=== PATIENT | male | born 1945 | race Caucasian/White ===

== ENCOUNTER 2018-09-21 20:50 | Inpatient (IN) ==
[2018-09-21] MEDS ORDERED: NS 1,000 ML IV ONE (23:35)
[2018-09-22 00:51] LABS: BASO# 0.03 X1000 (0.0-0.2); BASO% 0.3 % (0.0-0.8); EOS# 0.07 X1000 (0.0-0.7); EOS% 0.8 % (0.0-10.0); HEMATOCRIT 51.4 % (42.0-52.0); HEMOGLOBIN 16.8 g/dL (14.0-18.0); IMM GRAN# 0.02 X1000 (0.0-0.04); IMM GRAN% 0.2 % (0.0-0.5); LYMPH# 1.95 X1000 (1.2-3.4); LYMPH% 22.6 % (20.5-51.1); MCH 29.3 PG (27-31); MCHC 32.7 g/dL (33-37); MCV 89.7 FL (81-99); MONO# 0.74 X1000 (0.11-0.59); MONO% 8.6 % (1.7-9.3); MPV 10.4 FL (7.4-10.4); NEUT# 5.81 X1000 (1.4-6.5); NEUT% 67.5 % (42.2-75.2); PLT 198 X1000 (130-400); RBC 5.73 XMIL (4.7-6.1); RDW 13.3 % (11.5-14.5); WBC 8.62 X1000 (4.8-10.8)
[2018-09-22 01:28] LABS: ALB/GLOB RATIO 0.9; ALBUMIN 4.2 g/dL (3.5-5.0); CALCIUM 9.9 mg/dL (8.8-10.2); CREATININE 1.6 mg/dL (0.7-1.2); POTASSIUM 3.8 mmol/L (3.5-5.1); TOTAL BILIRUBIN 1.14 mg/dL (0.20-1.00); TOTAL PROTEIN 8.8 g/dL (6.3-8.3)
[2018-09-22 01:40] LABS: URINE SOURCE CATH
[2018-09-22 01:41] LABS: BILIRUBIN URINE SMALL (NEGATIVE); COLOR YELLOW; GLUCOSE URINE NEGATIVE (NEGATIVE); KETONE URINE TRACE mg/dL (NEGATIVE); SP GRAVITY URINE 1.031; TURBIDITY URINE CLEAR (CLEAR); UR EPITHELIAL CELLS >10 /HPF (<10); URINE BACTERIA NEGATIVE /HPF; URINE RBC <10 /HPF (<10); URINE WBC <10 /HPF (<10)
[2018-09-22 01:42] LABS: BLOOD URINE NEGATIVE (NEGATIVE); LEUKOCYTES URINE SMALL (NEGATIVE); NITRITE URINE NEGATIVE (NEGATIVE); PROTEIN URINE TRACE mg/dL (NEGATIVE); UROBILINOGEN URINE 2 mg/dL (NORMAL)
--- NOTE | 2018-09-22 02:49 | PROVIDER DOCUMENTATION ---
This chart was entered by Shira Carpenter Scribe, acting as scribe for Ruma Howard MD. HPI-General Adult - General Chief Complaint: General Adult Stated Complaint: UNABLE TO SWALLOW X 30 HRS. (PARKINSONS) Time Seen by Provider: 09/21/18 23:31 Source: patient Allergies/Adverse Reactions: Patient Allergies Allergy/AdvReac Type Severity Reaction Status Date / Time No Known Allergies Allergy Verified 05/19/18 17:00 Home Medications: Home Medication List Medication Instructions Recorded Confirmed Last Taken Type Rasagiline Mesylate [Azilect] 1 mg PO DAILY 12/17/11 05/19/18 05/19/18 History Citalopram Hydrobromide 20 mg PO HS 10/08/14 05/19/18 05/18/18 History [Citalopram HBr] Amlodipine [Norvasc] 5 mg PO DAILY 11/18/15 05/19/18 05/19/18 History Donepezil [Aricept] 10 mg PO QAM 11/18/15 05/19/18 05/19/18 History Glycopyrrolate 1 mg PO BID 11/18/15 05/19/18 05/19/18 History Pantoprazole [Protonix] 40 mg PO DAILY 11/18/15 05/19/18 05/19/18 History Quetiapine [Seroquel] 25 mg PO DAILY 11/18/15 05/19/18 05/19/18 History Carbidopa/Levodopa 1 tab [id number] 11/20/15 05/19/18 05/19/18 History [Carbidopa-Levodopa 25-100 Tab] Entacapone [Comtan] 200 mg 4XDAY 11/20/15 05/19/18 05/19/18 History Dutasteride [Avodart] 0.5 mg PO HS #30 capsule 11/26/15 05/19/18 05/19/18 Rx Metoprolol Succinate E.r. [Toprol 25 mg PO DAILY #30 tablet 11/26/15 05/19/18 05/19/18 Rx Xl] Docusate Sodium [Colace] 100 mg PO DAILY #10 cap 06/16/17 05/19/18 05/19/18 Rx Magnesium Citrate [Citrate of 300 ml PO ONCE #1 bottle 06/16/17 05/19/18 05/19/18 Rx Magnesia] - History of Present Illness -Gen Adult Nature of Presenting Problems: Pt is 72/M presenting to ED w/ family at bedside stating that he is unable to eat or drink. Pt has advanced staged Parkinson's Disease and it has started effecting his swallowing. Pt was here at the end of August for the same and given saline to rehydrate and then he was discharged. Family is unsure as to why he was not admitted then. Pt has home health that comes out and he has hx of speech therapy. Pt also has been for DBS testing and was given a feeding tube, but he only had it for a short time and it was deemed unneccesary at that time and taken out, this was three and 1/2 years ago. Family sts that he has lost about 25lbs since August and continues to lose weight because he has not had any nutrition. Location of Pain/Injury: reports: none Quality of Pain: reports: none Severity: reports: moderate Onset/Duration: reports: gradual Timing: reports: getting worse Context/Activities at Onset: reports: none Modifying Factors: improves with: nothing Associated Symptoms: reports: denies symptoms Similar Symptoms Previously?: Yes Recently seen or treated by another doctor?: Yes Review of Systems - Adult - REVIEW OF SYSTEMS - ADULT Constitutional: reports: no symptoms reported Eyes: reports: no symptoms reported Ears, Nose, Mouth & Throat: reports: no symptoms reported Cardiovascular: reports: no symptoms reported. denies: chest pain Respiratory: reports: no symptoms reported Gastrointestinal: reports: no symptoms reported. denies: abdominal pain, nausea, vomiting Genitourinary: reports: no symptoms reported Musculoskeletal: reports: no symptoms reported Integumentary: reports: no symptoms reported Neurological: reports: no symptoms reported. denies: dizziness/vertigo, headache/migraines Psychiatric: reports: no symptoms reported Endocrine: reports: no symptoms reported Hematologic/Lymphatic: reports: no symptoms reported Allergic/Immunologic: reports: no symptoms reported All Other Systems: Reviewed and Negative Past History - Adult - PAST MEDICAL HISTORY-ADULT Review of Records: reports: Old Records Reviewed, Nursing Assessment Review, Medications Reviewed, Social history reviewed & non-contributory. Major Childhood Illnesses: reports: denies history Cardiovascular: reports: HTN Respiratory: reports: denies history Gastrointestinal: reports: denies history Obstetrical/Gynecological: reports: denies history Genitourinary: reports: denies history Musculoskeletal: reports: denies history Neurological: reports: Parkinson's Endocrine/Immune: reports: denies history Other Conditions: reports: denies history - PRIOR SURGERIES/PROCEDURES Surgical/Procedure History: reports: other (AAA repair, TURP) - PRIOR HOSPITALIZATIONS Prior Hospitalizations: reports: none - IMMUNIZATION STATUS Childhood Immunizations: See Nurse Assessment Flu Vaccine: See Nurse Assessment - FAMILY HISTORY Family History: reviewed, not pertinent - SOCIAL HISTORY Smoking: quit greater than 1 year Substance Use: none/never Alcohol Use Frequency: never Living Situation: family Physical Exam-General - PHYSICAL EXAM-ADULT Initial Vital Signs Reviewed: Yes - CONSTITUTIONAL General Appearance: appears well, alert, no apparent distress, thin, other (frail) - EYES Eyes: PERRL/EOMI, pink conjunctivae - HEAD, EARS, NOSE, MOUTH & THROAT HENMT: normocephalic/atraumatic, normal ENT inspection, TMs normal, pharynx normal, other (dry mucous membranes) - NECK Neck: non-tender, full range of motion, supple, normal inspection - RESPIRATORY Respiratory: lungs clear - CARDIOVASCULAR Cardiovascular: regular rate, rhythm - GASTROINTESTINAL (ABDOMEN) Abdominal Exam: normal bowel sounds, non tender, soft - MUSCULOSKELETAL Back Exam: normal inspection Extremity: normal range of motion, non-tender, normal gait, normal inspection - SKIN Integumentary: normal color, warm/dry, other (dry, scaly skin) - NEUROLOGIC Neurologic: grossly normal - PSYCHIATRIC Psych/Mental Status: normal mood/affect, normal thought content, normal thought process, oriented x 3 Progress - PLAN OF CARE/RESULTS Progress/Plan/Lab Results: Vital Signs - 8 hr 09/21/18 20:52 Temperature 97.4 F L Pulse Rate 62 Respiratory Rate 16 Blood Pressure 134/88 O2 Sat by Pulse Oximetry 93 L Orders Category Date Time Status CBC WITH ELECTRONIC DIFF [HEME] Stat Lab 09/21/18 23:34 Uncollected CMP [COMPREHENSIVE METABOLIC PANEL] [CHEM] Stat Lab 09/21/18 23:34 Uncollected URINALYSIS W/POSS RFLX CULT [URINALYSIS] Stat Lab 09/21/18 23:34 Uncollected 0.9% Sodium Chloride Inj [Ns] 1,000 ml Med 09/21/18 23:35 Active IV 999 mls/hr Result Diagrams: 09/22/18 00:32 09/22/18 00:32 - CONSULTS/PCP/HOSPITALIST Notification #1 *Consult/PCP/Hospitalist*: Dr. Mcmanus Time Discussed: 02:49 Consult Disposition: Admit Departure - Departure Date of Disposition Decision: 09/22/18 Time of Disposition Decision: 02:49 DIAGNOSIS: Hypernatremia, PAUL (acute kidney injury), Swallowing dysfunction Disposition: ADMITTED INPATIENT 09 Certified Medical Emergency: Emergent Condition: Stable Referrals and Follow-Ups: Linda Godfrey MD [Primary Care Provider] - - Critical Care Note This patient required my direct & personal management of CC.: No Attestation - Physician/ GLENIS Attestation Patient care was provided by Advanced Practice Provider:: No The physician spent face to face time with patient:: Yes Advanced Practice Provider documentation review:: Supervising physician onsite and consulted in the evaluation and care of this patient. The physician did have a face to face encounter with the patient. This chart was documented by the indicated scribe, (Shira Carpenter, Gabbi) and accurately reflects the services I performed and decisions made by me, Ruma Howard MD, as attested by the provider's signature.
--- NOTE | 2018-09-22 04:15 | HISTORY AND PHYSICAL ---
PRIMARY CARE PHYSICIAN: Dr. Godfrey. CHIEF COMPLAINT: Difficulty swallowing, mental status changes. HISTORY OF PRESENTING ILLNESS: A 72-year-old male with a history of Parkinson's, hypertension, who had presented to emergency department with 4 days history of worsening mental status changes and also difficulty swallowing. The patient was not communicating well and most of the history is obtained from family members. As per family, he has not been taking his medicines for the past 4 days because he was having difficulty swallowing, seemed more confused and not really that responsive. He was evaluated in the emergency department. The patient seemed dehydrated and due to his overall presenting symptoms it was thought that we will place him for observation for further evaluation and management. At the time of my examination, patient was just basically staring and was not providing any history. PAST MEDICAL HISTORY: Parkinson's, hypertension. PAST SURGICAL HISTORY: Deep brain stimulator, TURP, aortic aneurysm repair. ALLERGIES: No known drug allergies. CURRENT MEDICATIONS: Include Norvasc 5 mg p.o. daily, carbidopa/levodopa 2500 one p.o. 4 times a day, citalopram 20 mg p.o. at bedtime, Aricept 10 mg p.o. q.a.m., Avodart 0.5 mg p.o. at bedtime, Comtan 200 mg 4 times a day, metoprolol 25 mg p.o. daily, pantoprazole 40 mg p.o. daily, Seroquel 25 mg p.o. daily. SOCIAL HISTORY: He is a former smoker. History of social alcohol use. No history of illicit drug use. FAMILY HISTORY: Positive for coronary disease in mother. REVIEW OF SYSTEM: Was limited due to patient was not communicating. PHYSICAL EXAMINATION: GENERAL: The patient is resting comfortably, basically just stares. VITAL SIGNS: Temperature 97.4 degrees, pulse 62, respirations 16, blood pressure 134/88. HEENT: Atraumatic, normocephalic. PERRLA. NECK: No masses. CHEST: Clear to auscultation. CARDIOVASCULAR: Regular rate and rhythm. ABDOMEN: Soft, positive bowel sounds. EXTREMITIES: No edema. NEUROLOGIC: He is awake and arousable, but is not really communicating. GENITOURINARY: No bladder distention. SKIN: Warm. LABORATORIES AND STUDIES: WBCs 8.62, hemoglobin 16.8, hematocrit 51.4, platelets 198,000. Sodium 148, potassium 3.8, chloride 108, CO2 is 22, BUN is 28, creatinine is 1.6, glucose is 88. ASSESSMENT: A 72-year-old male with a history of Parkinson's and hypertension who had presented to emergency department with 4 days history of mental status changes and difficulty swallowing. He was evaluated in the emergency department. The patient seemed clinically dehydrated and due to his presenting symptoms he will require admission for further management. 1. Altered mental status. 2. Dysphagia. 3. Dehydration. 4. Acute kidney injury. 5. Parkinson's. 6. Hypertension. PLAN: 1. We will admit patient to medical floor with telemetry. 2. We will continue with neuro checks. 3. We will continue with IV fluids. 4. We will restart his home medications for his Parkinson's. 5. Monitor his renal function. 6. We will continue with his antihypertensive agents. 7. Put patient on DVT prophylaxis with SCDs. 8. We will continue to follow, and reassess and make further recommendation based on patient's clinical course. cc: Gilson Mcmanus MD
[2018-09-22] MEDS: 1/2 NS 1,000 ML IV SCH ×3 (05:36→16:09)
[2018-09-22] MEDS: CLINIMIX E 4.25%-5% SOLUTION 1,000 ML IV SCH (15:57)
[2018-09-22] MEDS: LIPOSYN 20% 250 ML IV SCH (15:58)
--- NOTE | 2018-09-22 17:03 | PROGRESS NOTE ---
DATE: 09/22/2018 SUBJECTIVE: Today Mr. Kumar referred to be doing fairly okay. The was at the bedside at the time of the encounter. She was trying to feed him with some Coke, and it appeared that Mr. Kumar was actually choking, and would cough multiple times after every sip. OBJECTIVE: Vital signs: Blood pressure is 174/87, pulse of 90, respirations 20, temperature 97.7. The patient is saturating 100% on room air. General: Mr. Kumar is a 72-year-old male. He is in bed. He does not seem to be in distress. Mucosa is pink, slightly dry. Anicteric. Acyanotic. Neck: Supple. Chest: Good air entry bilaterally. Few crackles posteriorly. There is a port on the right anterior chest wall. Cardiovascular: Regular rate and rhythm. Abdomen: Soft. Extremities: No pedal edema. CATEGORY PLANNER: Patient is awake, alert, oriented to person, disoriented to place and time. Has a very feeble and weak voice. LABORATORY DATA: Has been reviewed. WBCs 8.62, hemoglobin is 16.8, platelet count of 198. Chemistry is also reviewed. Creatinine is 1.6. The latest we have on her last month was 1.3. ASSESSMENT: 1. Dysphagia, unclear etiology. I presume this is probably just from old age (presbyesophagus); however, other potential etiologies need to be completely ruled out. The patient will get a swallow evaluation with speech therapy under fluoroscopy to rule out any potential etiology. 2. Suspected aspirations. Aspiration precautions have been recommended. 3. Acute on chronic kidney disease. 4. Clinical volume depletion. Will continue with gentle hydration. 5. Mild hypernatremia due to dehydration. 6. History of advanced Parkinson disease. PLAN: In general, Mr. Kumar seems to be fairly stable. We are going to keep him n.p.o. until after the swallow evaluation. We will also get speech therapy to see him. We will start him on Clinimix with lipid infusion for both nutritional and hydration support. We will get physical therapy also to start working with him. Depending on the swallow evaluation, then we will give further recommendations. I have discussed the plan with the , who was at the bedside at the time of the encounter. cc: Radu Zavala MD
[2018-09-23] MEDS: 1/2 NS 1,000 ML IV SCH (04:05)
[2018-09-23] MEDS: CLINIMIX E 4.25%-5% SOLUTION 1,000 ML IV SCH ×2 (04:05→18:17)
[2018-09-23 06:45] LABS: BASO# 0.01 X1000 (0.0-0.2); BASO% 0.1 % (0.0-0.8); EOS# 0.14 X1000 (0.0-0.7); EOS% 1.4 % (0.0-10.0); HEMOGLOBIN 14.4 g/dL (14.0-18.0); IMM GRAN# 0.02 X1000 (0.0-0.04); IMM GRAN% 0.2 % (0.0-0.5); LYMPH# 1.64 X1000 (1.2-3.4); LYMPH% 15.9 % (20.5-51.1); MCH 29.8 PG (27-31); MCHC 32.7 g/dL (33-37); MCV 90.9 FL (81-99); MONO% 5.8 % (1.7-9.3); MPV 10.3 FL (7.4-10.4); NEUT# 7.88 X1000 (1.4-6.5); NEUT% 76.6 % (42.2-75.2); PLT 151 X1000 (130-400); RBC 4.84 XMIL (4.7-6.1); RDW 13.1 % (11.5-14.5); WBC 10.29 X1000 (4.8-10.8)
[2018-09-23 07:13] LABS: AGAP 11; BUN 22 mg/dL (8-22); CALCIUM 8.8 mg/dL (8.8-10.2); CHLORIDE 107 mmol/L (98-107); COSMO 285; CREATININE 1.1 mg/dL (0.7-1.2); ESTIMATED GFR > 60; GLUCOSE 98 mg/dL (70-104); POTASSIUM 4.1 mmol/L (3.5-5.1); SODIUM 141 mmol/L (136-145); TCO2 23 mmol/L (25-35)
--- NOTE | 2018-09-23 09:35 | Diag Imaging Result Doc PS360 ---
EXAM: CHEST-PORTABLE - 09/23/2018 HISTORY: dyspnea TECHNIQUE: Portable chest COMPARISON: 08/31/2018 FINDINGS: Heart size is normal. There are apparent COPD changes. There has been some further decrease in basilar opacities compared to prior. There is no new consolidation, pleural effusion, or pneumothorax identified. IMPRESSION: Apparent COPD changes. Some further decrease in basilar opacities compared to prior. Electronically signed by Jerry Richey 09/23/2018 9:32 AM
[2018-09-23] MEDS ORDERED: SEROQUEL PO PRN ×2 (10:05→14:12)
--- NOTE | 2018-09-23 10:30 | PROGRESS NOTE ---
DATE: 09/23/2018 SUBJECTIVE: This morning Mr. Kumar referred to be doing a little better. He looks more alert than yesterday. was at the bedside at the time of the encounter. OBJECTIVE: Vital signs: Blood pressure is 166/88, pulse of 101, respiration is 22, temperature 97.9 degrees. The patient is saturating 97% on room air. On general exam, Mr. Kumar is a 72- year-old gentleman. He is in bed. No distress. Mucosa is pink and moist. Anicteric. Acyanotic. Neck is supple. Chest with good air entry bilateral. A few crackles in the posterior lung dodd. Cardiovascular: Regular rate and rhythm. There are no murmurs, no rubs, no gallops. Gastrointestinal: The abdomen is soft. Extremities: No pedal edema. Central Nervous System: Patient is awake, alert, oriented to person and to place, disoriented to time. Very feeble and weak in voice and seems to have no expression on his face (mask face, which would be consistent with his underlying Parkinson disease). Musculoskeletal: The patient has some erythematous scaly lesions on his face. He also has a generator pocket on the right anterior chest wall. DIAGNOSTIC STUDIES: Laboratory data has been reviewed. CBC is completely normal. Chemistry: Sodium is down to 141, and creatinine has normalized at 1.1. ASSESSMENT: 1. Dysphagia. The patient is pending a swallow evaluation tomorrow. 2. Suspected aspirations. We will continue to observe aspiration pneumonia. From the family, it sounds like Mr. Kumar does better with a pureed diet and not so with liquid. We will eventually get more objective findings on the swallow evaluation. 3. Acute kidney injury. Creatinine has normalized. 4. Clinical volume depletion, improved. 5. Advanced Parkinson disease. Patient follows up with Neurology in [place]. He is currently on triple Parkinson medications, and he is also status post a brain stimulator. 6. Generalized weakness and deconditioning. Physical Therapy has been consulted. In general, we are going to continue with the Clinimix and lipid infusion. We will restart his medications today. Try and mix them with applesauce so he will be able to tolerate it. The patient is pending a swallow evaluation and then go from there. If there is a remarkable aspiration risk and the patient is not able to move the esophagus at all, then I will get Gastroenterology to evaluate the patient for possible PEG tube placement. cc: Radu Zavala MD
[2018-09-23] MEDS: LIPOSYN 20% 250 ML IV SCH (13:03)
[2018-09-23] MEDS: SINEMET 25/100 PO SCH ×4 (13:03→20:47)
[2018-09-23] MEDS: COMTAN PO SCH ×3 (17:47→20:36)
[2018-09-23] MEDS: CELEXA PO SCH ×2 (20:36→20:48)
[2018-09-24 07:26] LABS: BASO# 0.02 X1000 (0.0-0.2); BASO% 0.1 % (0.0-0.8); EOS# 0.09 X1000 (0.0-0.7); EOS% 0.6 % (0.0-10.0); HEMATOCRIT 48.1 % (42.0-52.0); HEMOGLOBIN 16.1 g/dL (14.0-18.0); IMM GRAN# 0.05 X1000 (0.0-0.04); IMM GRAN% 0.3 % (0.0-0.5); LYMPH% 10.8 % (20.5-51.1); MCHC 33.5 g/dL (33-37); MCV 89.7 FL (81-99); MONO# 0.74 X1000 (0.11-0.59); MONO% 4.7 % (1.7-9.3); MPV 10.9 FL (7.4-10.4); NEUT# 13.18 X1000 (1.4-6.5); NEUT% 83.5 % (42.2-75.2); PLT 149 X1000 (130-400); RBC 5.36 XMIL (4.7-6.1); RDW 13.2 % (11.5-14.5); WBC 15.78 X1000 (4.8-10.8)
[2018-09-24 07:47] LABS: AGAP 15; ALBUMIN 3.6 g/dL (3.5-5.0); BUN 25 mg/dL (8-22); CALCIUM 9.2 mg/dL (8.8-10.2); CHLORIDE 101 mmol/L (98-107); COSMO 276; CREATININE 1.1 mg/dL (0.7-1.2); ESTIMATED GFR > 60; GLUCOSE 90 mg/dL (70-104); PHOSPHORUS 3.5 mg/dL (2.7-4.5); POTASSIUM 4.6 mmol/L (3.5-5.1); SODIUM 136 mmol/L (136-145); TCO2 20 mmol/L (25-35)
[2018-09-24] MEDS ORDERED: RASAGILINE MESYLATE PO SCH (09:00)
[2018-09-24] MEDS ORDERED: PROTONIX PO SCH (09:00)
[2018-09-24] MEDS ORDERED: NORVASC PO SCH (09:00)
[2018-09-24] MEDS: SINEMET 25/100 PO SCH (09:40)
[2018-09-24] MEDS: COMTAN PO SCH (09:40)
[2018-09-24] MEDS: CLINIMIX E 4.25%-5% SOLUTION 1,000 ML IV SCH (09:40)
--- NOTE | 2018-09-24 11:00 | Diag Imaging Result Doc PS360 ---
EXAM: BA SWALLOW W/VIDEO SPEECH THER 09/24/2018 HISTORY: difficulty swallowing/aspirations TECHNIQUE: Modified barium swallow, 192 images, fluoroscopy time 50 seconds, 12 mGy. COMMENT: The patient aspirated on the first swallow which elicited a somewhat delayed cough reflex. The swallow of barium-containing bleeding resulted in very slow passage of the bolus past the glottis. IMPRESSION: Aspiration of thin liquids. Delayed swallow of pudding. Electronically signed by Skip Reagan 09/24/2018 10:58 AM
[2018-09-24] MEDS: LIPOSYN 20% 250 ML IV SCH (13:39)
--- NOTE | 2018-09-24 13:59 | PROGRESS NOTE ---
DATE: 09/24/2018 SUBJECTIVE: This morning, Mr. Kumar referred to be doing okay. Denies any new complaints. The was at the bedside as well as a nephew at the time of the encounter. OBJECTIVE: Vital Signs: Blood pressure is 148/74, pulse of 60, respirations are 21, temperature is 98.4 degrees. General Examination: Mr. Kumar is a 72-year-old, gentleman. He is in bed. No distress. HEENT: Mucosa is pink and moist. Anicteric. Acyanotic. Neck: Supple. Chest: Good air entry bilateral. No crepitations. No rhonchi. Cardiovascular: Regular rate and rhythm. No murmurs, no rubs, no gallops. There is a generator pocket on the right anterior chest wall. GI: Abdomen is soft, nontender. Bowel sounds are present. WOOD CLUB NECK WHIPPER: The patient is awake, alert, and oriented to person and to place. The patient is very weak and feeble, has very little expression on his face. Laboratory Data: WBC is 15.78, hemoglobin is 16.1, platelet count of 149,000. Chemistry is also reviewed. It is completely normal. The patient's swallow evaluation shows aspiration of thin liquid, delayed swallow of pudding. Speech therapy recommend to keep the patient NPO because of very high aspiration risk. ASSESSMENT: 1. Dysphagia with very severe abnormal swallow evaluation. The patient has been recommended to be nothing per oral. 2. Aspiration which has been documented also on swallow evaluation. Patient will be kept nothing per oral. 3. Acute kidney injury, resolved. 4. Clinical volume depletion, improved. 5. Advanced Parkinson's disease. 6. Generalized weakness and deconditioning. Physical therapy is on board. PLAN: Today, Mr. Kumar underwent the swallow evaluation which is remarkably abnormal. Has been recommended to be kept NPO. We will get GI to evaluate him for possible PEG placement. I have reviewed the results with the family members including the who was at the bedside at the time of the encounter and they are okay with GI evaluation. cc: Radu Zavala MD
[2018-09-24] MEDS ORDERED: CALMOSEPTINE OINTMENT TOP PRN (15:10)
[2018-09-25] MEDS: CLINIMIX E 4.25%-5% SOLUTION 1,000 ML IV SCH ×4 (02:23→17:04)
--- NOTE | 2018-09-25 12:32 | PROGRESS NOTE ---
DATE: 09/25/2018 SUBJECTIVE: This morning Mr. Kumar continues to be fairly stable. The was at the bedside at the time of the encounter. OBJECTIVE: Vital signs: Blood pressure 153/93, pulse of 50, respirations 20, and temperature 98.3 degrees. Patient is saturating 98% on room air. General: Mr. Kumar is a 72-year-old gentleman. He is in bed in no distress. Mucosa is pink and moist. Anicteric. Acyanotic. Neck: Supple. Chest: Good air entry bilaterally. There are no crepitations. No rhonchi. Cardiovascular: Regular rate and rhythm. No murmurs, no rubs, no gallops. There is a generator pocket in the right anterior chest wall from brain stimulator. GI: Abdomen is soft and nontender. ELECTRIC MOTOR ASSEMBLER: Patient is awake, alert, and follows some basic commands. Voice is extremely weak, and has no facial expression. LABORATORY DATA: None for today. ASSESSMENT: 1. Functional dysphagia with extremely high aspiration risk per swallow evaluation. We are pending GI evaluation for PEG tube placement. 2. Acute kidney injury on presentation due to clinical volume depletion improved. 3. Advanced Parkinson disease. We will continue with his home medications once we have a route for administration. 4. Generalized weakness and deconditioning. Physical Therapy is on board. 5. Nutritional needs. For now, we will continue with the Clinimix with lipid infusion and await for the PEG tube to start probably tube feedings. cc: Radu Zavala MD
[2018-09-25] MEDS: LIPOSYN 20% 250 ML IV SCH (14:30)
--- NOTE | 2018-09-25 16:59 | GASTROENTEROLOGY CONSULTATION ---
DATE: 09/25/2018 REASON FOR CONSULTATION: Oropharyngeal dysphagia, evaluation for PEG placement. HISTORY OF PRESENT ILLNESS: Mr. Larry Kumar is a 72-year-old gentleman with a past medical history of hypertension, Parkinson disease status post deep brain stimulator, BPH status post TURP, AAA repair, prior PEG placement, who presented on 09/22 with 4 days of worsening mental status changes and dysphagia to solids and liquids. History is obtained from the daughter given patient's altered mental status. Per the daughter, the patient was living independently with minimal assistance up until about a month ago. At that point, he was noted to have worsening dysphagia to solids and liquids. He has lost about 20 pounds in the last month. He has also been skipping some of his Parkinson medications given difficulty swallowing, which has likely exacerbated his symptoms. He has become more sedentary; unable to take care of his ADLs and IDLs for the last 3 weeks. He was seen by his urologist and it was thought that he had acute kidney injury related to volume depletion. On presentation here, he was found to have acute kidney injury. The rest of his vital signs were stable. He was given IV fluids. Labs were also notable for hypernatremia. Since admission, he has been evaluated by speech therapy and underwent a modified barium swallow that showed aspiration of thin liquids, delayed swallowing of pudding. The final report showed that the patient was unable to adequately protect his airway when swallowing. It was determined that the patient was at high risk for aspiration and alternative non-oral means of nutrition and medication administration was recommended. REVIEW OF SYSTEMS: Limited given the patient's inability to verbalize complaints. He does nod to questions appropriately. PAST MEDICAL HISTORY: As per HPI. PAST SURGICAL HISTORY: TURP, deep brain stimulator, AAA repair, prior PEG placement. FAMILY HISTORY: No family history of GI malignancies. SOCIAL HISTORY: Remote smoker. No alcohol or drug use. Lives with and kids nearby. MEDICATIONS: The patient is on Stalevo, Azilect, tamsulosin, Nuplazid, citalopram, Norvasc, pantoprazole, Seroquel. PHYSICAL EXAMINATION: Vital Signs: Temperature 98.3 degrees, heart rate 58, respiratory rate 20, blood pressure 153/93, O2 saturation 98% on room air. General: The patient is awake, alert, in no acute distress. HEENT: Mask facies. Sclerae anicteric. Dry mucous membranes. Extraocular motor intact. Neck: Supple. No JVD or lymphadenopathy. Cardiac: Regular rate and rhythm. No murmurs. Chest: A palpable subcutaneous battery is found in the right upper chest. Lungs: Clear to auscultation bilaterally. No wheezing. Abdomen: Soft, nontender, nondistended. Normoactive bowel sounds. No rebound or guarding. Extremities: No clubbing, cyanosis, or edema. Musculoskeletal: Muscle atrophy throughout. Skin: Scattered bruising in the upper extremities. Neurologic: The patient appears to be moving his extremities symmetrically. Difficult to assess cranial nerves given generalized weakness. No obvious focal deficits. LABS: White count of 15.7, hemoglobin from 10.2 on 09/23, hemoglobin 16.1, platelets 149,000. Sodium 136, potassium 4.6, chloride 101, bicarb 20, BUN of 25, creatinine 1.1 from 1.6 on admission. LFTs on 09/22 were unrevealing. Albumin 3.6. UA showed trace proteinuria, ketones, bilirubin, small leukocytes, and epithelial cells. Urine culture is negative. IMAGING: Chest x-ray on 09/23 showed apparent COPD changes, some further decrease in bibasilar opacities compared to prior. ASSESSMENT AND PLAN: Mr. Larry Kumar is a 72-year-old gentleman with a past medical history of Parkinson disease requiring deep brain stimulator and prior PEG placement for dysphagia who was admitted here with hypernatremia, acute kidney injury, altered mental status in the setting of volume depletion from decreased PO intake. Speech evaluation here with MBS showed maxwell aspiration of thin liquids. The patient has been on Clinimix and IV lipids. He is not on any blood thinners. His platelets are borderline. Hemoglobin is normal. Notable leukocytosis that is new today from unclear etiology. He is afebrile. We will plan for NPO after midnight for EGD with PEG placement. We will give him 1 g of Keflex intraoperatively. I have discussed the plan and risks of the procedures as well as alternatives with the daughter and patient at bedside. They were agreeable with proceeding with PEG placement. 1. Oropharyngeal dysphagia: 2/ to Parkinson's: plan for EGD with PEG placement 2. Parkinson. Will defer treatment to primary team. 3. Protein calorie malnutrition. Nutrition to follow and offer recommendations as far as liquid supplement 4. Leukocytosis, unclear etiology. Urine culture was neg. CXR neg. Defer workup to primary team. 5. Acute kidney injury. Resolved with fluid resuscitation. 6. Hypernatremia. Resolved with IV fluids as well. Thank you for this consult. We will follow with you. Please call with any questions or concerns. MTDD
[2018-09-26] MEDS: CLINIMIX E 4.25%-5% SOLUTION 1,000 ML IV SCH (06:32)
[2018-09-26] MEDS ORDERED: XYLOCAINE-MPF 2% ONE ×2 (07:18→07:19)
[2018-09-26] MEDS ORDERED: DIPRIVAN 1% ONE ×2 (07:18→08:20)
[2018-09-26] MEDS ORDERED: FENTANYL ONE (07:20)
[2018-09-26] MEDS ORDERED: KEFZOL 1 GM/D5W 1 GM/50 ML IVPB ONE (07:56)
--- NOTE | 2018-09-26 08:41 | ENDOSCOPY OPERATIVE NOTE ---
[facility] ENDOSCOPY OPERATIVE NOTE , EGD WITH PEG PROCEDURE REPORT EXAM DATE: 09/26/2018 PATIENT NAME: Larry Kumar MR #: [id number] BIRTHDATE: 1945 ATTENDING: Filipe Lewis MD STATUS: inpatient ACUPUNCTURE PHYSICIAN: Linda Alamo and Francine Avalos INDICATIONS: The patient is a 72 yr old male here for an EGD with PEG due to dysphagia, pharyngeal. PROCEDURE PERFORMED: EGD w/ percutaneous gastrostomy tube placement MEDICATIONS: Per Anesthesia, Ancef 1gm IV TOPICAL ANESTHETIC: Lidocaine1% CONSENT: The patient understands the risks and benefits of the procedure and understands that these r isks include, but are not limited to: sedation, allergic reaction, infection, perforation and/or bleeding. Alternative means of evaluation and treatment include, among others: physical exam, x-rays, and/or surgical intervention. The patient elects to proceed with this endoscopic procedure. HISTORY AND PHYSICAL: 09/26/2018 function. Hand hygiene and appropriate measures for infection prevention was taken. After the risks, benefits and alternatives of the procedure were thoroughly explained, Informed consent was verified, confirmed and timeout was successfully executed by the treatment team. The patient was anesthetized with topical anesthesia and the RF55-c70 ([id number]) endoscope was introduced through the mouth and advanced to the second portion of the duoden um. The instrument was slowly withdrawn as the mucosa was fully examined. ESOPHAGUS: The mucosa of the esophagus appeared normal. STOMACH: Gastritis (inflammation) was found in the gastric antrum. DUODENUM: The duodenum was normal. The stomach was then inflated with air, and by a combination of transillumination and manual palpatio n, the site for the gastrostomy tube placement was selected and marked on the anterior abdominal wall. The skin of the a erior abdomen was surgically prepped and draped. Utilizing strict sterile technique, the selected site was then anesthetized with 1% lidocaine by inje ction into the skin and subcutaneous tissue. A 1 cm incision was made through the skin and subcutaneous tissue, and the needle/cannula assembly was then passed through the abdominal wall and through the anterior wall of the stomach, nichol ntaining visualization with the endoscope. A snare device previously placed through the instrument channel wa s then opened and placed around the cannula, the needle was removed, and the insertion wire was passed through the arti jj and into the stomach lumen. The snare was then loosened from the cannula, and repositioned to snare the insertion wire. The snare was then pulled up to the endoscope distal tip, and the scope was then withdrawn bringing with it the snare and insertion wire. The insertion wire was then released from the snare, and then loop-attached to the Junaid Cook 24 Fr gastrostomy tube. Using the "pull technique", the G-tube was then pulled into place by traction on the insertion wire a t the abdominal wall end. The G-tube insertion site was then cleansed once again, and the external bolster was placed over the tube to secure it to the abdominal wall at 2cm. A sterile dressing was then applied, and the procedu re terminated. Retroflexion was performed in the stomach and revealed no abnormalities. The gastroscope was then sl owly withdrawn and removed. ADVERSE EVENT: There were no complications. IMPRESSIONS: 1. The mucosa of the esophagus appeared normal 2. Gastritis (inflammation) was found in the gastric antrum 3. 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 The verification of the translation of this report to the ICD and CPT co jesus and modifiers is the sole responsibility of the health care institution and practicing physician where this report was generated. [employer] will not be held responsible for the validity of the ICD and CPT codes i ncluded on this report. [employer] assumes no liability for data contained or not contained herein. CPT is a registered tra demark of the [employer]. PATIENT NAME: Larry Kumar MR#: [id number]
--- NOTE | 2018-09-26 14:16 | PROGRESS NOTE ---
DATE: 09/26/2018 SUBJECTIVE: This morning, Mr. Kumar remained stable. No family member was at the bedside at the time of the encounter. OBJECTIVE: Vital Signs: Blood pressure was 177/96, pulse of 73, respirations are 18, temperature is 96.8 degrees. General Examination: Mr. Kumar is a 72-year-old, male. He is in bed, in no distress. HEENT: Mucosa is pink and moist. He has been drooling from his mouth. Chest: Clear to auscultation. Cardiovascular: Regular rate and rhythm. Abdomen: Soft. There is a newly inserted PEG tube in place. Boyer catheter is in place. Extremities: No pedal edema. 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 Will follow basic commands but has an extremely weak voice and no facial expression. Lab: No lab for today. ASSESSMENT: 1. Functional dysphagia with extremely high aspiration risk per swallow evaluation. Patient is currently nothing per oral. Just had a percutaneous endoscopic gastrostomy tube placement. 2. Acute kidney injury on presentation secondary to volume depletion, improved. 3. Advanced Parkinson's disease. The patient follows up with a neurologist in [place]. 4. Generalized weakness and deconditioning. Physical therapy is on board. 5. Nutritional needs. The patient has just been evaluated by a dietitian and we are going to start on tube feedings. Disposition. Still pending rehab placement for Mr. Kumar. We are going to start Mr. Kumar' medications through the percutaneous endoscopic gastrostomy tube from today. cc: Radu Zavala MD MTDD
[2018-09-26] MEDS: ROBINUL PEG SCH (16:07)
[2018-09-26] MEDS: COMTAN PEG SCH ×2 (16:08→21:11)
[2018-09-26] MEDS: LIPOSYN 20% 250 ML IV SCH (16:09)
[2018-09-26] MEDS: NON-FORMULARY MED PEG SCH (17:27)
[2018-09-26] MEDS: LOPRESSOR PEG SCH (21:12)
[2018-09-26] MEDS: SINEMET 25/100 PEG SCH (21:12)
[2018-09-27] MEDS: CLINIMIX E 4.25%-5% SOLUTION 1,000 ML IV SCH ×2 (03:48→14:25)
[2018-09-27 08:22] LABS: AGAP 14; ALBUMIN 3.6 g/dL (3.5-5.0); ALKALINE PHOSPHATASE 55 U/L (32-122); BUN 25 mg/dL (8-22); CALCIUM 9.3 mg/dL (8.8-10.2); CHLORIDE 101 mmol/L (98-107); COSMO 280; CREATININE 1.1 mg/dL (0.7-1.2); ESTIMATED GFR > 60; GLUCOSE 93 mg/dL (70-104); GOT 13 U/L (10-34); GPT 8 U/L (10-44); MAGNESIUM 2.4 mg/dL (1.5-2.7); PHOSPHORUS 4.4 mg/dL (2.7-4.5); POTASSIUM 4.7 mmol/L (3.5-5.1); PREALBUMIN 16.6 mg/dL (20-40); SODIUM 138 mmol/L (136-145); TCO2 23 mmol/L (25-35); TOTAL BILIRUBIN 0.93 mg/dL (0.20-1.00); TOTAL PROTEIN 7.2 g/dL (6.3-8.3)
[2018-09-27] MEDS ORDERED: FLOMAX PEG SCH (09:00)
[2018-09-27] MEDS ORDERED: AVODART PEG SCH (09:00)
[2018-09-27] MEDS: ARICEPT PEG SCH (10:22)
[2018-09-27] MEDS: COMTAN PEG SCH ×4 (10:22→22:06)
[2018-09-27] MEDS: LOPRESSOR PEG SCH ×2 (10:22→22:06)
[2018-09-27] MEDS: ROBINUL PEG SCH (10:27)
[2018-09-27] MEDS: NON-FORMULARY MED PEG SCH (10:27)
[2018-09-27] MEDS: SEROQUEL PEG SCH (10:28)
[2018-09-27] MEDS: SINEMET 25/100 PEG SCH ×3 (10:28→22:06)
--- NOTE | 2018-09-27 11:06 | GASTROENTEROLOGY PROGRESS NOTE ---
DATE: 09/27/2018 SUBJECTIVE: Patient resting in bed. He denies any new complaints. He had a PEG tube placed; he is on tube feeds. He is tolerating them well. He moved his bowels. The last bowel movement was today. OBJECTIVE: Vitals: Temperature of 98 degrees, pulse rate of 65, respiratory rate 16, blood pressure 130/94, satting 97% on 2 L nasal cannula. General Appearance: Body weight 112 pounds 8 ounces. BMI 15.7 kg. General Appearance: Thinly built, lying in bed, in no acute distress. HEENT: No pallor. No icterus. Neck: Supple. Abdomen: Abdominal binder in place. The PEG tube site appeared not healing well with no erythema or drainage or pus around the external bumper. Abdomen is soft, nontender, nondistended, no guarding. Extremities: No cyanosis, clubbing. Neurologic: Neuro kumari, he was awake and could only nod to some of my questions. LABS: Sodium 138, potassium 4.7, chloride 101, bicarbonate 23, anion gap of 14. BUN of 25, creatinine 1.1, glucose of 93, calcium 9.3, phosphorus 4.4, magnesium 2.4. Total bilirubin is 0.93, AST 13, ALT 8, alkaline phosphatase 55, total protein 7.2, albumin of 3.6. Pre-albumin is 16.6. Urine culture showing no growth. IMPRESSION AND PLAN: 1. Functional dysphagia with extremely high aspiration risk per swallow evaluation, and he is status post percutaneous endoscopic gastrostomy tube placement by Dr. Lewis. 2. Acute kidney injury. 3. Advanced Parkinson disease. 4. Generalized weakness and deconditioning. RECOMMENDATIONS: Continue PEG tube feeding as before under the care of nutrition team. Continue to keep the PEG tube site clean. Continue on gastrointestinal prophylaxis with Pepcid per PEG tube daily. We will sign off at this time. Please call us with any questions or concerns or any problems with the PEG tube. cc: MD Linda Rodriguez MD
--- NOTE | 2018-09-27 13:06 | PROGRESS NOTE ---
DATE: 09/27/2018 SUBJECTIVE: This morning Mr. Kumar referred to be doing well. The and the knees were at the bedside at the time of the encounter. He is currently tolerating his tube feedings, and he has been getting his medications through the PEG tube. OBJECTIVELY: Vitals: Blood pressure is 100/72, pulse of 59, respiration is 16, temperature 97.0 degrees, patient is saturating 98% on 2 L. On general exam, Mr. Kumar is a 72-year-old gentleman. He is in bed. No distress. Mucosa is pink and moist. Anicteric. Acyanotic. Neck is supple. Chest: Good air entry bilateral. No crepitations. Cardiovascular: Regular rate and rhythm. Abdomen: Soft. There is a PEG tube in place, and it has a binder over it. Extremities: No pedal edema. Central Nervous System: Patient is awake, alert, follows some basic commands. His voice is sounding a little bit stronger than yesterday. DIAGNOSTIC STUDIES: His creatinine is 1.1. Chemistry is completely unremarkable. Prealbumin is 16.6. Urine showed no growth. ASSESSMENT: 1. Functional dysphagia with extreme extremely high aspiration risk per swallow evaluation. The patient is currently nothing per oral as recommended by Speech Therapy. He is tolerating his tube feedings and medications through the PEG tube. 2. Acute kidney injury on presentation, secondary to volume depletion, improved. 3. Advanced Parkinson disease. The patient has been started on his home medications. He normally follows up with neurologist in [place]. 4. Generalized weakness and deconditioning. Patient is getting physical therapy. 5. Nutritional needs. Tube feedings are being tolerated. DISPOSITION: Mr. Kumar is now clinically stable to be discharged. We are pending final arrangements from Social Work with the family members to know where they would want to place Mr. Kumar. From the , Mr. Kumar does not seem to have a very good performance status to start with. He was able to use some front wheel walker and would move about 20 feet, but that was it. He would go out with a scooter or a wheelchair, and he needs a lot of help at home, even before he came to the hospital. Obviously, staying in hospital for few days, he has lost some muscle functionality and getting him to rehabilitation would be of utmost help to assist in restoring some of his functionality before he took sick. cc: Radu Zavala MD
[2018-09-27] MEDS: LIPOSYN 20% 250 ML IV SCH (14:25)
[2018-09-27] MEDS: PEPCID LIQUID GT SCH (14:43)
[2018-09-28 07:56] LABS: AGAP 13; BUN 29 mg/dL (8-22); CALCIUM 9.9 mg/dL (8.8-10.2); CHLORIDE 102 mmol/L (98-107); COSMO 276; ESTIMATED GFR > 60; GLUCOSE 97 mg/dL (70-104); MAGNESIUM 2.3 mg/dL (1.5-2.7); PHOSPHORUS 3.3 mg/dL (2.7-4.5); SODIUM 135 mmol/L (136-145); TCO2 20 mmol/L (25-35)
[2018-09-28] MEDS: SINEMET 25/100 PEG SCH ×4 (08:48→20:39)
[2018-09-28] MEDS: COMTAN PEG SCH ×4 (08:48→20:40)
[2018-09-28] MEDS: LOPRESSOR PEG SCH (08:48)
[2018-09-28] MEDS: ARICEPT PEG SCH (08:48)
[2018-09-28] MEDS: ROBINUL PEG SCH (08:50)
[2018-09-28] MEDS: SEROQUEL PEG SCH (11:48)
[2018-09-28] MEDS ORDERED: SEROQUEL PEG PRN (12:45)
[2018-09-28] MEDS ORDERED: NS 500 ML IV ONE (12:46)
[2018-09-28] MEDS: NON-FORMULARY MED PEG SCH (14:10)
--- NOTE | 2018-09-28 14:22 | PROGRESS NOTE ---
DATE: 09/28/2018 SUBJECTIVE: This morning Mr. Kumar is referred to be fairly stable. I understand early on his blood pressures were a little on the lower end. OBJECTIVE: Current vitals: Blood pressure is 88/62, MAP of 67, pulse is 54, respirations 17 and temperature is 98.6 degrees. General exam: Mr. Kumar is a 72-year-old elderly male. He is in bed, no distress. HEENT: Mucosa is pink, slightly dry. Anicteric. Acyanotic. Neck: Supple. Chest: Good air entry bilaterally. No crepitations. No rhonchi. Cardiovascular: Regular rate and rhythm. GI: Abdomen is soft. PEG tube is in place. There is a binder over it. Bowel sounds present. Extremities: No pedal edema. 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 LABORATORY DATA: No CBC for today. The CMP shows sodium is 135. Rest of chemistry is unremarkable. ASSESSMENT: 1. Functional dysphagia with extreme high aspiration risk per swallow evaluation. The patient is on nothing by mouth as recommended by speech. Percutaneous endoscopic gastrostomy tube has been placed. 2. Acute kidney injury secondary to volume depletion on presentation, improved. 3. Advanced Parkinson disease. Medication have been restarted. Patient follows up with a neurologist at [place]. 4. Generalized weakness and deconditioning. Physical therapy is on board. 5. Nutritional needs: The patient is tolerating tube feedings. 6. Hypotension, presumably due to volume depletion versus medication side effects. Metoprolol will be discontinued for now. We will give the patient a bolus of saline and re-evaluate his vitals. PLAN: So, in general, Mr. Kumar seems to be fairly stable. However, blood pressure and pulse are on the lower end. We are giving him a bolus of saline 500. He seems to be tolerating his tube feedings, so we will continue. Mr. Kumar has a very advanced form of Parkinson disease. He has not shown any remarkable muscular strength in the last couple days. I am not sure if he would be able to qualify to go to [facility] for the level of physical therapy that is needed. I did discuss this with the family and notified them that by Monday if we do not see that much progress for him to go, he probably will need to go to a SNF to get him progressively stronger before he can go to [facility]. cc: Radu Zavala MD MTDD
[2018-09-28] MEDS: PEPCID LIQUID GT SCH (17:01)
[2018-09-29 07:26] LABS: HEMOGLOBIN 15.2 g/dL (14.0-18.0); MCH 30.1 PG (27-31); MCV 91.1 FL (81-99); MPV 10.9 FL (7.4-10.4); RBC 5.05 XMIL (4.7-6.1); RDW 13.1 % (11.5-14.5); WBC 5.35 X1000 (4.8-10.8)
[2018-09-29 07:29] LABS: AGAP 9; ALB/GLOB RATIO 0.8; ALKALINE PHOSPHATASE 51 U/L (32-122); BUN 26 mg/dL (8-22); CALCIUM 8.4 mg/dL (8.8-10.2); CHLORIDE 100 mmol/L (98-107); COSMO 274; CREATININE 1.1 mg/dL (0.7-1.2); ESTIMATED GFR > 60; GLUCOSE 118 mg/dL (70-104); GOT 16 U/L (10-34); GPT 5 U/L (10-44); MAGNESIUM 2.2 mg/dL (1.5-2.7); PHOSPHORUS 3.5 mg/dL (2.7-4.5); POTASSIUM 4.2 mmol/L (3.5-5.1); SODIUM 134 mmol/L (136-145); TCO2 25 mmol/L (25-35); TOTAL BILIRUBIN 0.46 mg/dL (0.20-1.00); TOTAL PROTEIN 6.7 g/dL (6.3-8.3)
[2018-09-29] MEDS: NON-FORMULARY MED PEG SCH (08:59)
[2018-09-29] MEDS: COMTAN PEG SCH ×4 (08:59→20:00)
[2018-09-29] MEDS: SINEMET 25/100 PEG SCH ×4 (09:00→20:00)
[2018-09-29] MEDS: ROBINUL PEG SCH (09:00)
[2018-09-29] MEDS: ARICEPT PEG SCH (09:09)
[2018-09-29] MEDS: PEPCID LIQUID GT SCH (13:33)
--- NOTE | 2018-09-29 20:35 | PROGRESS NOTE ---
DATE: 09/29/2018 This morning Mr. Kumar continues to be the same. No new complaints, extremely weak. There was no family member at the bedside at the time of the encounter. OBJECTIVE: Vital signs: Blood pressure is 129/76, pulse of 59, respiration is 22, temperature 97.5 degrees, patient is saturating 97% on room air. General: Mr. Kumar 72-year-old male he is in bed no distress. Mucosa is pink and slightly dry. Anicteric. Acyanotic. Neck: Supple. He seems to be remarkably rigid all over. Chest: Good air entry bilateral. Cardiovascular: Regular rate and rhythm. Abdomen: Soft. PEG tube is in place. There is a binder over the PEG tube. 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 He is remarkably stiff, hypertonic everywhere. LABORATORY DATA: WBC is 5.35, hemoglobin is 15.2, platelet count of 176,000. Chemistry is also reviewed. Sodium is 134, rest of chemistry is completely normal. Urine was negative. CURRENT MEDICATIONS: Have all been reviewed. ASSESSMENT: 1. Functional dysphagia with extreme high aspiration risk per swallow evaluation. The patient is NPO and is status post percutaneous endoscopic gastrostomy tube placement. 2. Acute kidney injury secondary to volume depletion improved. 3. Advanced Parkinson disease. Patient is on different medications and normally follows up with neurologist at [place]. 4. Generalized weakness and deconditioning. Physical therapy is on board. 5. Hypotension improved. 6. Nutritional needs. Patient is tolerating percutaneous endoscopic gastrostomy tube. So Mr. Kumar continues to be fairly the same. His swallow difficulty has been overcome by the PEG tube. We are just awaiting placement on Mr. Kumar. There is the recommendation for him to go to [facility]. However I am not sure if he will be strong enough to go there, will be looking for other SNF facility for him at this point. cc: Radu Zavala MD [facility]
[2018-09-30 07:37] LABS: AGAP 8; ALB/GLOB RATIO 0.7; ALBUMIN 3.2 g/dL (3.5-5.0); ALKALINE PHOSPHATASE 55 U/L (32-122); BUN 22 mg/dL (8-22); CHLORIDE 100 mmol/L (98-107); COSMO 275; ESTIMATED GFR > 60; GLUCOSE 102 mg/dL (70-104); GOT 18 U/L (10-34); GPT 7 U/L (10-44); POTASSIUM 4.4 mmol/L (3.5-5.1); SODIUM 136 mmol/L (136-145); TCO2 28 mmol/L (25-35); TOTAL BILIRUBIN 0.77 mg/dL (0.20-1.00); TOTAL PROTEIN 7.6 g/dL (6.3-8.3)
[2018-09-30] MEDS: COMTAN PEG SCH ×4 (09:50→19:59)
[2018-09-30] MEDS: SINEMET 25/100 PEG SCH ×4 (09:50→19:59)
[2018-09-30] MEDS: ARICEPT PEG SCH (09:50)
[2018-09-30] MEDS: ROBINUL PEG SCH (09:51)
[2018-09-30] MEDS: NON-FORMULARY MED PEG SCH (11:08)
[2018-09-30] MEDS: PEPCID LIQUID GT SCH (11:09)
--- NOTE | 2018-09-30 11:29 | PROGRESS NOTE ---
DATE: 09/30/2018 SUBJECTIVE: This morning Mr. Kumar refers to be fairly stable. No new complaints. He said was doing a little better. Voice continues to be very feeble. OBJECTIVE: Vitals: Blood pressure is 117/80, pulse of 73, respiration is 19, temperature is 97 degrees, the patient is saturating 96% on room air. On general exam, Mr. Kumar is a 72-year-old male. He was in bed. No distress. Mucosa is pink and moist. Anicteric. Acyanotic. Neck is supple. Chest: Good air entry bilaterally. No crepitations. No rhonchi. Cardiovascular: Regular rate and rhythm. No murmurs, no rubs, no gallops. Gastrointestinal: Abdomen is soft. The PEG tube is in place. Bowel sounds are present. There is a binder over the PEG tube. Central Nervous System: Patient is awake, alert. Follow basic commands. Seems to be quite hypertonic everywhere and the voice is very weak. DIAGNOSTIC STUDIES: Chemistry is completely normal today. MEDICATION: Patient's medications have all been reviewed. OTHER RECORDS: Physical therapy session from yesterday was reviewed. ASSESSMENT: 1. Functional dysphagia with extremely high aspiration risk per swallow evaluation. Patient is currently n.p.o., and he is status post PEG tube placement. 2. Acute kidney injury secondary to volume depletion, resolved. 3. Advanced Parkinson disease. The patient has been started back on his medications, and he will follow up with his neurologist in [place] at a later date. 4. Generalized weakness and deconditioning. Physical Therapy is on board. 5. Hypotension, resolved. 6. Nutritional needs. Patient continues to be tolerating well the PEG tube feedings. DISPOSITION: Pending [facility] placement. cc: Radu Zavala MD
[2018-10-01 07:20] LABS: AGAP 12; ALB/GLOB RATIO 0.7; ALKALINE PHOSPHATASE 55 U/L (32-122); BUN 24 mg/dL (8-22); CALCIUM 8.8 mg/dL (8.8-10.2); CHLORIDE 99 mmol/L (98-107); COSMO 275; CREATININE 1.1 mg/dL (0.7-1.2); ESTIMATED GFR > 60; GLUCOSE 107 mg/dL (70-104); GOT 15 U/L (10-34); GPT 8 U/L (10-44); POTASSIUM 4.4 mmol/L (3.5-5.1); SODIUM 135 mmol/L (136-145); TCO2 24 mmol/L (25-35); TOTAL BILIRUBIN 0.92 mg/dL (0.20-1.00); TOTAL PROTEIN 7.4 g/dL (6.3-8.3)
[2018-10-01] MEDS: ARICEPT PEG SCH (09:21)
[2018-10-01] MEDS: COMTAN PEG SCH ×4 (09:21→23:55)
[2018-10-01] MEDS: SINEMET 25/100 PEG SCH ×4 (09:21→23:55)
[2018-10-01] MEDS: NON-FORMULARY MED PEG SCH (09:21)
[2018-10-01] MEDS: PEPCID LIQUID GT SCH (09:22)
[2018-10-01] MEDS: ROBINUL PEG SCH (09:23)
[2018-10-01] MEDS ORDERED: VANCOMYCIN 1 GM/NS 1 GM/250 ML IVPB IV ONE (10:57)
[2018-10-01] MEDS: ZOSYN 3.375 GM in NS 50 ML IV SCH ×3 (12:21→23:36)
[2018-10-01] MEDS: PEPCID IV SCH ×2 (12:23→23:36)
[2018-10-01] MEDS: D5 NS 1,000 ML IV SCH (12:24)
--- NOTE | 2018-10-01 12:26 | Diag Imaging Result Doc PS360 ---
EXAM: CT ABD/PELVIS W/IV CONT ONLY INDICATION: Abdominal pain, recent peg placement TECHNIQUE: This exam was performed using automated exposure control, adjustment of mA or kV according to patient size, and/or use of iterative reconstruction technique. COMPARISON: 11/21/2015 FINDINGS: There are fibrotic changes at both lung bases and likely a component of subsegmental atelectasis. The balloon at the end of a few appears to be in the subcutaneous soft tissues. It is unclear if the tip of the tube is actually in the lumen of the stomach. There is soft tissue edema and gas around the track of the PEG tube in the soft tissues at the ventral abdominal wall. Cellulitis cannot be excluded. No focal bowel wall thickening or bowel obstruction is appreciated. No free abdominal gas is identified. The gallbladder, liver, spleen, pancreas, and adrenal glands are essentially unremarkable. There is chronic dilation of the right renal collecting system that is stable and there is associated right renal atrophy. There are a couple of small simple appearing cysts associated with the left kidney. The urinary bladder is partially distended and there is a stable left bladder diverticulum. The prostate is mildly enlarged but stable. There is extensive aortoiliac atherosclerotic disease. There is a patent aortoiliac stent graft. The abdominal aortic aneurysm is smaller than the previous study. However, there is aneurysmal dilation of the descending thoracic aorta measuring up to 4.3 cm in diameter on the coronal reformatted images. It appears larger than the previous study. There is multilevel lumbar spondylosis. IMPRESSION: 1.PEG tube balloon in the subcutaneous soft tissues. It is unclear the tip of the PEG tube is actually in the lumen of the stomach. 2.Soft tissue edema and gas at the ventral abdominal wall on the left around the PEG tube tract. 3.The descending thoracic aortic aneurysm that appears larger than the previous study. 4.Other incidental/nonacute findings detailed above. Electronically signed by Jony Alex 10/01/2018 12:24 PM
--- NOTE | 2018-10-01 13:19 | PROGRESS NOTE ---
DATE: 10/01/2018 SUBJECTIVE: Today Mr. Kumar referred to be doing a little better. He was sitting up at the edge of the bed with physical therapy at the time of the encounter. His voice sounds a little stronger than it did before. OBJECTIVE: Vitals: Blood pressure is 120/77, pulse rate of 63, respiration is 18, temperature 97.7 degrees. On general exam, Mr. Kumar is a 72-year-old male. He was sitting up at the edge of the bed. He went and laid down. He was not in any distress. Mucosa is pink and moist. Anicteric. Acyanotic. Neck is supple. Chest: Good air entry bilateral. Cardiovascular: Regular rate and rhythm. Abdomen is soft. There is a binder over the PEG tube, but when you remove the binder, the insertion site looks remarkably red and minimally swollen. The patient seems to grimace when you palpate the area. Central Nervous System: Patient is awake, alert, still hypertonic. DIAGNOSTIC STUDIES: Chemistry is reviewed; it is unremarkable. ASSESSMENT: 1. Functional dysphagia with extreme high aspiration risk. 2. Status post percutaneous endoscopic gastrostomy tube placement. Insertion site looks slightly swollen. The CT scan this morning official report seems to suggest that the PEG tube balloon is in the subcutaneous soft tissue. I had earlier on discussed the tube issues with Dr. Jett, and he suggested we get Surgery to evaluate the patient for possible surgically placed tube. 3. Acute kidney injury on presentation, resolved. 4. Advanced Parkinson disease. 5. Generalized weakness and deconditioning. 6. Hypotension secondary to intravascular depletion, resolved. In general, Mr. Kumar seems to be doing a lot better; however, the PEG tube seems to be in the subcutaneous tissue with some cellulitis. He has been started on IV antibiotics, PEG tube feedings have been withheld, and we will consult Surgery for evaluation for surgically placed tube. cc: Radu Zavala MD
--- NOTE | 2018-10-01 15:13 | GASTROENTEROLOGY PROGRESS NOTE ---
DATE: 10/01/2018 SUBJECTIVE: The patient is lying in bed. His at the bedside. The patient's primary care team called us for tenderness around the PEG tube site. I came in and examined the patient's PEG tube site. The patient was uncomfortable on pressing around the PEG tube site. I saw evidence of redness and mild induration around the external bumper. I did not see any kind of drainage around the PEG tube site. No pus was noted. For the time being, I have held the tube feeds and medications through the PEG tube. We will start him on broad-spectrum antibiotics and IV fluids given with D5 NS. We will obtain a CT scan abdomen and pelvis with IV contrast to confirm the position of PEG tube and to evaluate for any kind of cellulitis or early infection. The patient according to the report has been pulling on his PEG tube for the last few days despite having an abdominal binder in place. OBJECTIVE: Vital signs: Temperature 97.7, pulse rate of 60 with respiratory rate 16, blood pressure 120/77, saturating 98% room air. Weight: Body weight of 112 pounds 8 ounces. BMI 15.7 kg/m2. General Examination: The patient is thinly built, lying in bed, in no acute distress. HEENT: No pallor. No icterus. Neck: Supple. Abdomen has discomfort on the PEG tube site. Mild redness and induration around the external bumper. No rebound or guarding. Abdomen is soft otherwise. Extremities: No cyanosis clubbing. Neurological: Alert, awake, and answers questions. LABORATORIES: His sodium 135, potassium 4.4, chloride 99, bicarbonate 24, anion gap 12, BUN of 24, creatinine 1.1, glucose of 107, calcium 8.8, total bilirubin is 0.92, AST 15, ALT 8, alkaline phosphatase 55, total protein is 7.4, albumin of 3. IMPRESSION AND PLAN: 1. Functional dysphagia with extremely high aspiration risk per swallow evaluation. 2. Advanced Parkinson disease. 3. Malnutrition. 4. Acute kidney injury. 5. Generalized weakness and deconditioning. 6. Discomfort around the percutaneous endoscopic gastrostomy tube site. RECOMMENDATIONS: We will start patient on 1 dose of IV vancomycin and 1 dose of Zosyn. We will start on D5 normal saline at 70 mg per hour. We will check a CT scan of the abdomen and pelvis with intravenous contrast to confirm the PEG tube position and to evaluate any kind of cellulitis or any intra-abdominal infection. We will hold the tube feeds and medications for now. We will keep him on Pepcid, and we will convert it to IV for now. I have discussed the above plan of care with Dr. Zavala, the nursing staff, the patient, and the patient's family, and all questions have been answered. Please call us with any further questions. We will follow along. cc: MD Linda Rodriguez MD
--- NOTE | 2018-10-01 17:58 | Diag Imaging Result Doc PS360 ---
EXAM: KUB ABDOMEN INDICATION: confirm position of PEG tube position TECHNIQUE: Prior to the study, water-soluble iodinated contrast was injected via the patient's PEG tube. A single frontal radiograph of the abdomen and pelvis were then obtained. COMPARISON: 06/16/2017 FINDINGS: Although on a recent CT performed earlier today the PEG tube appears to be malpositioned, contrast is seen flowing normally into the stomach. No abnormal contrast extravasation is identified. There is no evidence of bowel obstruction or large volume free abdominal gas. There is contrast in the urinary bladder from earlier CT. IMPRESSION: Contrast seen flowing normally into the stomach from the PEG tube with no definite extravasation. Electronically signed by Jony Alex 10/01/2018 5:55 PM
[2018-10-02] MEDS: D5 NS 1,000 ML IV SCH ×2 (02:52→17:09)
[2018-10-02] MEDS: ZOSYN 3.375 GM in NS 50 ML IV SCH ×3 (05:56→17:06)
[2018-10-02] MEDS ORDERED: DIPRIVAN 1% ONE (06:55)
[2018-10-02] MEDS ORDERED: XYLOCAINE-MPF 2% ONE (06:56)
--- NOTE | 2018-10-02 09:47 | ENDOSCOPY OPERATIVE NOTE ---
[facility] ENDOSCOPY OPERATIVE NOTE , PATIENT: Larry Kumar ADMISSION DATE: 10/02/2018 MR#: [id number] : 1945 EGD PROCEDURE REPORT PROCEDURE DATE: 10/02/2018 SURGEON: Filipe Lewis MD STATUS: inpatient REFLOW OPERATOR: PREOPERATIVE DIAGNOSIS: The patient is a 72 yr old male here for an EGD due to abnormal CT of the GI tract and diagnostic procedure. PROCEDURE PERFORMED: EGD, diagnostic MEDICATIONS: Per Anesthesia TOPICAL ANESTHETIC: CONSENT: The patient understands the risks and benefits of the procedure and understands that these r isks include, but are not limited to: sedation, allergic reaction, infection, perforation and/or bleeding. Alternative means of evaluation and treatment include, among others: physical exam, x-rays, and/or surgical intervention. The patient elects to proceed with this endoscopic procedure. HISORY AND PHYSICAL: 10/02/2018 function. Hand hygiene and appropriate measures for infection prevention was taken. After the risks, benefits and alternatives of the procedure were thoroughly explained, Informed consent was verified, confirmed and timeout was successfully executed by the treatment team. The patient was anesthetized with topical anesthesia and the [id number] ([id number]) endoscope was introduced through the mouth and advanced to the second portion of the duoden um. Retroflexion of the stomach was not performed. The gastroscope was then slowly withdrawn and removed. ESOPHAGUS: The mucosa of the esophagus appeared normal. STOMACH: There was no internal bumper was not seen endoscopically. Site of prior PEG tube tract reve aled purulent drainage. PEG tube was pulled with by placing traction tube externally. There was purulent drainage externally with minimal bleeding. Bacitracin was applied and site was dressed. DUODENUM: The duodenal mucosa showed no abnormalities. SPECIMENS REMOVED: No ADVERSE EVENTS: There were no complications. POSTOPERATIVE DIAGNOSIS: The mucosa of the esophagus appeared normal RECOMMENDATIONS: Continue broad spectrum antibiotics and monitor for signs of peritonitis. Continue dry dressing changes daily Recommend total parenteral nutrition to allow tract to heal Findings and recommendations discussed with patient's family REPEAT EXAM: Filipe Lewis MD eSigned: Filipe Lewis MD 10/02/2018 9:47 AM cc: PATIENT NAME: Larry Kumar MR#: [id number]
[2018-10-02 11:53] LABS: MPV 10.6 FL (7.4-10.4)
[2018-10-02 11:57] LABS: INR 1.22; PROTIME 16.4 Seconds (11.0-16.0)
[2018-10-02] MEDS ORDERED: NS 250 ML ONE (12:45)
--- NOTE | 2018-10-02 13:55 | PROGRESS NOTE ---
DATE: 10/02/2018 SUBJECTIVE: This morning, Mr. Kumar refers to be feeling a little better. The daughter and the were at the bedside at the time of the encounter. Early on, I was called by the GI specialist stating that Mr. Kumar PEG tube seems to have been dislodged and that the tract had some purulent material so the PEG tube has been removed. OBJECTIVE: Current Vital Signs: Blood pressure is 120/66, pulse of 64, respirations are 21, temperature is 98.4 degrees. General Examination: Mr. Kumar is a 72-year-old, gentleman. He is in bed. He did not seem to be in any distress. HEENT: Mucosa is pink and moist. Anicteric. Acyanotic. Neck: Supple. Chest: Clear to auscultation. No crepitations. No rhonchi. Cardiovascular: Regular rate and rhythm. GI: Abdomen was soft. The PEG tube has been removed. There seems to be a tract. The site is remarkably erythematous and is tender on palpation. HYDRO OPERATOR: The patient is awake, alert. Continues to be very hypertonic everywhere. Laboratory Data: None for today. The patient's current medications have all been reviewed. However, the patient is NPO and PEG tube has been removed so he will not be getting any medications. ASSESSMENT: 1. Functional dysphagia with extremely high aspiration risk per swallow evaluation. 2. Status post percutaneous endoscopic gastrostomy tube placement. Unfortunately, the patient seems to have pulled on the percutaneous endoscopic gastrostomy tube and it had to be removed today because it also became infected. 3. Percutaneous endoscopic gastrostomy tube site cellulitis with purulence in the tract. The patient has been covered with broad-spectrum intravenous antibiotics. 4. Acute kidney injury on presentation, resolved. 5. Generalized weakness and deconditioning. Physical therapy is on board. 6. Hypotension secondary to intravascular depletion on presentation, resolved. 7. Advanced severe Parkinson's disease. The patient is on medications. Normally follows up with a neurologist in [place]. However, now, the patient does not have a way, at least enterally, to get his medications so we will consult nephrology over here to evaluate the patient. PLAN: In general, Mr. Kumar clinically is stable. However, he remains NPO because of extremely high aspiration risk. PEG tube had developed complication and had to be removed. Now, he does not have any way to get his medications. We are going to get a PICC line and start him on TPN for nutritional and hydration support. We will also get neurology to advice us on what medications can be used. I have explained the entire plan to Mr. Kumar, and the and the daughter who were at the bedside at the time of the encounter. cc: Radu Zavala MD
[2018-10-02] MEDS: PEPCID IV SCH ×2 (14:27→22:58)
[2018-10-02] MEDS ORDERED: HUMULIN R SUBQ SCH (14:45)
[2018-10-02] MEDS ORDERED: D10W 1,000 ML IV SCH (14:45)
--- NOTE | 2018-10-02 15:39 | CONSULTATION ---
DATE OF CONSULTATION: 10/02/2018 HISTORY OF PRESENT ILLNESS: Mr. Kumar is [id number] and there is reported to be longstanding parkinsonism, followed at [place]. He presented with dysphagia and required PEG tube placement. PEG tube has been dislodged. He cannot swallow safely. The admission record indicates prehospitalization Parkinson's management regimen was carbidopa/levodopa 25/100 four times daily with entacapone 200 mg 4 times daily. There is also listed carbidopa/levodopa/entacapone 25/100/200 once daily. I am not certain how he took his levodopa products. There is also reported rasagiline 1 mg daily. He had Nuplazid 34 mg at bedtime and also quetiapine 25 mg p.r.n. I do not know how long he has had Nuplazid on board and I do not know how often he has used quetiapine. He has donepezil 10 mg daily and glycopyrrolate 1 mg b.i.d. listed on the home medicines. By report, there was altered mental state with increased dysphagia and inability to take medications. He was admitted 10 days ago. Last imaging recorded here is noncontrast CT of the head 10/08/2014, reported unremarkable for acute change, but showing old thalamic lacunar lesions bilaterally. He has been afebrile here. Systolic blood pressures have ranged 80s-120s in the last several days. Recent lab shows sodium 135, BUN 24, blood sugar 107, nothing really remarkable on chemistry profile. Last thyroid report in this computer was 0.79 on 11/20/2015. Last B12 level reported this computer was 481 on 10/08/2014. PHYSICAL EXAMINATION: On exam now, he is awake and alert. He followed simple commands consistently. He did not follow commands requiring digit distinction, but he did pretty well with right/left distinction. Speech is very low volume, feeble, parkinsonian, difficult to understand. Language function appears intact on brief testing. He did not answer when I asked him to name this facility, to name the President, or to name the day of the week. I did not test his cognitive function further. Head and neck are unremarkable. There is no meningismus. There is diffuse rigidity in the limbs with minimal cogwheeling, but no definite tremor apparent right now. Tone is increased in the left arm more than the right. He did rapid alternating movements well with the hands. He did well on [id number] testing bilaterally. He reported equal pinprick appreciation over the hands. He was less able to distinguish pinprick appreciation around the ankles bilaterally than at the knees. I did not test his gait. There is paucity of facial expression. Facial appearance is symmetric. He has good horizontal eye movement and limited upgaze bilaterally. IMPRESSION/PLAN: 1. Parkinsonism. There may be previously diagnosed Parkinson disease treated with typical dopaminergic regimen. Unfortunately now, he will not be able to get these medicines due to his dysphagia and lack of access to GI route. Options would be Neupro patch and apomorphine injection. I do not know his baseline appearance and I am not sure how much benefit he has recently been receiving with the current dopaminergic regimen. I will check later to see if family is available to provide more history. 2. Apparent baseline dementia treated with donepezil. 3. Some clinical evidence of peripheral neuropathy. Thanks for asking Neurology to see Mr. Kumar. cc: MD LUTHER Wiseman III
[2018-10-02] MEDS ORDERED: TPN ELECTROLYTES 20 ML, MAGNESIUM SULFATE 5 MEQ, POTASSIUM CHLORIDE 20 MEQ, SODIUM PHOS... IV SCH ×8 (16:00)
[2018-10-02] MEDS: LIPOSYN 20% 250 ML IV SCH (17:08)
[2018-10-02] MEDS: SINEMET 25/100 PEG SCH ×3 (20:27→22:58)
[2018-10-02] MEDS: ARICEPT PEG SCH (20:27)
[2018-10-02] MEDS: ROBINUL PEG SCH (20:28)
[2018-10-02] MEDS: NON-FORMULARY MED PEG SCH (20:29)
[2018-10-02] MEDS: COMTAN PEG SCH ×2 (20:29→22:58)
[2018-10-02] MEDS: SODIUM CHLORIDE 0.9% INJ SCH (22:58)
[2018-10-03] MEDS: ZOSYN 3.375 GM in NS 50 ML IV SCH ×4 (02:23→20:45)
[2018-10-03] MEDS: D5 NS 1,000 ML IV SCH (06:09)
[2018-10-03] MEDS ORDERED: MISC. PHARMACY COMMUNICATION SCH ×2 (08:45→13:30)
[2018-10-03 08:47] LABS: AGAP 9; BUN 20 mg/dL (8-22); CALCIUM 8.2 mg/dL (8.8-10.2); CHLORIDE 107 mmol/L (98-107); CHOLESTEROL 90 mg/dL (0-200); COSMO 283; CREATININE 1.1 mg/dL (0.7-1.2); ESTIMATED GFR > 60; GLUCOSE 125 mg/dL (70-104); GOT 15 U/L (10-34); MAGNESIUM 2.2 mg/dL (1.5-2.7); PHOSPHORUS 2.9 mg/dL (2.7-4.5); SODIUM 140 mmol/L (136-145); TCO2 24 mmol/L (25-35); TRIGLYCERIDES 65 mg/dL (39-160)
[2018-10-03] MEDS ORDERED: EXELON 9.5MG/24HRS TD SCH (09:00)
[2018-10-03] MEDS ORDERED: NON-FORMULARY MED TOP SCH (09:00)
[2018-10-03 09:48] LABS: PREALBUMIN 7.1 mg/dL (20-40)
[2018-10-03] MEDS: ROBINUL PEG SCH (09:52)
[2018-10-03] MEDS: ARICEPT PEG SCH (09:52)
[2018-10-03] MEDS: SINEMET 25/100 PEG SCH (09:52)
[2018-10-03] MEDS: COMTAN PEG SCH (09:53)
[2018-10-03] MEDS: NON-FORMULARY MED PEG SCH (09:53)
--- NOTE | 2018-10-03 10:52 | PROGRESS NOTE ---
DATE: 10/03/2018 SUBJECTIVE: This morning, Mr. Kumar referred to be doing well. Still weak with a very weak voice but he seems to be progressively getting stronger. The was at the bedside at the time of the encounter. OBJECTIVE: Vital Signs: Blood pressure is 153/79, pulse of 59, respirations are 17, temperature is 97.6 degrees, the patient is saturating 97% on room air. General Examination: Mr. Kumar is a 72-year-old, male. He was in bed. No distress. HEENT: Mucosa is pink and moist. Anicteric. Acyanotic. Neck: Supple. Chest: Good air entry bilaterally. There were no crepitations, no rhonchi. Cardiovascular: Regular rate and rhythm. There were no murmurs, no rubs, no gallops. GI: Abdomen is soft. There is a binder over the abdomen. The previous PEG tube site still looks slightly erythematous. JOB COACHING: The patient is awake and alert. Laboratory Data: Chemistry is reviewed and it is completely normal. Patient's prealbumin is 7.1, which is remarkably low. ASSESSMENT: 1. Functional dysphagia with extremely high aspiration risk per swallow evaluation. 2. Status post percutaneous endoscopic gastrostomy tube placement. Unfortunately, this has developed some complication and it had to be removed. 3. Cellulitis with purulence in the tract of where the percutaneous endoscopic gastrostomy tube was. Patient is currently on intravenous antibiotics. 4. Acute kidney injury, resolved. 5. Generalized weakness and deconditioning. Physical therapy is on board. 6. Advanced Parkinson's disease. Patient was on multiple oral medications. However, we have not been able to utilize the enteral route so neurology was consulted. They have recommended rotigotine patch, which we have started this morning. We do not have apomorphine in the hospital, according to the pharmacist. 7. Protein calorie malnutrition. Patient is currently on total parenteral nutrition. cc: Radu Zavala MD [facility] HOSPITALShalini
[2018-10-03] MEDS: PEPCID IV SCH (11:02)
[2018-10-03] MEDS: TPN ELECTROLYTES 20 ML, MAGNESIUM SULFATE 5 MEQ, POTASSIUM CHLORIDE 20 MEQ, SODIUM PHOS... IV SCH ×8 (13:46)
[2018-10-03] MEDS: NON-FORMULARY MED TOP SCH (13:46)
--- NOTE | 2018-10-03 14:14 | PROGRESS NOTE ---
DATE: 10/03/2018 There is attentive family present now. Report is Parkinson's disease was diagnosed more than 20 years ago. He was treated with Sinemet and Stalevo and improved. Levodopa dose reached 800 mg daily. He has used ropinirole and pramipexole in the past, recently not using an agonist. He has not used apomorphine or Neupro patch in the past. He had tremor in each arm, worse on the left. He had DBS placed and was improved. Levodopa dose was reduced after that. He has not had significant tremor since DBS was placed. He has had some periods of significant dysphagia, usually less prominent in the morning after he has had a good night's sleep. Family confirms recent regimen was Stalevo 100 q.i.d. (7 a.m., 10 a.m., 1 p.m., 4 p.m.) , and additional regular Sinemet 25/100 when needed, usually a few doses per week. He has Azilect 1 mg daily. Nuplazid was added several months ago for hallucinations and has been helpful. He takes quetiapine 25 mg as needed, only a dose every month or two. Donepezil was added, currently 10 mg daily, and he has tolerated that. He has glycopyrrolate as needed for drooling. He has been taking citalopram chronically. OBJECTIVE: Mr. Kumar seems a little bit brighter today. He remains very dysphagic. Speech is feeble. Tone is increased throughout, a little bit more on the left. I did not find resting tremor today. We have very limited options for non enteral dopaminergic medication dosing. I do not find apomorphine or Neupro patch listed in the hospital formulary. If we can get either of those, we might be able to treat him well enough to improve swallowing briefly, and then hope to resume his oral medications. Family has been in touch with [facility] to see if DBS program might be modified to improve swallowing. In light of his age, longstanding parkinsonism, concurrent dementia, long-term prognosis is certainly not good, but I hope we can help him be comfortable. Thanks for asking Neurology to see Mr. Kumar. cc: MD LUTHER Wiseman III
[2018-10-03] MEDS: LIPOSYN 20% 250 ML IV SCH (16:08)
[2018-10-03] MEDS: APRESOLINE IV PRN (16:41)
[2018-10-04] MEDS: PEPCID IV SCH ×2 (00:24→12:19)
[2018-10-04] MEDS: ZOSYN 3.375 GM in NS 50 ML IV SCH ×4 (02:58→20:16)
[2018-10-04 06:59] LABS: AGAP 14; BUN 16 mg/dL (8-22); CALCIUM 8.8 mg/dL (8.8-10.2); CHLORIDE 106 mmol/L (98-107); COSMO 283; ESTIMATED GFR > 60; GLUCOSE 100 mg/dL (70-104); MAGNESIUM 2.3 mg/dL (1.5-2.7); PHOSPHORUS 3.3 mg/dL (2.7-4.5); SODIUM 141 mmol/L (136-145); TCO2 21 mmol/L (25-35)
--- NOTE | 2018-10-04 09:02 | PROGRESS NOTE ---
DATE: 10/04/2018 SUBJECTIVE: Today, Mr. Kumar refers to be okay. His voice sounds a little stronger than yesterday. No family member was at the bedside at the time of the encounter. OBJECTIVE: Vital Signs: Blood pressure is 157/84, pulse of 61, respirations are 18, temperature is 98.7 degrees, patient is saturating 98%. General Examination: Mr. Kumar is a 72-year-old, elderly, male. He is in bed. He looks moribund. HEENT: Mucosa is pink and moist. Anicteric. Acyanotic. Neck: Supple. Chest: Good air entry bilaterally. I did not hear any crepitations or rhonchi. Cardiovascular: Regular rate and rhythm. No murmurs, no rubs, no gallops. There is a generator pocket on the right anterior chest wall which is for the brain stimulator. Abdomen: Soft. There is a dressing over the PEG tube site. The site itself looks slightly erythematous but much better. Bowel sounds are present. Extremities: No pedal edema. MANAGER AUDIO: The patient is awake, alert. Followed basic commands. Voice continues to be extremely weak but better than yesterday. Labs: No CBC for this morning. Chemistry is reviewed and it is completely normal. ASSESSMENT: 1. Functional dysphagia with extremely high aspiration risk per swallow evaluation. The patient continues to be nothing per oral. 2. Status post percutaneous endoscopic gastrostomy tube placement with subsequent complication (site infection). Percutaneous endoscopic gastrostomy tube has been removed. The patient is currently on antimicrobials. 3. Acute kidney injury on presentation, resolved. 4. Advanced Parkinson's disease. The patient is currently on a Neupro patch until we are able to utilize the gastrointestinal tract. 5. Generalized weakness and deconditioning. Physical therapy is on board. 6. Protein calorie malnutrition. Patient is on total parenteral nutrition. PLAN: For now, we are going to continue with physical therapy, the Neupro patch, antimicrobial, and TPN. Hopefully, Mr. Kumar can gain some strength enough to be able to either swallow or attempt to get a surgically placed PEG tube at a later date. cc: Radu Zavala MD
[2018-10-04] MEDS: NON-FORMULARY MED TOP SCH (09:03)
[2018-10-04] MEDS: TPN ELECTROLYTES 20 ML, MAGNESIUM SULFATE 5 MEQ, POTASSIUM CHLORIDE 20 MEQ, SODIUM PHOS... IV SCH ×8 (15:24)
[2018-10-04] MEDS: LIPOSYN 20% 250 ML IV SCH (17:42)
[2018-10-04] MEDS ORDERED: CHLORASEPTIC SPRAY MT ONE (18:18)
--- NOTE | 2018-10-04 18:45 | GASTROENTEROLOGY PROGRESS NOTE ---
DATE: 10/04/2018 SUBJECTIVE: Resting in bed. His daughter and son-in-law were at bedside. The patient had dislodgement of the PEG tube, and it was removed. There was infection of the PEG tube site. He is on broad-spectrum antibiotics. He is on TPN. He is tolerating well. OBJECTIVE: Vital signs: Temperature 98.7 degrees, pulse 59, respiratory rate of 18, blood pressure of 177/91, saturating 99% on nasal cannula. Body weight 112 pounds 8 ounces. General: Thinly built, lying in bed, in no acute distress. HEENT: No pallor. No icterus. Neck: Supple. Abdomen: Surgical dressing at the PEG tube site. I removed. I saw pus at the PEG tube site. Erythema around the PEG tube site. Abdomen is otherwise soft. No guarding. No rebound. Extremities: No cyanosis or clubbing. Neurologic: He was awake and able to answer some questions. LABORATORY DATA: Sodium 140, potassium 4, chloride 106, bicarb 29, anion gap 14, BUN of 16, creatinine 1, glucose of 94, calcium 8.8, phosphorus 3.3, magnesium 2.3. Urine culture has been showing no growth on 09/20/2018. IMPRESSION: 1. Functional dysphagia with extremely high aspiration risk per swallow evaluation. 2. Advanced Parkinson's disease. 3. Dementia. 4. Generalized weakness and deconditioning. 5. Protein-calorie malnutrition. He is on TPN. 6. Acute kidney injury on admission, resolved. 7. Status post percutaneous endoscopic gastrostomy tube placement with subsequent dislodgement and removal and now complication with the PEG tube site infection. He is on broad-spectrum antibiotics. RECOMMENDATIONS: 1. We will continue on TPN. He will continue on Parkinson's medicines per Neurology team. He is on broad-spectrum antibiotics with Zosyn. I will send off wound culture from the PEG tube site, and we will adjust the medications accordingly. For the time being, I will add him on Vancomycin IV until the culture speciation is done. He will continue on famotidine for GI prophylaxis and continue TPN for malnutrition. 2. Above plan of care discussed with the patient and family at bedside. All questions answered. 3. Please call us with any further questions. cc: MD Jorge Graves MD Kathy J. Sparacino, MD
[2018-10-04] MEDS ORDERED: CHLORASEPTIC SPRAY MT PRN (18:54)
[2018-10-04] MEDS: VANCOMYCIN 1 GM/NS 1 GM/250 ML IVPB IV SCH (20:22)
[2018-10-05] MEDS: ZOSYN 3.375 GM in NS 50 ML IV SCH ×4 (01:01→22:55)
[2018-10-05] MEDS: PEPCID IV SCH ×3 (01:03→22:55)
[2018-10-05 06:13] LABS: AGAP 13; BUN 17 mg/dL (8-22); CALCIUM 8.6 mg/dL (8.8-10.2); CHLORIDE 104 mmol/L (98-107); COSMO 276; CREATININE 1.1 mg/dL (0.7-1.2); ESTIMATED GFR > 60; GLUCOSE 104 mg/dL (70-104); MAGNESIUM 2.3 mg/dL (1.5-2.7); PHOSPHORUS 3.7 mg/dL (2.7-4.5); POTASSIUM 4.2 mmol/L (3.5-5.1); SODIUM 137 mmol/L (136-145); TCO2 20 mmol/L (25-35)
[2018-10-05] MEDS: NON-FORMULARY MED TOP SCH (09:14)
[2018-10-05] MEDS: VANCOMYCIN 1 GM/NS 1 GM/250 ML IVPB IV SCH ×2 (09:15→23:36)
--- NOTE | 2018-10-05 10:17 | PROGRESS NOTE ---
DATE: 10/05/2018 SUBJECTIVE: Mr. Kumar is seen today in his hospital bed. There was no family member at the bedside. His attending nurse was there. No new complaints. OBJECTIVE: Vital signs: Blood pressure 134/82, pulse 60, respirations 15, and temperature 96.9 degrees. The patient was saturating 100% on room air. General: Mr. Kumar is a 72 years old elderly male. He is in bed in no distress. HEENT: Mucosa is pink and moist. Anicteric. Acyanotic. Neck: Supple. Chest: Clear to auscultation. Cardiovascular: Regular rate and rhythm. Abdomen: Soft. There is a dressing over the PEG tube site. Extremities: No pedal edema. BREWERY TECHNICIAN: Patient is awake, alert, and nonverbal today, but will follow some basic commands. LABORATORY DATA: Chemistry seems unremarkable. ASSESSMENT: 1. Functional dysphagia with extremely high aspiration risk for a swallow evaluation. Patient is NPO. 2. PEG tube site infection with cellulitis. Tube has been removed. Patient is on IV antimicrobial therapy. 3. Acute kidney injury resolved. 4. Generalized weakness and deconditioning. PT is on board. 5. Protein calorie malnutrition. We will continue with TPN. 6. Advanced Parkinson disease. Patient is currently on Neupro patch. Taper morphine is not available in the hospital. Mr. Kumar continues to be fairly stable. We will continue with the IV antibiotics for the PEG tube cellulitis, and will wait for complete resolution before another attempt is made. cc: Radu Zavala MD [facility] HOSPITALShalini
[2018-10-05 10:28] LABS: ALB/GLOB RATIO 0.6; ALBUMIN 2.8 g/dL (3.5-5.0); DIRECT BILIRUBIN 0.1 mg/dL (0.00-0.20); TOTAL BILIRUBIN 0.7 mg/dL (0.20-1.00); TOTAL PROTEIN 7.5 g/dL (6.3-8.3)
[2018-10-05] MEDS: SODIUM CHLORIDE 0.9% INJ SCH ×2 (11:53→22:55)
[2018-10-05 12:58] LABS: AGAP 14; BUN 16 mg/dL (8-22); CALCIUM 8.6 mg/dL (8.8-10.2); CHLORIDE 105 mmol/L (98-107); CHOLESTEROL 110 mg/dL (0-200); COSMO 279; ESTIMATED GFR > 60; GLUCOSE 109 mg/dL (70-104); MAGNESIUM 2.3 mg/dL (1.5-2.7); PHOSPHORUS 3.7 mg/dL (2.7-4.5); POTASSIUM 4.1 mmol/L (3.5-5.1); SODIUM 139 mmol/L (136-145); TCO2 20 mmol/L (25-35); TRIGLYCERIDES 71 mg/dL (39-160)
[2018-10-05 13:07] LABS: GOT 24 U/L (10-34)
[2018-10-05] MEDS: TPN ELECTROLYTES 20 ML, MAGNESIUM SULFATE 5 MEQ, POTASSIUM CHLORIDE 20 MEQ, SODIUM PHOS... IV SCH ×8 (13:10)
[2018-10-05] MEDS ORDERED: NON-FORMULARY MED TOP SCH (13:29)
--- NOTE | 2018-10-05 13:52 | PROGRESS NOTE ---
DATE: 10/05/2018 Mr. Kumar started Neupro patch 4 mg daily yesterday. He has tolerated that. Family is not present at the bedside now. There is report that family noted him to swallow a little bit last night and then he seemed strangled again. At the time of my visit, he is calm, less rigid, voice a little bit stronger. There is no chorea. There has not been clinically recognized hallucinatory behavior. IMPRESSION: Longstanding Parkinson's disease, recent profound dysphagia to the point he was not able to swallow his pills. We hope to improve parkinsonism symptomatically with Neupro patch, get him able to swallow and then get him back on his oral regimen. Since there is no evidence of dopaminergic side effects at the current dose, and since he is not receiving other dopaminergic medicines now, I will add one more 4 mg patch through the afternoon. If/when he is able to swallow well enough, we can carefully resume carbidopa/levodopa. Thanks for asking Neurology to see Mr. Kumar. cc: MD LUTHER Wiseman III
[2018-10-05] MEDS ORDERED: NON-FORMULARY MED TOP ONE (15:00)
[2018-10-05] MEDS: LIPOSYN 20% 250 ML IV SCH (15:53)
[2018-10-05] MEDS: SINEMET 25/100 PO SCH (23:00)
[2018-10-06] MEDS: ZOSYN 3.375 GM in NS 50 ML IV SCH ×4 (03:28→22:23)
[2018-10-06] MEDS: SINEMET 25/100 PO SCH ×5 (07:10→22:22)
[2018-10-06 08:15] LABS: AGAP 14; BUN 20 mg/dL (8-22); CHLORIDE 101 mmol/L (98-107); COSMO 272; CREATININE 1.1 mg/dL (0.7-1.2); ESTIMATED GFR > 60; GLUCOSE 88 mg/dL (70-104); MAGNESIUM 2.4 mg/dL (1.5-2.7); PHOSPHORUS 3.3 mg/dL (2.7-4.5); POTASSIUM 4.5 mmol/L (3.5-5.1); SODIUM 135 mmol/L (136-145); TCO2 20 mmol/L (25-35)
[2018-10-06] MEDS: VANCOMYCIN 1 GM/NS 1 GM/250 ML IVPB IV SCH ×2 (08:43→23:24)
[2018-10-06] MEDS: NON-FORMULARY MED TOP SCH (09:19)
[2018-10-06] MEDS: SODIUM CHLORIDE 0.9% INJ SCH ×2 (11:45→23:24)
[2018-10-06] MEDS: PEPCID IV SCH ×2 (11:45→23:24)
--- NOTE | 2018-10-06 12:05 | PROGRESS NOTE ---
DATE: 10/06/2018 SUBJECTIVE: No family member at the bedside of Mr. Kumar. No new complaints. OBJECTIVE: Vital signs: Blood pressure is 175/89, pulse is 59, respirations 18, temperature 97.8. General: Mr. Kumar is a 72-year-old gentleman. He is in bed. He does not seem to be in any distress. Mucosa is pink and moist. Anicteric and acyanotic. Neck is supple. Chest is clear. Cardiovascular: Regular rate and rhythm. Slightly bradycardic. Abdomen is soft. There is a dressing over the PEG tube site. SR. PRICING ANALYST: The patient is awake, alert. Voice is extremely weak. DIAGNOSTIC DATA: Chemistry has been reviewed and is unremarkable. The culture from the abdomen PEG tube site is growing gram-negative gustavo and gram-positive gustavo. ASSESSMENT: 1. Functional dysphagia with extreme high aspiration risk from swallow evaluation report. The patient continues to be n.p.o. 2. PEG tube site infection with cellulitis. Culture growing gram-negative gustavo and gram-positive cocci. The patient is on broad spectrum antimicrobial therapy. 3. Acute kidney injury on presentation, resolved. 4. Generalized weakness and deconditioning. Physical Therapy is onboard. 5. Protein calorie malnutrition. The patient is on TPN. 6. Advanced Parkinson disease. The patient is on Nepro patch. Neurology is onboard. PLAN: For now, we are going to continue with the current management. We might be able to go up on the patch to see if that will continue to improve his Parkinson's symptoms and let him swallow better and start his oral medications. We will follow with further recommendations from Neurology. cc: Radu Zavala MD
[2018-10-06] MEDS: TPN ELECTROLYTES 20 ML, MAGNESIUM SULFATE 5 MEQ, POTASSIUM CHLORIDE 20 MEQ, SODIUM PHOS... IV SCH ×8 (14:10)
[2018-10-06] MEDS: LIPOSYN 20% 250 ML IV SCH (16:50)
[2018-10-07] MEDS: ZOSYN 3.375 GM in NS 50 ML IV SCH (01:50)
[2018-10-07 07:27] LABS: AGAP 10; BUN 21 mg/dL (8-22); CALCIUM 8.5 mg/dL (8.8-10.2); CHLORIDE 102 mmol/L (98-107); COSMO 272; ESTIMATED GFR > 60; GLUCOSE 107 mg/dL (70-104); MAGNESIUM 2.3 mg/dL (1.5-2.7); PHOSPHORUS 3.5 mg/dL (2.7-4.5); POTASSIUM 4.1 mmol/L (3.5-5.1); SODIUM 134 mmol/L (136-145); TCO2 22 mmol/L (25-35)
[2018-10-07] MEDS: ROCEPHIN 1 GM in NS 50 ML IV SCH (09:01)
[2018-10-07] MEDS: NON-FORMULARY MED TOP SCH (09:02)
[2018-10-07] MEDS: VANCOMYCIN 1 GM/NS 1 GM/250 ML IVPB IV SCH ×2 (09:02→21:43)
[2018-10-07] MEDS: SINEMET 25/100 PO SCH ×4 (09:02→21:43)
[2018-10-07] MEDS: TPN ELECTROLYTES 20 ML, MAGNESIUM SULFATE 5 MEQ, POTASSIUM CHLORIDE 20 MEQ, SODIUM PHOS... IV SCH ×16 (10:42→12:36)
[2018-10-07] MEDS: PEPCID IV SCH ×2 (10:44→23:22)
--- NOTE | 2018-10-07 15:13 | PROGRESS NOTE ---
DATE: 10/07/2018 This morning Mr. Kumar remained stable, no new complaint. was at the bedside at the time of the encounter. OBJECTIVE: Current vitals, blood pressure is 173/90, pulse of 68, respiration 24, temperature 97.6 degrees.General: Mr. Kumar 72-year-old male he still in bed no distress. Mucosa is pink. Anicteric. Acyanotic. Neck: Supple. Chest: Good air entry bilateral. No crepitations, no rhonchi. Cardiovascular: Regular rate and rhythm. Abdomen: Soft. There is a dressing over the PEG tube site. The surrounding is minimally tender and erythematous. HHAS: Patient is awake, minimally verbal but he seems to understand. ASSESSMENT: 1. Functional dysphagia with extreme high aspiration risk from swallow evaluation report. Patient continues to be NPO. 2. Percutaneous endoscopic gastrostomy tube site infection with cellulitis. Culture is growing Klebsiella pneumoniae and enterococcal faecalis. Antibiotics have been narrowed down to ceftriaxone and vanc. 3. Generalized weakness and deconditioning. Physical therapy is on board. 4. Protein calorie malnutrition. Patient is on total parenteral nutrition. 5. Advanced Parkinson disease. Will continue with Nepro patch. Neurology is on board. 6. Hypertension. Will continue with p.r.n. hydralazine. We are going to use clonidine patch to help with the blood pressure control. cc: Radu Zavala MD
[2018-10-07] MEDS: LIPOSYN 20% 250 ML IV SCH (17:04)
[2018-10-08 06:35] LABS: AGAP 9; BUN 22 mg/dL (8-22); CALCIUM 8.5 mg/dL (8.8-10.2); CHLORIDE 104 mmol/L (98-107); COSMO 276; ESTIMATED GFR > 60; GLUCOSE 105 mg/dL (70-104); MAGNESIUM 2.4 mg/dL (1.5-2.7); PHOSPHORUS 3.6 mg/dL (2.7-4.5); POTASSIUM 4.1 mmol/L (3.5-5.1); SODIUM 136 mmol/L (136-145); TCO2 23 mmol/L (25-35)
[2018-10-08 06:46] LABS: PREALBUMIN 21.5 mg/dL (20-40)
[2018-10-08] MEDS: VANCOMYCIN 1 GM/NS 1 GM/250 ML IVPB IV SCH ×2 (08:01→20:19)
[2018-10-08] MEDS: NON-FORMULARY MED TOP SCH (08:02)
--- NOTE | 2018-10-08 09:21 | PROGRESS NOTE ---
DATE: 10/08/2018 LOCATION: Room 312. SUBJECTIVE: Mr. Kumar has tolerated Neupro 8 mg dose daily through the weekend. Unfortunately, his dysphagia has not improved to the point that he would be able to safely try to swallow pills. We can continue Neupro at this dose. I have called pharmacy to check on availability of apomorphine. Thank you for asking Neurology to see Mr. Kumar. cc: MD LUTHER Wiseman III
[2018-10-08] MEDS: SINEMET 25/100 PO SCH ×2 (10:05→18:27)
[2018-10-08] MEDS: ROCEPHIN 1 GM in NS 50 ML IV SCH (10:05)
[2018-10-08 12:04] LABS: PHOSPHORUS 3.5 mg/dL (2.7-4.5); PREALBUMIN 21.2 mg/dL (20-40)
[2018-10-08] MEDS: TPN ELECTROLYTES 20 ML, MAGNESIUM SULFATE 5 MEQ, POTASSIUM CHLORIDE 20 MEQ, SODIUM PHOS... IV SCH ×8 (12:35)
[2018-10-08] MEDS: PEPCID IV SCH (12:36)
[2018-10-08] MEDS: LIPOSYN 20% 250 ML IV SCH ×2 (12:38→18:28)
--- NOTE | 2018-10-08 16:22 | PROGRESS NOTE ---
DATE: 10/08/2018 SUBJECTIVE: Today, Mr. Kumar remains the same. No new changes. Dysphagia remains unchanged. OBJECTIVE: Vital Signs: Blood pressure is 116/73, pulse of 64, respirations 14, temperature 97.5 degrees. General: Mr. Kumar is a 72-year-old gentleman. He is in bed. No distress. HEENT: Mucosa is pink and moist. Anicteric. Acyanotic. Neck: Neck is supple. Chest: Clear to auscultation. Cardiovascular: Regular rate and rhythm. Abdomen: Soft. PEG tube area still exudating some mild purulence. No erythematous changes . Central Nervous System: The patient is awake, minimally verbal, can barely comprehend what he says; he mumbles. LABORATORY DATA: Chemistry has been reviewed, unremarkable. ASSESSMENT: 1. Functional dysphagia with extreme high aspiration risk. The patient is NPO. 2. PEG tube site infection with cellulitis with culture positive for Klebsiella pneumoniae and enterococcal faecalis. The patient is on antibiotics. 3. Generalized weakness and deconditioning. Physical therapy on board. 4. Advanced Parkinson disease. The patient continues to be on Nepro patch. Neurology is on board. I am told apomorphine is not here in the hospital. 5. Hypertension controlled. 6. Protein calorie malnutrition. Patient is on TPN. cc: Radu Zavala MD
[2018-10-09] MEDS: SINEMET 25/100 PO SCH ×4 (02:11→16:33)
[2018-10-09 07:48] LABS: AGAP 12; BUN 22 mg/dL (8-22); CALCIUM 9.2 mg/dL (8.8-10.2); CHLORIDE 103 mmol/L (98-107); COSMO 271; ESTIMATED GFR > 60; GLUCOSE 94 mg/dL (70-104); MAGNESIUM 2.3 mg/dL (1.5-2.7); PHOSPHORUS 3.3 mg/dL (2.7-4.5); POTASSIUM 4.6 mmol/L (3.5-5.1); SODIUM 134 mmol/L (136-145); TCO2 19 mmol/L (25-35)
--- NOTE | 2018-10-09 08:41 | PROGRESS NOTE ---
DATE: 10/09/2018 SUBJECTIVE: Mr. Kumar is awake and he seems alert. He was attentive at times. He followed simple commands. OBJECTIVE: His rigidity is less prominent than a few days ago. There is no resting tremor. Speech seems a little bit improved. Still, he is not able to swallow safely. PLAN: I do not have any new suggestion. I would continue Neupro patch 8 mg daily for now. Apparently, apomorphine is not going to be an option. We might ask for recommendation from his [facility] at [facility]. If there is option for tube placement, we can resume Sinemet or Stalevo by that route. Thanks for asking Neurology to see Mr. Kumar. cc: Narciso Napoles III, MD
[2018-10-09] MEDS: VANCOMYCIN 1 GM/NS 1 GM/250 ML IVPB IV SCH ×2 (09:07→21:27)
[2018-10-09] MEDS: NON-FORMULARY MED TOP SCH (09:17)
[2018-10-09] MEDS: ROCEPHIN 1 GM in NS 50 ML IV SCH (10:16)
[2018-10-09] MEDS: TPN ELECTROLYTES 20 ML, MAGNESIUM SULFATE 5 MEQ, POTASSIUM CHLORIDE 20 MEQ, SODIUM PHOS... IV SCH ×8 (10:21)
[2018-10-09] MEDS: SODIUM CHLORIDE 0.9% INJ SCH (10:33)
[2018-10-09] MEDS: PEPCID IV SCH ×2 (10:33)
--- NOTE | 2018-10-09 10:51 | PROVIDER PROGRESS NOTE ---
Progress Note SUBJECTIVE: No acute overnight events. Afebrile. Patient appears more alert than before. Denies abdominal pain. On TPN. at bedside. She believes that his neurologic status is slowly improving OBJECTIVE: Last Vital Signs Temp 97.8 F 10/09/18 04:26 Pulse 52 L 10/09/18 04:26 Resp 16 10/08/18 21:23 BP 157/72 10/09/18 04:26 Pulse Ox 100 10/09/18 04:26 Height 5 ft 11 in Weight 112 lb 8 oz GEN: awake, alert, NAD HEENT: anicteric, EOMI NECK: supple, no JVD CV: RRR, no murmurs PULM: CTAB anteriorly, no wheezing ABD: PEG tract site with improvement in erythema and induration, some purulent material at tract site, soft abdomen, NT/ND, BS present EXT: no cce NEURO: tracks with eyes, moving extremities spontaneously, rigidity improving LABS: 10/09/18 07:03 Sodium 134 L Potassium 4.6 Chloride 103 Carbon Dioxide 19 L BUN 22 Creatinine 1.0 ASSESSMENT AND PLAN: Mr. Larry Kumar is a 72-year-old gentleman with a past medical history of Parkinson disease requiring deep brain stimulator who was admitted here with hypernatremia, acute kidney injury, altered mental status in the setting of volume depletion from decreased PO intake. Speech evaluation here with MBS showed maxwell aspiration of thin liquids. PEG placement on 09/28 was complicated by displacement and abdominal wall infection requiring repeat EGD and PEG removal on 10/02. The patient has been on TPN and antibiotics to allow for PEG tract healing and treatment of infection, respectively. I am concerned that the patient will has repeat PEG displacement or abdominal wall ischemia given his thin abdominal wall. I recommend general surgery consultation for surgical G- tube placement. # Oropharyngeal dysphagia: 05/05 to Parkinson's: on TPN; will need repeat g-tube placement once PEG tract heals; recommend surgical consult # Abdominal wall infection: on antibiotics; improving; defer duration of antibiotic therapy to primary # Parkinson. improved neurologic exam; neurology following; apprec assistance # Protein calorie malnutrition. on TPN; appreciate Nutrition recs Findings and plan discussed with family and primary team. We will follow with you. Please call with any questions or concerns.
[2018-10-09] MEDS: LIPOSYN 20% 250 ML IV SCH ×2 (13:05→16:34)
--- NOTE | 2018-10-09 14:22 | PROGRESS NOTE ---
DATE: 10/09/2018 SUBJECTIVE: This morning Mr. Kumar remains stable and no new complaints. was at the bedside at the time of the encounter. OBJECTIVE: Vitals: Blood pressure is 159/78, pulse of 61, respiration is 19, temperature 99 degrees. General: Mr. Kumar 72-year-old gentleman he is in bed no distress. Mucosa is pink and moist. Anicteric, acyanotic. Neck: Supple. Chest: Good entry bilateral. There is no crepitation, no rhonchi. Cardiovascular: Regular rate and rhythm. Abdomen: Soft. There is a dressing over the little small PEG tube site with minimum purulence. No erythematous changes. SENIOR NET APPLICATION DEVELOPER: Patient is awake follows command. His voice seems slightly stronger than yesterday. LABORATORY DATA: Chemistry is reviewed, sodium is 134, rest of test is normal. ASSESSMENT: 1. Oropharyngeal dysphagia with extreme high aspiration risk, patient is NPO. 2. Percutaneous endoscopic gastrostomy tube site infection with cellulitis, culture positive for Klebsiella pneumoniae and enterococcal faecalis, patient continues to be on antimicrobial therapy (vancomycin and ceftriaxone). 3. Advanced Parkinson disease, patient used to be on the on 3 different types of p.o. medications however because he is NPO we started using Neupro patch. Neurology is on board and I have also reached out to his neurologist in [place]. 4. Hypertension controlled. 5. Protein calorie malnutrition. Patient is on total parenteral nutrition. So in general Mr. Kumar has been in hospital 17 days came in mainly because of generalized weakness and dysphagia. A swallow evaluation did show a severe oropharyngeal dysphagia and recommendation was to keep him NPO. Patient had a PEG tube put in and he was getting his medications and there was a plan for him to go to [facility]. Unfortunately Mr. Kumar pulled out his NG tube about 3 days after it was placed and the site became infected with some purulence. Culture has grown Klebsiella pneumoniae as well as enterococcal faecalis and patient has been on adequate antimicrobial therapy for the past 5 days. The main concern at this point is how to get his antiparkinson medications. We have started him on Neupro patch and patient has been seen by Neurology over here. I have also been able to reach out to Dr. Lundberg who is the patient's neurologist in [place]. I have updated him about Mr. Kumar' current condition and he also recommends to get the patient Parcopa which is a medication that is easily dispersed under the tongue and the patient does not have to swallow. I have communicated this to the hospital pharmacy and the pharmacist will order this medication. Hopefully we can get it tomorrow and start Mr. Kumar on this new recommended medication. We have also consulted surgery upon recommendation from GI to evaluate for surgically placed PEG tube since the one that GI did because Mr. Kumar has a very thin abdominal wall it appears that it would not be able to be secured if GI puts it in. Mr. Kumar disposition will depend on the rest of the hospital course. We have consulted social work for LTAC placement, however if he gets any stronger with the new medication and he can go to rehab that will also be okay. cc: Radu Zavala MD MTDD
[2018-10-10] MEDS: PEPCID IV SCH ×3 (00:08→23:58)
[2018-10-10] MEDS: SINEMET 25/100 PO SCH (00:08)
[2018-10-10] MEDS: SODIUM CHLORIDE 0.9% INJ SCH ×2 (00:08→23:58)
[2018-10-10 05:41] LABS: BASO# 0.09 X1000 (0.0-0.2); BASO% 1.6 % (0.0-0.8); EOS# 0.38 X1000 (0.0-0.7); EOS% 6.6 % (0.0-10.0); HEMATOCRIT 39.1 % (42.0-52.0); HEMOGLOBIN 13.1 g/dL (14.0-18.0); IMM GRAN# 0.07 X1000 (0.0-0.04); IMM GRAN% 1.2 % (0.0-0.5); LYMPH# 1.59 X1000 (1.2-3.4); LYMPH% 27.7 % (20.5-51.1); MCH 29.7 PG (27-31); MCHC 33.5 g/dL (33-37); MCV 88.7 FL (81-99); MONO# 0.58 X1000 (0.11-0.59); MONO% 10.1 % (1.7-9.3); MPV 10.7 FL (7.4-10.4); NEUT# 3.03 X1000 (1.4-6.5); NEUT% 52.8 % (42.2-75.2); PLT 212 X1000 (130-400); RBC 4.41 XMIL (4.7-6.1); RDW 12.4 % (11.5-14.5); WBC 5.74 X1000 (4.8-10.8)
[2018-10-10 06:05] LABS: AGAP 8; BUN 21 mg/dL (8-22); CALCIUM 8.4 mg/dL (8.8-10.2); CHLORIDE 103 mmol/L (98-107); COSMO 272; CREATININE 0.8 mg/dL (0.7-1.2); ESTIMATED GFR > 60; GLUCOSE 111 mg/dL (70-104); PHOSPHORUS 3.3 mg/dL (2.7-4.5); POTASSIUM 3.5 mmol/L (3.5-5.1); SODIUM 134 mmol/L (136-145); TCO2 23 mmol/L (25-35)
[2018-10-10] MEDS: ROCEPHIN 1 GM in NS 50 ML IV SCH (09:27)
[2018-10-10] MEDS: VANCOMYCIN 1 GM/NS 1 GM/250 ML IVPB IV SCH ×2 (09:27→19:42)
[2018-10-10] MEDS: TPN ELECTROLYTES 20 ML, MAGNESIUM SULFATE 5 MEQ, POTASSIUM CHLORIDE 20 MEQ, SODIUM PHOS... IV SCH ×16 (09:28→17:26)
--- NOTE | 2018-10-10 09:30 | GENERAL SURGERY CONSULTATION ---
DATE: 10/10/2018 REQUESTING PHYSICIAN: Dr. Zavala. REASON FOR CONSULTATION: Consult is concerning surgical feeding tube placement. HISTORY OF PRESENT ILLNESS: A 72-year-old gentleman who initially presented on 09/25/2018 for dysphagia. He has longstanding Parkinson's disease and essentially developed dysphagia. Since then, he has had a swallow study confirming it. He apparently had a PEG tube placed and it was somehow dislodged and subsequently removed. He has had an issue with a wound infection at the PEG site. He has grown klebsiella and enterococcus from this wound. They have started him on TPN for nutrition but he is requiring sublingual medicine for his Parkinson's disorder. I was asked to weigh an opinion about placement of a surgical feeding tube. Patient is nonverbal at this time. There is no family at the bedside to give me any further information. I reviewed the history from reviewing his extensive medical chart from this admission. PAST MEDICAL HISTORY: Includes Parkinson's, hypertension, BPH, dysphagia. PAST SURGICAL HISTORY: Includes TURP, deep brain stimulator, AAA repair, previous PEG tube placement. FAMILY HISTORY: Unable to obtain secondary to patient's nonverbal status. SOCIAL HISTORY: Reviewed other notes. He is a remote smoker. MEDICATIONS: Current MAR reviewed. Of note, he is on TPN, Rocephin, and vancomycin. ALLERGIES: None. REVIEW OF SYSTEMS: Unable to obtain secondary to patient's mental status and nonverbal status. PHYSICAL EXAMINATION: Vital Signs: The patient is currently afebrile. His vital signs are stable. General Examination: Elderly, cachectic, chronically ill-appearing gentleman. HEENT: Normocephalic, atraumatic. Pupils equal, round, and reactive to light. Mucous membranes moist. Oropharynx benign. Neck: Supple. Trachea midline. Cardiovascular: Regular rate and rhythm. Lungs: Grossly clear. Abdomen: Thin. Wound noted at previous PEG site with some fibrinous exudative drainage, some mild erythema right at the PEG site itself. No apparent abdominal tenderness. Extremities: No swelling. Neurologic: Nonverbal. He does not seem to respond to his name to me. Skin: Wound as noted above. Vascular: All extremities perfused. LABORATORY DATA: This morning, white blood cell count is 5, hematocrit 39, platelet count 212,000. His prealbumin 2 days ago was 21.2. Imaging with CT scan reviewed from admission. ASSESSMENT AND PLAN: A 72-year-old with Parkinson's and multiple medical comorbidities, now needing definitive enteral access. 1. Multiple medical comorbidities including Parkinson's, at this time being managed by the hospitalist service. Neurology is seeing the patient. He apparently is going to be getting what looks like a sublingual medication for his Parkinson's. We will defer that management to the hospitalist and the neurologist. 2. Need for enteral access. At this point, there is no family at the bedside and the patient is nonverbal. We need to discuss extensively with the family as to the wishes and what they wan. May want to have the wound cleaned up a little bit until we plan an open procedure. His abdominal AAA is pretty close to his abdominal wall so we would probably have to just do an upper midline incision but we will discuss with family as to their wishes and make further recommendations after discussing with them. cc: Quinn Herrera MD
[2018-10-10] MEDS: NON-FORMULARY MED SL SCH ×4 (10:03→22:21)
[2018-10-10] MEDS: NON-FORMULARY MED TOP SCH (10:04)
--- NOTE | 2018-10-10 10:54 | PROVIDER PROGRESS NOTE ---
Progress Note SUBJECTIVE: No acute overnight events. Afebrile. No N/V/F, tolerating TPN. He is able to follow simple commands but nonverbal. No family at bedside. OBJECTIVE: Last Vital Signs Temp 98.3 F 10/10/18 07:11 Pulse 52 L 10/10/18 07:11 Resp 17 10/10/18 07:11 BP 117/66 10/10/18 07:11 Pulse Ox 100 10/10/18 07:11 Height 5 ft 11 in Weight 112 lb 8 oz GEN: awake, alert, NAD HEENT: anicteric, EOMI NECK: supple, no JVD CV: RRR, no murmurs PULM: CTAB anteriorly, no wheezing ABD: PEG tract site with dressing c/d/i, soft abdomen, NT/ND, BS present EXT: no cce NEURO: tracks with eyes, moving extremities spontaneously, rigidity minimal, follows simple commands LABS: 10/10/18 10/10/18 05:20 05:20 WBC 5.74 Hgb 13.1 L Plt Count 212 Sodium 134 L Potassium 3.5 D Chloride 103 Carbon Dioxide 23 L BUN 21 Creatinine 0.8 Glucose 111 H ASSESSMENT AND PLAN: Mr. Larry Kumar is a 72-year-old gentleman with a past medical history of Parkinson disease requiring deep brain stimulator who was admitted here with hypernatremia, acute kidney injury, altered mental status in the setting of volume depletion from decreased PO intake. Speech evaluation here with MBS showed maxwell aspiration of thin liquids. PEG placement on 09/28 was complicated by displacement and abdominal wall infection requiring repeat EGD and PEG removal on 10/02. The patient has been on TPN and antibiotics to allow for PEG tract healing and treatment of infection, respectively. I am concerned attempting repeat endoscopic g-tube given thin abdominal wall. Surgery is following for possible surgical g-tube placement. Awaiting discussion with family to reassess GOC. # Oropharyngeal dysphagia: 05/05 to Parkinson's: on TPN; surgery evaluating for possible surgical g-tube # Abdominal wall infection: on antibiotics; improving; defer duration of antibiotic therapy to primary team # Parkinson. improved neurologic exam; neurology following; apprec assistance # Protein calorie malnutrition. on TPN; appreciate Nutrition recs We will follow with you. Please call with any questions or concerns.
[2018-10-10] MEDS: TPN ELECTROLYTES 20 ML, MAGNESIUM SULFATE 5 MEQ, POTASSIUM CHLORIDE 25 MEQ, SODIUM PHOS... IV SCH ×8 (11:41)
[2018-10-10] MEDS: LIPOSYN 20% 250 ML IV SCH (16:19)
--- NOTE | 2018-10-10 18:16 | PROGRESS NOTE ---
DATE: 10/10/2017 Mr. Kumar looks about the same clinically. He moves all limbs. Rigidity today is minimal. There is no cogwheeling or resting tremor. He continues very dysarthric. Dysphagia has not significantly improved. PLAN: If there is not suggestion from [facility] to change the DBS program, and if we cannot provide apomorphine, the only option would be to try to find a way for enteral access and resume dopaminergic medicines. Thanks for asking Neurology to see Mr. Kumar. cc: MD LUTHER Wiseman III
--- NOTE | 2018-10-10 21:02 | PROGRESS NOTE ---
DATE: 10/10/2018 INTERVAL HISTORY: The patient remains nonverbal. He does open and close eyes on command, but that is about it. No acute events overnight. REVIEW OF SYSTEMS: Unable to obtain secondary to patient mental status. LABORATORY DATA: WBC 5.7, hemoglobin 13.1, hematocrit 39.1, platelets 212,000. Sodium 134, potassium 3.5, bicarbonate 23, BUN 21, creatinine 0.8, glucose 111. OBJECTIVE: Vital signs: T-max 98.9 degrees, pulse 52, respirations 19, blood pressure 117/66, O2 saturation 100% on room air.General: No acute distress. Chronically ill- appearing. HEENT: Normocephalic, atraumatic. Slightly dry mucous membranes. No cervical adenopathy. Cardiovascular: Regular rate and rhythm. No murmurs noted. Pulmonary: Clear to auscultation bilaterally. No wheezing, rales or rhonchi. Abdomen soft, nontender, nondistended. Bowel sounds positive. PEG site bandaged. Bandage removed. Site with minimal surrounding erythema, largely resolved. Scant purulent drainage still, though. Extremities: Peripheral pulses decreased but intact. No clubbing or cyanosis. Neurologic: Exam limited by patient mental status. Does open and close eyes on command. Pupils equal, round and reactive to light. No facial asymmetry. Mild spasticity of all extremities. No obvious focal deficits. Psychiatric: Patient awake, appears to be alert. Follows commands with eyes as above, but does not do anything else on command. Unable to assess orientation. Skin: Abdominal wound as above. Otherwise no new rashes or lesions identified. ASSESSMENT AND PLAN: 1. Oropharyngeal dysphagia. The patient remains NPO, will likely be NPO for the remainder of his life. Currently tolerating total parenteral nutrition. Previously had a percutaneous endoscopic gastrostomy tube but this became dislodged and then infected. It has since been removed. Surgery contacted about possibly placing a new feeding tube surgically, but the patient is relatively high risk. They desire to have more extensive discussion with family prior to making a decision on this. 2. Percutaneous endoscopic gastrostomy site infection. Cellulitis essentially resolved, but still some scant purulent drainage from the site. Culture growing Klebsiella and Enterococcus faecalis. Continue on vancomycin and Rocephin for now. 3. Advanced Parkinson disease. Ability to give p.o. somewhat limiting, but after discussion with Neurology here and at [place], he has been placed on a Neupro patch as well as sublingual carbidopa/levodopa. Sublingual tabs were just started this morning, so we may not have seen much of an effect yet, but he still appeared to be quite spastic this morning. We will see what the sublingual tabs do and monitor. If/when we are able to get enteral access of some kind, we will restart p.o. medications. 4. Hypertension. Reasonable control so far. 5. Malnutrition. Patient on total parenteral nutrition and tolerating thus far. [facility]PITALShalini
[2018-10-11] MEDS: VANCOMYCIN 1 GM/NS 1 GM/250 ML IVPB IV SCH ×2 (07:57→21:03)
[2018-10-11 08:08] LABS: AGAP 9; BUN 21 mg/dL (8-22); CHLORIDE 105 mmol/L (98-107); COSMO 275; CREATININE 0.9 mg/dL (0.7-1.2); ESTIMATED GFR > 60; GLUCOSE 101 mg/dL (70-104); MAGNESIUM 2.2 mg/dL (1.5-2.7); PHOSPHORUS 3.2 mg/dL (2.7-4.5); SODIUM 136 mmol/L (136-145); TCO2 22 mmol/L (25-35)
[2018-10-11] MEDS: NON-FORMULARY MED TOP SCH (10:50)
--- NOTE | 2018-10-11 11:54 | PROGRESS NOTE ---
DATE: 10/11/2018 Mr. Kumar appeared to be sleeping as I approached the bedside. With moderate stimulation, he waked and was briefly attentive. He followed some simple commands. Rigidity in the arms is a little bit more prominent today than yesterday. There is not prominent cogwheeling. I did not notice resting tremor. He spoke some words to me, and speech may be a little bit better than before, but not remarkably so. He has rotigotine 8 mg daily by patch, and Parcopa sublingual carbidopa levodopa 25/100 q.i.d. was started yesterday. This is orally disintegrating tablet, which is still swallowed, and risk for aspiration is present. If he is able to tolerate ODT, we might advance the dose, and hope eventually to see him swallowing well enough to use tablets again. No new suggestions. Thanks for asking Neurology to see Mr. Kumar. cc: MD LUTHER Wiseman III
[2018-10-11] MEDS: ROCEPHIN 1 GM in NS 50 ML IV SCH (12:03)
[2018-10-11] MEDS: PEPCID IV SCH ×2 (12:03→22:16)
[2018-10-11] MEDS: NON-FORMULARY MED SL SCH ×4 (12:23→21:04)
[2018-10-11] MEDS: TPN ELECTROLYTES 20 ML, MAGNESIUM SULFATE 5 MEQ, POTASSIUM CHLORIDE 25 MEQ, SODIUM PHOS... IV SCH ×8 (12:23)
[2018-10-11] MEDS: LIPOSYN 20% 250 ML IV SCH (15:20)
--- NOTE | 2018-10-11 16:54 | GENERAL SURGERY PROGRESS NOTE ---
DATE: 10/11/2018 Discussed with the daughter yesterday about open feeding tube. I had a lengthy discussion about pros and cons and at this point the family wants to talk about it and then get back with me. In the meantime, we will let the wound try to heal, try to get some of the infection and fibropurulent drainage improved before we commit him to a surgery. cc: Quinn Herrera MD
--- NOTE | 2018-10-11 17:25 | GASTROENTEROLOGY PROGRESS NOTE ---
DATE: 10/11/2018 PHYSICIAN: Dr. Guzman. PRIMARY CARE DOCTOR: Linda Godfrey MD SUBJECTIVE: Patient resting in bed. Patient has been on TPN. He does open and close his eyes on commands. I examined the PEG tube site. It did have some pus drainage. I also spoke with the nurse, and we discussed changing the dressing every day and apply bacitracin ointment every day. Vitals: Temperature of 98.1 degrees, pulse rate 50, respiratory rate 18, blood pressure 159/86 saturating 92% on room air. Weight: Body weight of 112 pounds 8 ounces, BMI 15.7 kg/m2. General Appearance: Patient is thinly built, lying in bed, in no acute distress. HEENT: No pallor. No icterus. Neck is supple. Abdomen: There is a PEG tube dressing in place. I removed the dressing and saw there was evidence of some erythema around the PEG tube site, and there was evidence of some pus at the PEG tube opening. We discussed with the nursing staff to clean it with Betadine and apply bacitracin ointment and to change dressing every day. No guarding or rebound. Extremities: No cyanosis or clubbing. Neurological: He was awake and opens his eyes on commands. Does not answer any questions. DIAGNOSTIC STUDIES: Hemoglobin 13.1, hematocrit 39, white count of 5.74, platelet count of 212,000. Sodium 132, potassium 4, chloride 105, bicarbonate 22, anion gap 9, BUN of 21, creatinine 0.9, glucose of 101, calcium is 9, phosphorus 3.2, magnesium 2.2. Culture is showing Klebsiella pneumoniae, Enterococcus faecalis group D. They are sensitive to vancomycin and Zosyn. IMPRESSION AND PLAN: 1. Oropharyngeal dysphagia secondary to Parkinson disease. He is on TPN. 2. Abdominal wall infection. He is on antibiotics. This is being managed by the primary care team. 3. The patient is being evaluated by Dr. Herrera for possible surgical G-tube to help meet his calorie requirements and give him his Parkinson medications. 4. Protein-calorie malnutrition. He is on TPN. 5. Parkinson disease. This is being followed by the primary care team and Neurology team. 6. History of deep brain stimulator for Parkinson disease. Aware. 7. History of a percutaneous endoscopic gastrostomy tube placement and subsequent dislodgement, requiring percutaneous endoscopic gastrostomy tube removal and complicated with percutaneous endoscopic gastrostomy tube site infection. He is on broad-spectrum antibiotics. 8. Gastrointestinal prophylaxis with Pepcid twice daily. 9. He is also on vancomycin and ceftriaxone per primary team. The above plans were discussed with the patient and the nursing staff at bedside. All questions were answered. Please call us with any further questions. cc: MD Linda Rodriguez MD [facility]
--- NOTE | 2018-10-11 18:25 | PROGRESS NOTE ---
DATE: 10/11/2018 INTERVAL HISTORY: The patient is a little more interactive today, but remains nonverbal. Still little movement of extremities. No acute events overnight. REVIEW OF SYSTEMS: Unable to obtain secondary to patient mental status. LABORATORY DATA: Basic metabolic panel unremarkable aside from bicarbonate 22, glucose 108. VITAL SIGNS: T-max 98.4 degrees, pulse 52, respirations 20, blood pressure 142/89, O2 saturation 98% on room air. OBJECTIVE: General: No acute distress. Chronically ill appearing. Vital signs as above. HEENT: Normocephalic, atraumatic. Slightly dry tongue. No cervical adenopathy. Cardiovascular: Slightly bradycardic but regular. No murmurs noted. Pulmonary: Clear to auscultation bilaterally. No wheezing, rales, or rhonchi. Abdomen: Soft, nontender, nondistended. Bowel sounds positive. PICC site remains bandaged. Under bandage, no further erythema and minimal drainage. Extremities: Peripheral pulses decreased but intact. No clubbing or cyanosis. Neurologic exam limited by patient status. The patient continues to open and close eyes on command, but does not follow any other commands. Pupils equal, round and reactive to light. No facial asymmetry. Mild spasticity of all extremities. Appears somewhat improved. Psychiatric: Patient awake, alert, minimal command following as above. Skin: No new rashes or lesions identified. ASSESSMENT AND PLAN: 1. Oropharyngeal dysphagia. Patient remains NPO and likely to remain NPO indefinitely. Tolerating total parenteral nutrition. Awaiting Surgery discussion with family regarding possible percutaneous endoscopic gastrostomy tube placement. 2. Percutaneous endoscopic gastrostomy site infection. Cellulitis resolved, drainage decreasing. Culture growing Klebsiella and enterococcus. Continue vancomycin and Rocephin for now. 3. Advanced Parkinson disease. Ability to give p.o. currently limited. Currently with patch and with sublingual tab, which does present some risk of aspiration but also appears to have improved his spasticity somewhat. Hopefully will be able to get some kind of enteral access in the near future and resume p.o. medications. 4. Hypertension. Good control so far. 5. Malnutrition, on total parenteral nutrition and tolerating thus far. 6. Disposition: One family member at bedside today. Did discuss briefly goals of care and current situation. The family member at the bedside did not seem to be willing to make any final decisions right now, but she will discuss further with other family members and with Surgery. My impression is that they will likely want everything done for the immediate future.
[2018-10-11] MEDS: SODIUM CHLORIDE 0.9% INJ SCH ×2 (22:10→22:15)
[2018-10-12] MEDS: VANCOMYCIN 1 GM/NS 1 GM/250 ML IVPB IV SCH ×2 (08:04→21:46)
[2018-10-12 08:28] LABS: BASO# 0.11 X1000 (0.0-0.2); BASO% 1.7 % (0.0-0.8); EOS# 0.36 X1000 (0.0-0.7); EOS% 5.5 % (0.0-10.0); HEMOGLOBIN 14.8 g/dL (14.0-18.0); IMM GRAN# 0.07 X1000 (0.0-0.04); IMM GRAN% 1.1 % (0.0-0.5); LYMPH# 1.78 X1000 (1.2-3.4); MCH 29.5 PG (27-31); MCHC 33.6 g/dL (33-37); MCV 87.8 FL (81-99); MONO# 0.61 X1000 (0.11-0.59); MONO% 9.2 % (1.7-9.3); MPV 11.3 FL (7.4-10.4); NEUT# 3.67 X1000 (1.4-6.5); NEUT% 55.5 % (42.2-75.2); PLT 167 X1000 (130-400); RBC 5.01 XMIL (4.7-6.1); RDW 12.7 % (11.5-14.5)
[2018-10-12] MEDS: NON-FORMULARY MED SL SCH ×4 (08:28→21:45)
[2018-10-12] MEDS: APRESOLINE IV PRN (08:28)
[2018-10-12 08:39] LABS: AGAP 13; BUN 23 mg/dL (8-22); CALCIUM 9.4 mg/dL (8.8-10.2); CHLORIDE 102 mmol/L (98-107); COSMO 280; ESTIMATED GFR > 60; GLUCOSE 77 mg/dL (70-104); POTASSIUM 4.4 mmol/L (3.5-5.1); SODIUM 139 mmol/L (136-145); TCO2 24 mmol/L (25-35)
[2018-10-12 08:45] LABS: MAGNESIUM 2.1 mg/dL (1.5-2.7); PHOSPHORUS 3.4 mg/dL (2.7-4.5)
[2018-10-12 08:46] LABS: BANDS 3 % (0-1); EOS 1 % (1-10); LYMPHS 23 % (21-51); MONO 4 % (1-9); SEGS 69 % (42-75)
[2018-10-12] MEDS: ROCEPHIN 1 GM in NS 50 ML IV SCH (10:36)
[2018-10-12] MEDS: PEPCID IV SCH ×2 (10:59→23:45)
[2018-10-12] MEDS: LIPOSYN 20% 250 ML IV SCH ×2 (11:27→16:55)
[2018-10-12] MEDS: TPN ELECTROLYTES 20 ML, MAGNESIUM SULFATE 5 MEQ, POTASSIUM CHLORIDE 25 MEQ, SODIUM PHOS... IV SCH ×8 (11:27)
[2018-10-12] MEDS: NON-FORMULARY MED TOP SCH (11:57)
[2018-10-12] MEDS: BACITRACIN OINTMENT TOP SCH (16:52)
--- NOTE | 2018-10-12 20:11 | PROGRESS NOTE ---
DATE: 10/12/2018 Mr. Kumar seems a little bit brighter today. He seems more attentive. He followed some simple commands. He is not able to close his mouth voluntarily. Oropharynx is dry. He used his arms purposefully to my command, touching his nose with each arm. Rigidity is less prominent right now. There is no resting tremor. He seems to be able to swallow the carbidopa/levodopa ODT without significant aspiration apparent. We might increase that dose, or reduce the dose interval, to try to get closer to his baseline levodopa dose. I would continue the Neupro patch. Eventually, enteral route may be accessible again and we can get back to his prior doses. Thanks for asking Neurology to see Mr. Kumar. cc: MD LUTHER Wiseman III
[2018-10-12] MEDS: SODIUM CHLORIDE 0.9% INJ SCH (23:45)
--- NOTE | 2018-10-13 03:57 | PROGRESS NOTE ---
DATE: 10/12/2018 INTERVAL HISTORY: The patient is sitting up in bed today. Remains nonverbal, but a little more awake, alert, and a little more movement of his upper extremities. No acute events overnight. Discussed with family, and they said he was largely nonverbal even before this episode. REVIEW OF SYSTEMS: Unable to obtain secondary to patient's mental status. LABORATORY: CBC unremarkable. BMP unremarkable aside from sodium 139, bicarb 24, BUN 23, creatinine 1.0, glucose 73 to 113. VITALS: T-max 98.6 degrees, pulse 67, respirations 17, blood pressure 107/64, and O2 saturation 99% on room air. PHYSICAL EXAMINATION: General: No acute distress. Chronically ill appearing, sitting up in a chair. Vitals: As above. HEENT: Normocephalic, atraumatic. Less dry mucous membranes. No cervical adenopathy. Cardiovascular: Regular rate and rhythm. No murmurs noted. Pulmonary: Clear to auscultation bilaterally. No wheezing, rales, or rhonchi. Abdomen: Soft, nontender, and nondistended. Bowel sounds positive. PEG site remains bandaged. Minimal fiber purulent drainage persists. No erythema noted. Extremities: Peripheral pulses decreased but intact. No clubbing or cyanosis. Neurologic: Limited by patient's mental state status and chronic weakness. More awake, opening and closing eyes on command, intermittently squeezing with his hands on command. Slightly more spontaneous, although rarely purposeful movement of his upper extremities. No cogwheeling. Less overall spasticity. Psychiatric: Patient awake, alert, and somewhat more cooperative. Remains nonverbal. Skin: No new rashes or lesions identified. ASSESSMENT/PLAN: 1. Oropharyngeal dysphagia. Patient remains NPO and likely to remain so indefinitely. Tolerating TPN currently. Awaiting final decision between family and surgery regarding possible PEG placement. If the patient does not get PEG, then may end up going to LTAC with TPN. If patient does get a feeding tube, then family will likely decide to take him home with tube feeds. 2. PEG site infection. Cellulitis resolved. Still some drainage, but uncertain if this represents ongoing infection or not. Culture grew Klebsiella Enterococcus. He has been on vancomycin and Rocephin. This is approximately day 9. We will likely plan on completing a 2- week course, but if he receives PEG tube, then can likely transition to antibiotics per PEG. 3. Advanced Parkinson's disease. Currently with limited ability to give him anything by mouth. Currently, patch and sublingual tab which does seem to have improved him somewhat over the last couple of days. He is still nonverbal, but this may be baseline. Less spastic, and no cogwheeling at this point. Continue those medications and monitor. 4. Hypertension. Good control so far. 5. Severe protein calorie malnutrition on TPN. Tolerating thus far. BMI 15.7, and with global muscle wasting on exam. 6. Disposition. Awaiting decision versus PEG versus TPN as above.
[2018-10-13 07:59] LABS: AGAP 11; BUN 24 mg/dL (8-22); CALCIUM 9.4 mg/dL (8.8-10.2); CHLORIDE 105 mmol/L (98-107); CHOLESTEROL 103 mg/dL (0-200); COSMO 281; CREATININE 0.9 mg/dL (0.7-1.2); ESTIMATED GFR > 60; GLUCOSE 94 mg/dL (70-104); MAGNESIUM 2.2 mg/dL (1.5-2.7); PHOSPHORUS 3.5 mg/dL (2.7-4.5); POTASSIUM 4.1 mmol/L (3.5-5.1); PREALBUMIN 25.2 mg/dL (20-40); SODIUM 139 mmol/L (136-145); TCO2 23 mmol/L (25-35); TRIGLYCERIDES 99 mg/dL (39-160)
[2018-10-13] MEDS: NON-FORMULARY MED TOP SCH (08:19)
[2018-10-13] MEDS: LIPOSYN 20% 250 ML IV SCH ×2 (08:19→16:44)
[2018-10-13] MEDS: VANCOMYCIN 1 GM/NS 1 GM/250 ML IVPB IV SCH ×2 (08:19→19:47)
[2018-10-13] MEDS: NON-FORMULARY MED SL SCH ×4 (08:21→20:18)
[2018-10-13] MEDS: BACITRACIN OINTMENT TOP SCH (08:22)
[2018-10-13] MEDS: ROCEPHIN 1 GM in NS 50 ML IV SCH (08:22)
[2018-10-13] MEDS: TPN ELECTROLYTES 20 ML, MAGNESIUM SULFATE 5 MEQ, POTASSIUM CHLORIDE 25 MEQ, SODIUM PHOS... IV SCH ×8 (11:54)
[2018-10-13] MEDS: PEPCID IV SCH ×2 (12:44→22:14)
[2018-10-13] MEDS: ATIVAN IV PRN (15:12)
--- NOTE | 2018-10-13 20:44 | PROGRESS NOTE ---
DATE: 10/13/2018 INTERVAL HISTORY: Patient is significantly more mobile. Actually, speaking somewhat, although very difficult to understand and largely incoherent. Extensive discussion with patient's son-in- law about current therapy, therapeutic options, and their desires. They continue to want him to be DNR, but all conservative measures pursued. Final decision regarding possible feeding tube placement pending. Discussed repeating a swallow study early next week given the improvement in mobility and mental status. Initially, planned on increasing patient's oral dissolving tablets, carbidopa/levodopa, and had spoken to Pharmacy about getting that ordered, which would take a couple of days. After discussion with family, they were strongly opposed to that as they had discussed the patient's care with his usual neurologist in [place], and while they were unable to recall the details of that discussion, they ended up being quite opposed to increasing his dose. They reported that he had significant hallucinations with higher doses in the past and were concerned about a recurrence of that. They initially wanted patches discontinued as well, but after discussion about his improvement over the last couple of days, they were amenable to leaving that in place, at least pending his repeat swallow study. REVIEW OF SYSTEMS: Unable to obtain secondary to patient's mental status. LABORATORY: Basic metabolic panel, essentially unremarkable aside from bicarbonate 23, BUN 24, creatinine 0.8, glucose 75. OBJECTIVE: vitals: Temperature max 98.7 degrees, pulse 63, respirations 24, blood pressure 140/69, O2 saturation 100% on room air. General: No acute distress. Chronically ill appearing, sitting up in bed. HEENT: Normocephalic, atraumatic. Temporal wasting stable. No cervical adenopathy. Cardiovascular: Regular rate and rhythm. No murmurs noted. Pulmonary: Clear to auscultation bilaterally. No wheezing, rales, or rhonchi. Abdomen: Soft, nontender, nondistended. Bowel sounds positive. PEG site bandaged. Extremities: Peripheral pulses decreased, but intact. No clubbing or cyanosis. Neurologic: Somewhat limited by patient's mental status, but much more freely moving his arms. Did squeeze with hands on command and attempted to respond verbally, although his speech was largely incoherent. No cogwheeling. Significant global weakness. Psychiatric: Patient awake, alert, somewhat verbal, although largely not understandable. More cooperative. Skin: No new rashes or lesions identified. ASSESSMENT AND PLAN: 1. Oropharyngeal dysphagia. Patient remains NPO. Suspect he is likely to remain so indefinitely, but he has had significant improvement in spasticity and level at activity, as well as some improvement in mental status over the last couple of days. We will see if we can repeat his swallow study on Monday, to re-evaluate his ability to take by mouth. Ongoing discussions between family and Surgery regarding possibility of a PEG placement, but due to the fear of complications because of the position of his aorta, they are leaning toward not proceeding with PEG tube placement. If they do decide not to pursue PEG placement, then will likely discharge to LTAC early next week on TPN, unless his repeat swallow study is markedly improved. 2. Peripherally inserted central catheter site infection. Cellulitis resolved. Still some drainage, but likely not ongoing infection at this point. Culture grew Klebsiella enterococcus. He has been on vancomycin and Rocephin. Today is day 8 of an anticipated 2- week course. 3. Advanced Parkinson disease. Currently with limited ability to give him anything by mouth. Did very poorly on initial swallow study. Has been on patch and sublingual oral dissolving tablets, which he seems to be tolerating thus far. Has actually had some significant improvement in his overall spasticity, ability to spontaneously move. He has been pretty much completely nonverbal until today. Still does not make much sense, but does appear to be somewhat improved on this regimen. Considered increasing dose of oral dissolving tablets, but the family is strongly opposed as above. 4. Hypertension. Reasonable control so far. 5. Severe protein-calorie malnutrition. Patient on TPN and tolerating that so far. Body mass index of 15.7, with global muscle wasting on exam. 6. Disposition. Awaiting final decision versus PEG versus long-term TPN. Repeat swallow study on Monday as well to give him every chance we can to go back to taking p.o., which would likely be the best option. Anticipate discharge to LTAC versus home early next week. LUTHER
[2018-10-13] MEDS: SODIUM CHLORIDE 0.9% INJ SCH (22:14)
[2018-10-14] MEDS: ATIVAN IV PRN ×2 (07:12→18:15)
[2018-10-14] MEDS ORDERED: NS 2,000 ML ONE (07:26)
[2018-10-14] MEDS: VANCOMYCIN 1 GM/NS 1 GM/250 ML IVPB IV SCH ×2 (07:47→20:51)
[2018-10-14] MEDS: ROCEPHIN 1 GM in NS 50 ML IV SCH (07:48)
[2018-10-14] MEDS: LIPOSYN 20% 250 ML IV SCH ×2 (07:52→17:10)
[2018-10-14] MEDS: NON-FORMULARY MED TOP SCH (08:15)
[2018-10-14] MEDS: BACITRACIN OINTMENT TOP SCH (08:15)
[2018-10-14] MEDS: NON-FORMULARY MED SL SCH ×4 (08:15→20:51)
[2018-10-14 12:05] LABS: AGAP 17; ALBUMIN 3.6 g/dL (3.5-5.0); ALKALINE PHOSPHATASE 64 U/L (32-122); BUN 22 mg/dL (8-22); CALCIUM 9.4 mg/dL (8.8-10.2); CHLORIDE 103 mmol/L (98-107); COSMO 284; CREATININE 0.8 mg/dL (0.7-1.2); ESTIMATED GFR > 60; GLUCOSE 80 mg/dL (70-104); GOT 33 U/L (10-34); GPT 10 U/L (10-44); MAGNESIUM 2.1 mg/dL (1.5-2.7); PHOSPHORUS 3.2 mg/dL (2.7-4.5); POTASSIUM 4.1 mmol/L (3.5-5.1); SODIUM 141 mmol/L (136-145); TCO2 21 mmol/L (25-35); TOTAL BILIRUBIN 0.54 mg/dL (0.20-1.00); TOTAL PROTEIN 7.1 g/dL (6.3-8.3)
[2018-10-14] MEDS: PEPCID IV SCH ×2 (12:05→22:59)
[2018-10-14] MEDS: TPN ELECTROLYTES 20 ML, MAGNESIUM SULFATE 5 MEQ, POTASSIUM CHLORIDE 25 MEQ, SODIUM PHOS... IV SCH ×8 (12:17)
--- NOTE | 2018-10-14 16:04 | PROGRESS NOTE ---
DATE: 10/14/2018 INTERVAL HISTORY: The patient is largely stable today. Mobility remains improved. Still occasionally responsive verbally although remains quite difficult to understand. No acute events overnight. REVIEW OF SYSTEMS: Unable to obtain secondary to patient's mental status. LABS: Sodium 141, potassium 4.1, BUN 22, creatinine 0.8. VITALS: T-max 98.7 degrees, pulse 61, respirations 19, blood pressure 143/99, O2 saturation 99% on room air. PHYSICAL EXAMINATION: General: No acute distress. Vitals: As above. HEENT: Normocephalic, atraumatic. Temporal wasting, stable. Cardiovascular: Regular rate and rhythm. No murmurs noted. Pulmonary: Clear to auscultation bilaterally. No wheezing, rales, or rhonchi. Abdomen: Soft, nontender, nondistended. Bowel sounds positive. PEG site remains bandaged. Extremities: Peripheral pulses decreased but intact. No clubbing or cyanosis. Neurologic: Limited by patient's mental status but moves arms fairly freely. Generally squeezes hands on commands. Occasionally attempts to respond verbally, but speech remains largely incoherent. No cogwheeling. Significant global weakness unchanged. Psychiatric: Patient asleep but arousable. Remains somewhat verbal but not really understandable. Skin: No new rashes or lesions identified. ASSESSMENT AND PLAN: 1. Oropharyngeal dysphagia. Patient remains n.p.o. Strong possibility that he will remain so indefinitely, but given significant improvement in spasticity, activity level, mental status, we plan on re-evaluating tomorrow. Still awaiting final decision from family regarding possibility of PEG placement, but due to fear of complications because of the position of his aorta, they are leaning towards not proceeding with PEG tube placement. If he remains unable to swallow safely and they do not pursue PEG, then we will likely discharge to LTAC early next week on TPN. 2. PICC site infection. Cellulitis resolved. Still some drainage but may just be fibrous at this point. Culture grew Klebsiella. Has been on vancomycin and Rocephin. Today is day 9 of an anticipated 2 week course. 3. Advanced Parkinson disease. Limited ability to give him p.o. Did very poorly on initial swallow study. Has been on patch and sublingual oral dissolving tablets, which he seems to be tolerating. As above has had some significant improvement in overall spasticity and ability to move. Monitor closely. 4. Hypertension. Reasonable control so far. 5. Severe protein calorie malnutrition. Patient on TPN, tolerating thus far. BMI 15.7 with global muscle wasting on exam. 6. Disposition. Awaiting final decision on PEG versus long-term TPN but will likely be TPN. Repeat swallow study tomorrow to give him 1 more chance to be able to take nutrition by mouth. If he is still doing poorly with swallow study, then will likely discharge to LTAC early next week when bed is available.
[2018-10-14] MEDS: SODIUM CHLORIDE 0.9% INJ SCH (22:59)
[2018-10-15 08:18] LABS: AGAP 13; BUN 23 mg/dL (8-22); CALCIUM 8.7 mg/dL (8.8-10.2); CHLORIDE 101 mmol/L (98-107); CHOLESTEROL 121 mg/dL (0-200); COSMO 275; CREATININE 0.9 mg/dL (0.7-1.2); ESTIMATED GFR > 60; GLUCOSE 89 mg/dL (70-104); GOT 35 U/L (10-34); MAGNESIUM 2.2 mg/dL (1.5-2.7); PHOSPHORUS 3.9 mg/dL (2.7-4.5); POTASSIUM 4.9 mmol/L (3.5-5.1); PREALBUMIN 27.2 mg/dL (20-40); SODIUM 136 mmol/L (136-145); TCO2 22 mmol/L (25-35); TRIGLYCERIDES 125 mg/dL (39-160)
[2018-10-15] MEDS ORDERED: NON-FORMULARY MED SL SCH (09:00)
--- NOTE | 2018-10-15 09:45 | Diag Imaging Result Doc PS360 ---
LAYLA SWALLOW W/VIDEO SPEECH THER - 10/15/2018 INDICATION: improved mental status/rigidity. re-assess swallow TECHNIQUE: Total fluoroscopy time was 12 seconds. 83 images were obtained. Images COMPARISON: 09/24/2018 FINDINGS: The patient was not able to drink thin liquids through a straw. A syringe was used. There was very poor excursion of the epiglottis and no significant closure of the larynx. There is significant aspiration as a result. IMPRESSION: Severe aspiration of thin liquids with poor closure of the epiglottis. Electronically signed by Taye Hoyt 10/15/2018 9:43 AM
[2018-10-15] MEDS: VANCOMYCIN 1 GM/NS 1 GM/250 ML IVPB IV SCH ×2 (11:01→19:54)
[2018-10-15] MEDS: ROCEPHIN 1 GM in NS 50 ML IV SCH (11:04)
[2018-10-15] MEDS: BACITRACIN OINTMENT TOP SCH (11:05)
[2018-10-15] MEDS: ATIVAN IV PRN (11:05)
[2018-10-15] MEDS: NON-FORMULARY MED SL SCH ×4 (11:05→23:15)
[2018-10-15] MEDS: NON-FORMULARY MED TOP SCH (11:05)
[2018-10-15] MEDS: LIPOSYN 20% 250 ML IV SCH (11:05)
[2018-10-15] MEDS: PEPCID IV SCH (13:37)
[2018-10-15] MEDS: TPN ELECTROLYTES 20 ML, MAGNESIUM SULFATE 5 MEQ, POTASSIUM CHLORIDE 25 MEQ, SODIUM PHOS... IV SCH ×8 (13:37)
--- NOTE | 2018-10-15 15:23 | GASTROENTEROLOGY PROGRESS NOTE ---
DATE: 10/15/2018 SUBJECTIVE: Patient is resting in bed. Patient has been on TPN. I examined the PEG tube site with the nursing staff. The erythema around the PEG tube site has improved. The amount of pus at the PEG tube site also has reduced. OBJECTIVE: Vital signs: Temperature of 98.7 degrees, pulse rate of 48, respiratory rate 18, blood pressure 144/109, saturating 97% on room air. Body weight of 112 pounds 8 ounces, BMI 15.7 kg/m2. General Appearance: Thinly built, lying in bed, in no acute distress. HEENT: No pallor. No icterus. Neck: Supple. Abdomen: Soft, nondistended. No guarding. PEG tube dressing in place. I removed the PEG tube dressing and the erythema around the PEG tube site has improved. There is a very small amount of pus noted at the PEG tube opening. No guarding. Extremities: No cyanosis, clubbing. Neurologic: He was nonverbal. He has Parkinson disease. LABS: Sodium 136, potassium 4.9, chloride 101, bicarb 22, anion gap 13, BUN of 23, creatinine 0.9, glucose of 89, calcium 8.7, phosphorus 3.9, magnesium 2.2. AST 35. Triglyceride is 125, cholesterol is 121. Speech modified swallow showed severe aspiration of thin liquids with poor closure of the epiglottis suggesting ongoing aspiration. IMPRESSION AND PLAN: 1. Oropharyngeal dysphagia secondary to Parkinson disease. He had a PEG tube placed which got dislodged and was pulled out and this is complicated with PEG tube site infection. He is on board spectrum antibiotics. He is on TPN. 2. Malnutrition. Continue TPN. 3. Advanced Parkinson disease. Being managed by the primary care team. 4. Hypertension. Per the primary care team. 5. Gastrointestinal prophylaxis. PPIs. 6. The patient is likely getting discharged to LTAC on TPN which he will need until his PEG tube site heals and at that time we can try to put in the new PEG tube at the same site. He is also being followed by Dr. Herrera but the plans for open G tube have been on hold. 7. The above plan was discussed with the patient and nurse at bedside and all questions answered. Please call us with any further questions. cc: MD Linda Rodriguez MD
--- NOTE | 2018-10-15 16:52 | PROGRESS NOTE ---
DATE: 10/15/2018 INTERVAL HISTORY: Patient is essentially the same. Mobility remains improved. Not verbally responsive to me this morning, but reportedly was with family. No acute events overnight. REVIEW OF SYSTEMS: Unable to obtain secondary to patient's mental status. LABORATORIES: Sodium 136, potassium 4.9, bicarbonate 22, BUN 23, creatinine 0.9. VITALS: Temperature maximum 98.7 degrees, pulse 48, respirations 16, blood pressure 117/65, O2 saturation 99% on room air. PHYSICAL EXAMINATION: General: No acute distress. Cachectic. Vitals: As above. HEENT: Normocephalic, atraumatic. Temporal wasting unchanged. Cardiovascular: Slightly bradycardic but regular. No murmurs noted. Pulmonary: Clear to auscultation bilaterally. No wheezing, rales, or rhonchi. Abdomen: Soft, nontender, nondistended. Bowel sounds positive. PEG site bandaged. Extremities: Peripheral pulses decreased but present. No clubbing or cyanosis. Neurologic: Limited by patient's mental status but moves arms freely, squeezes hands, and moves eyes on command. No verbal response to me today. Psychiatric: Patient awake alert, nonverbal today, but does follow some limited commands. Skin: No new rashes or lesions identified. ASSESSMENT AND PLAN: 1. Oropharyngeal dysphagia. Patient remains n.p.o. Repeated swallow study today, given improvement in mobility and some verbalization, but he again did very poorly with immediate and maxwell aspiration. PEG has been discussed, but due to fear of complications because of the position of his aorta, family is leaning toward not proceeding with PEG tube placement. Our plan currently is for extended course of TPN. They are discussing placement options with Social Work. Anticipate discharge once placement can be found. 2. Peripherally inserted central catheter site infection with cellulitis, resolved. Still some slight drainage, but may be just fibrous at this point. Culture grew out Klebsiella and Enterococcus faecalis. On vancomycin and Rocephin. Today is day 10 of anticipated 14 days. 3. Advanced Parkinson disease. Unable to give him any significant p.o. Did very poorly on both initial and repeat swallow study. He has been on patch and sublingual oral dissolving tablets, which he seems to be tolerating with some improvement in overall spasticity and ability to move at least his upper extremities. Prognosis guarded to poor. Monitor. 4. Hypertension. Reasonable control so far. Monitor. 5. Severe protein-calorie malnutrition. Patient on TPN, tolerating thus far. BMI 15.7 with global muscle wasting on exam. DISPOSITION: Anticipate discharge to facility of some kind once arrangements are made.
[2018-10-16] MEDS: PEPCID IV SCH ×2 (00:21→14:04)
[2018-10-16] MEDS: SODIUM CHLORIDE 0.9% INJ SCH (00:21)
[2018-10-16] MEDS: ATIVAN IV PRN ×3 (00:21→17:37)
[2018-10-16 08:15] LABS: AGAP 10; BUN 22 mg/dL (8-22); CALCIUM 9.6 mg/dL (8.8-10.2); CHLORIDE 104 mmol/L (98-107); COSMO 282; CREATININE 0.9 mg/dL (0.7-1.2); ESTIMATED GFR > 60; GLUCOSE 89 mg/dL (70-104); MAGNESIUM 2.1 mg/dL (1.5-2.7); PHOSPHORUS 3.6 mg/dL (2.7-4.5); POTASSIUM 4.6 mmol/L (3.5-5.1); SODIUM 140 mmol/L (136-145); TCO2 26 mmol/L (25-35)
[2018-10-16] MEDS: VANCOMYCIN 1 GM/NS 1 GM/250 ML IVPB IV SCH ×2 (08:40→20:02)
[2018-10-16] MEDS: LIPOSYN 20% 250 ML IV SCH (08:41)
[2018-10-16] MEDS: BACITRACIN OINTMENT TOP SCH (08:42)
[2018-10-16] MEDS: ROCEPHIN 1 GM in NS 50 ML IV SCH (08:42)
[2018-10-16] MEDS: NON-FORMULARY MED TOP SCH (08:43)
[2018-10-16] MEDS: NON-FORMULARY MED SL SCH ×3 (08:43→23:00)
--- NOTE | 2018-10-16 12:30 | PROGRESS NOTE ---
DATE: 10/16/2018 Mr. Kumar is awake, alert, sometimes attentive. He seems to be moving a little bit more spontaneously and limb tone is improved compared to admission. There is not cogwheeling today. There is no tremor. Still, he is not able to swallow. I do not have any new suggestion from Neurology standpoint. cc: Narciso Napoles III, MD MTDD
[2018-10-16] MEDS: TPN ELECTROLYTES 20 ML, MAGNESIUM SULFATE 5 MEQ, POTASSIUM CHLORIDE 25 MEQ, SODIUM PHOS... IV SCH ×8 (14:05)
[2018-10-16] MEDS ORDERED: HALDOL IM PRN (17:20)
--- NOTE | 2018-10-16 18:13 | PROGRESS NOTE ---
DATE: 10/16/2018 INTERVAL HISTORY: No acute events overnight. His pulse has been in the 50s and 60s. There are no new labs on him. SUBJECTIVE: He is a nonverbal, confused, currently pulling out on his diaper. No family is currently at bedside. Vital Signs: Temperature 97.4 degrees, pulse 63, respiratory rate 16, blood pressure 128/61, saturating 95% on room air. PHYSICAL EXAMINATION: General: He appears anxious and has erythematous, plethoric face. Nonverbal. Oral cavity is dry. Lungs: Air entry bilaterally equal. No wheeze, rhonchi or crackles. Cardiovascular: S1, S2 normal. No murmur, rub, or gallop. He is severely cachectic. Abdomen: Soft. I opened the dressing. The PEG tube wound site has mucopurulent discharge which is not coming out despite pressing. LABORATORY DATA: His BMP is unremarkable. Microbiology, no other data. ASSESSMENT AND PLAN: 1. Oropharyngeal dysphagia due to advanced Parkinson disease. He had failed repeated swallow study. Continue total parenteral nutrition. 2. PEG tube site infection by Klebsiella and Enterococcus after he pulled out his PEG tube, continue intravenous vancomycin, intravenous ceftriaxone for a total of 14 days. His discharge has significant decreased. Discussion with family is pending about future PEG tube placement either endoscopically or through open surgery. Today is day 11 of antibiotics. 3. Advanced Parkinson disease. Continue levodopa-carbidopa sublingually as well as patch of Rotigotine. Neurology on board. 4. Continue famotidine for GI prophylaxis. TPN for nutrition. DISPOSITION: The patient remains inside the hospital. The palliative care team was consulted yesterday. I am going to hold discussion with the family about long-term goals of care. Considering his advanced dementia, Parkinson disease, it is unlikely that his swallowing function would return to normal and PEG tube may not prolong his survival. I would bring up hospice options to the family. Plan of care discussed with the nursing team. cc: MD LUTHER Beckwith
[2018-10-17] MEDS: PEPCID IV SCH ×3 (02:16→23:37)
[2018-10-17] MEDS: SODIUM CHLORIDE 0.9% INJ SCH ×2 (02:16→23:37)
[2018-10-17] MEDS: ATIVAN IV PRN (03:39)
[2018-10-17 07:21] LABS: AGAP 12; BUN 22 mg/dL (8-22); CALCIUM 9.4 mg/dL (8.8-10.2); CHLORIDE 104 mmol/L (98-107); COSMO 282; ESTIMATED GFR > 60; GLUCOSE 83 mg/dL (70-104); MAGNESIUM 2.1 mg/dL (1.5-2.7); PHOSPHORUS 3.5 mg/dL (2.7-4.5); POTASSIUM 4.1 mmol/L (3.5-5.1); SODIUM 140 mmol/L (136-145); TCO2 24 mmol/L (25-35)
[2018-10-17] MEDS: LIPOSYN 20% 250 ML IV SCH (08:25)
[2018-10-17] MEDS: ROCEPHIN 1 GM in NS 50 ML IV SCH (08:25)
[2018-10-17] MEDS: NON-FORMULARY MED SL SCH ×4 (08:26→23:38)
[2018-10-17] MEDS: VANCOMYCIN 1 GM/NS 1 GM/250 ML IVPB IV SCH (09:38)
[2018-10-17] MEDS: BACITRACIN OINTMENT TOP SCH (09:39)
[2018-10-17] MEDS: NON-FORMULARY MED TOP SCH (09:39)
--- NOTE | 2018-10-17 11:10 | Diag Imaging Result Doc PS360 ---
EXAM: CT ABD/PELVIS W/IV CONT ONLY INDICATION: evaluate for residual abdominal wall infection TECHNIQUE: This exam was performed using automated exposure control, adjustment of mA or kV according to patient size, and/or use of iterative reconstruction technique. COMPARISON: 10/01/2018 FINDINGS: Fibrotic changes at the lung bases are unchanged. The gallbladder, liver, spleen, pancreas, and adrenal glands are essentially unremarkable. There is stable chronic dilation of the right renal collecting system and associated right renal atrophy. There are a few small simple appearing renal cysts bilaterally. The urinary bladder is grossly unremarkable. The aortoiliac stent graft is patent. There has been interval removal of the patient's PEG tube. The edema at the ventral abdominal wall of the left upper outer quadrant that was around the PEG tube has improved significantly. There is only mild residual edema that remains. There is no subcutaneous gas appreciated. The GI tract is essentially stable, otherwise. There is no evidence of bowel obstruction. There is no evidence of free abdominal gas. IMPRESSION: 1.Interval removal of the patient's PEG tube and significant improvement of the surrounding left upper quadrant body wall edema. 2.Other incidental/nonacute findings detailed above that are essentially stable. Electronically signed by Jony Alex 10/17/2018 11:07 AM
[2018-10-17] MEDS: TPN ELECTROLYTES 20 ML, MAGNESIUM SULFATE 5 MEQ, POTASSIUM CHLORIDE 25 MEQ, SODIUM PHOS... IV SCH ×8 (12:20)
--- NOTE | 2018-10-17 15:56 | PROGRESS NOTE ---
DATE: 10/17/2018 INTERVAL HISTORY: No acute events overnight. The patient's is at bedside. The patient appears agitated and appears to be hallucinating and appears confused, is nonverbal. Currently not in any distress. VITALS: Temperature 98.6 degrees, pulse of 67, respiratory 20, blood pressure 140/83. PHYSICAL EXAMINATION: General: Not in acute distress. Mouth: Oral cavity is dry. Lungs: Air entry bilaterally equal. No wheeze, rhonchi, or crackles. Cardiovascular: S1, S2 normal. No murmur, rub, or gallop. He appears severely cachectic. Abdomen: Soft. He does have about 1 x 1 cm PEG tube site wound, which had some mucoid discharge without any pus. LAB DATA: Suggestive of acceptable range of BMP. MICROBIOLOGY: No microbiological data. IMAGING: No imaging. Modified barium swallow 2 days ago had severe aspiration. ASSESSMENT AND PLAN: 1. Oropharyngeal dysphagia due to advance Parkinson disease and worsening dementia, failing modified barium swallow, repeated. Continue total parenteral nutrition. I will hold discussion with the family about starting palliative care, and if they do not want palliative care, then I would let General Surgery or Gastroenterology team know to see if another percutaneous endoscopic gastrostomy tube could be an option. 2. Percutaneous endoscopic gastrostomy tube site infection by Klebsiella and Enterococcus. The patient had initial percutaneous endoscopic gastrostomy tube placement in the last week of September, which he pulled out and he developed abdominal wall cellulitis because of that. So, his percutaneous endoscopic gastrostomy tube had to be taken out endoscopically. He is on intravenous vancomycin, intravenous ceftriaxone. Today is day [address] scan suggests improvement in cellulitis. My plan is to stop antibiotics in the next 48 hours. 3. Advanced Parkinson disease. Continue sublingual levodopa/carbidopa, as well as Rotigotine patch. Neurology on board. He has dementia and oropharyngeal dysphagia likely because of Parkinson disease. He also has deep brain stimulation, which is being followed up at [facility] [place]. 4. Others. Continue famotidine for gastrointestinal prophylaxis, total parenteral nutrition for nutrition. 5. Disposition: I am going to hold meeting with patient's and daughter and update them about the patient's clinical condition and answer all of their questions. I am going to address Palliative Care and explain to them about the patient's progressive dementia. ADDENDUM: I had a discussion with his family about his condition, long filler cigar roller machine prognosis. Family wanted to go ahead and get a PEG tube placed again. I will convey this to the stomach doctor. Code status is DNR 1- no chest compression, no shock, no intubation. cc: Sathya Ybarra MD MTDD
[2018-10-17] MEDS ORDERED: HALDOL IV PRN (19:19)
--- NOTE | 2018-10-17 23:23 | PROVIDER PROGRESS NOTE ---
Progress Note S: No acute overnight events. Afebrile. Patient denies abdominal pain. Tolerating TPN. Spoke with daughter, Mari, that I would be willing to jeferson ttempt PEG tube placement with the understanding that he could have another complication and that his oropharyngeal dysphagia is likely secondary to his underlying Parkinson's and is unlikely to improve to the point that he will be able to maintain his caloric needs solely by mouth. The family is meeting with palliative care this afternoon discuss GOC. O: Last Vital Signs Temp 97.4 F L 10/17/18 20:41 Pulse 63 10/17/18 20:41 Resp 20 10/17/18 14:00 BP 130/84 10/17/18 20:41 Pulse Ox 100 10/17/18 20:41 Height 5 ft 11 in Weight 112 lb 8 oz GEN: awake, alert, NAD HEENT: anicteric, MMM, EOMI NECK: supple, no JVD, LAD CV: RRR, no murmurs PULM: CTAB, no wheezing ABD: soft, NT, ND, NABS, PEG tract with minimal purulent material, no induration or swelling EXT: no cce NEURO: moving all extremities symmetrically LABS: 10/17/18 06:37 Sodium 140 Potassium 4.1 Chloride 104 Carbon Dioxide 24 L BUN [address] A/P: EXAM: CT ABD/PELVIS W/IV CONT ONLY INDICATION: evaluate for residual abdominal wall infection TECHNIQUE: This exam was performed using automated exposure control, adjustment of mA or kV according to patient size, and/or use of iterative reconstruction technique. COMPARISON: 10/01/2018 FINDINGS: Fibrotic changes at the lung bases are unchanged. The gallbladder, liver, spleen, pancreas, and adrenal glands are essentially unremarkable. There is stable chronic dilation of the right renal collecting system and associated right renal atrophy. There are a few small simple appearing renal cysts bilaterally. The urinary bladder is grossly unremarkable. The aortoiliac stent graft is patent. There has been interval removal of the patient's PEG tube. The edema at the ventral abdominal wall of the left upper outer quadrant that was around the PEG tube has improved significantly. There is only mild residual edema that remains. There is no subcutaneous gas appreciated. The GI tract is essentially stable, otherwise. There is no evidence of bowel obstruction. There is no evidence of free abdominal gas. IMPRESSION: 1.Interval removal of the patient's PEG tube and significant improvement of the surrounding left upper quadrant body wall edema. 2.Other incidental/nonacute findings detailed above that are essentially stable. ASSESSMENT AND PLAN: Mr. Larry Kmuar is a 72-year-old gentleman with a past medical history of Parkinson disease requiring deep brain stimulator who was admitted here with hypernatremia, acute kidney injury, altered mental status in the setting of volume depletion from decreased PO intake. Speech evaluation here with MBS showed maxwell aspiration of thin liquids. PEG placement on 09/28 was complicated by displacement and abdominal wall infection requiring repeat EGD and PEG removal on 10/02. The patient has been on TPN and antibiotics to allow for PEG tract healing and treatment of infection, respectively. The patient was seen by general surgery team for evaluation for surgical PEG placement, which was felt would be more involved and require open placement. Surgical intervention was deferred to allow continued healing of abdominal wall infection. I reordered CT A/P today that showed improvement and essentially resolution of infection with minimal residual edema around tract. The family met with Palliative care today. The family would like to reattempt PEG tube placement. # Oropharyngeal dysphagia: 05/05 to Parkinson's: on TPN; remains NPO; will plan for repeat EGD with PEG placement on Thursday 10/19 # Abdominal wall infection: on antibiotics; consider discontinuing given resolution of infection; AM CBC pending # Parkinson. improved neurologic exam; neurology following; apprec assistance # Protein calorie malnutrition. on TPN; appreciate Nutrition recs We will follow with you. Please call with any questions or concerns.
[2018-10-18] MEDS ORDERED: ROCEPHIN 1 GM in NS 50 ML IV SCH (06:00)
[2018-10-18] MEDS ORDERED: VANCOMYCIN IV PER PHARMACY MISC SCH (06:00)
[2018-10-18 06:41] LABS: BASO# 0.14 X1000 (0.0-0.2); BASO% 2.7 % (0.0-0.8); EOS# 0.32 X1000 (0.0-0.7); EOS% 6.2 % (0.0-10.0); HEMATOCRIT 40.8 % (42.0-52.0); HEMOGLOBIN 13.8 g/dL (14.0-18.0); LYMPH# 1.41 X1000 (1.2-3.4); LYMPH% 27.4 % (20.5-51.1); MCH 29.7 PG (27-31); MCHC 33.8 g/dL (33-37); MCV 87.7 FL (81-99); MONO# 0.56 X1000 (0.11-0.59); MONO% 10.9 % (1.7-9.3); NEUT# 2.71 X1000 (1.4-6.5); NEUT% 52.8 % (42.2-75.2); PLT 152 X1000 (130-400); RBC 4.65 XMIL (4.7-6.1); RDW 13.3 % (11.5-14.5); WBC 5.14 X1000 (4.8-10.8)
[2018-10-18 07:15] LABS: AGAP 11; BUN 23 mg/dL (8-22); CALCIUM 9.2 mg/dL (8.8-10.2); CHLORIDE 104 mmol/L (98-107); COSMO 281; ESTIMATED GFR > 60; GLUCOSE 96 mg/dL (70-104); MAGNESIUM 2.2 mg/dL (1.5-2.7); PHOSPHORUS 3.7 mg/dL (2.7-4.5); POTASSIUM 3.9 mmol/L (3.5-5.1); SODIUM 139 mmol/L (136-145); TCO2 24 mmol/L (25-35)
[2018-10-18] MEDS: LIPOSYN 20% 250 ML IV SCH (08:09)
[2018-10-18] MEDS: NON-FORMULARY MED TOP SCH (08:09)
[2018-10-18] MEDS: NON-FORMULARY MED SL SCH ×4 (08:10→21:57)
[2018-10-18] MEDS: BACITRACIN OINTMENT TOP SCH (08:11)
[2018-10-18] MEDS ORDERED: VANCOMYCIN 1,500 MG in NS 250 ML IV SCH (10:00)
[2018-10-18] MEDS: TPN ELECTROLYTES 20 ML, MAGNESIUM SULFATE 5 MEQ, POTASSIUM CHLORIDE 25 MEQ, SODIUM PHOS... IV SCH ×8 (12:34)
[2018-10-18] MEDS: PEPCID IV SCH (13:19)
[2018-10-18] MEDS: SODIUM CHLORIDE 0.9% INJ SCH (13:20)
--- NOTE | 2018-10-18 13:49 | GASTROENTEROLOGY PROGRESS NOTE ---
DATE: 10/18/2018 SUBJECTIVE: The patient is resting in bed. He is feeling better. He will be scheduled for a PEG tube tomorrow. I reviewed the CT scan report which is showing improvement of the PEG tube site infection. PHYSICAL EXAMINATION: Vital Signs: Temperature of 99.1, pulse rate of 66, respiratory rate of 13, blood pressure of 139/91, saturating 98% on room air. Body weight of 112 pounds and 8 ounces. BMI 15.7 kg/m2. General Appearance: Thinly built, lying in bed, in no acute distress. HEENT: No pallor. No icterus. Neck: Supple. Abdomen: Soft. The PEG tube site appears healed. There was a scab at the PEG tube site. No drainage noted. Abdomen: Soft, nontender, nondistended. Extremities: No cyanosis or clubbing. Neurologic: He is alert, awake, and he is nonverbal. He nods his head to questions. LABS: Hemoglobin and hematocrit are 13.8 and 40.8, white count of 5.14, platelet count of 152,000. Sodium 139, potassium 3.9, chloride 104, bicarb 24, anion gap 11, BUN of 23, creatinine 1, glucose of 96, calcium is 9.2. Phosphorus 3.7, magnesium 2.2. IMPRESSION AND PLAN: 1. Oropharyngeal dysphagia. 2. Abdominal wall infection, on antibiotics. 3. Malnutrition. He is on total parenteral nutrition. 4. Parkinson's disease. He is being followed by the neurology team. 5. History of Parkinson's disease, requiring deep brain stimulator. Aware. 6. Acute kidney injury, improved. 7. High aspiration risk secondary to Parkinson's disease and oropharyngeal dysphagia. Aware. 8. Percutaneous endoscopic gastrostomy tube site infection has improved. The patient will be scheduled for a percutaneous endoscopic gastrostomy tube placement tomorrow with DR. Lewis. The patient will be made nothing per oral past midnight. In the interim, we will continue total parenteral nutrition and intravenous antibiotics per the primary care team. We will keep him on Pepcid twice daily for gastrointestinal prophylaxis. 9. Further recommendations are pending the hospital course. The above plan was discussed with the patient's nurse and all questions were answered. Please call us with any further questions. cc: MD Dr. Tate Rodriguez MD
--- NOTE | 2018-10-18 15:09 | PROGRESS NOTE ---
DATE: 10/18/2018 INTERVAL HISTORY: I had an extensive discussion with the family yesterday about his clinical condition including patient's , daughter, and son-in-law, and I had answered all of their questions. I had conveyed to the manager balance about their wishes about proceeding with PEG tube. Otherwise overnight did not have any events. I have stopped his antibiotics considering normal CBC. SUBJECTIVE: The patient appears much more alert and oriented today. He is following all simple commands to me. VITALS: Temperature 98, pulse 67, respiratory rate 16, blood pressure 150/83, saturating 100% on room air. PHYSICAL EXAMINATION: General: He does not appear in any acute distress. Oral cavity: He keeps his mouth open. Oral cavity is dry. I could see sublingual tablet, which is partially dissolved. Lungs: Air entry bilateral equal. No wheezing, rhonchi, or crackles. Cardiovascular: S1, S2 normal, No murmur, rub, or gallop. Abdomen: Soft, scaphoid. He does have healing PEG tube site wound. There is mild erythema around it without any induration or signs of peritonitis. Extremities: No lower extremity edema. Neurologic: He does have generalized rigidity but he is alert. He is following simple commands like raising and moving bilateral lower extremities, shaking hands, and he is engaging in some conversation with monosyllable answers. LABORATORY: No leukocytosis, normocytic anemia, normal platelet count, normal electrolytes, normal kidney function. MICROBIOLOGY: No data. CT scan abdomen and pelvis finding was noted yesterday, which had resolution of abdominal wall cellulitis. ASSESSMENT AND PLAN: 1. Oropharyngeal dysphagia due to advancing Parkinson disease failing modified barium swallow twice. Continue total parenteral nutrition. GI team on board for attempting repeat PEG tube placement. 2. Percutaneous endoscopic gastrostomy tube infection with Klebsiella and Enterococcus. The patient had initial PEG tube placement on 09/28, which came out because of unclear reason, and then the PEG tube site was infected with Enterococcus and Klebsiella so it had to be removed on 10/02. He is status post intravenous vancomycin and ceftriaxone for about 12-13 days. Antibiotics have stopped since repeat CT scan suggests improvement. 3. Advanced Parkinson's disease. His cognition appears fairly intact on today's examination. The patient's family states that he does not have documented diagnosis of dementia, however, he was started on donepezil considering the Parkinson's medication could affect his cognition. Currently, I will continue sublingual Levodopa Carbidopa as well as Rotigotine patch. He also has deep brain stimulation being followed up at [facility]. 4. Others. Continue famotidine for gastrointestinal prophylaxis, total parenteral nutrition for nutrition. 5. Disposition: We are awaiting GI team recommendations for PEG tube placement. Palliative Care team is also on board. Plan of care discussed with patient's today. All of her questions have been answered. cc: Sathya Ybarra MD
[2018-10-19] MEDS: PEPCID IV SCH ×2 (00:44→14:03)
[2018-10-19] MEDS: SODIUM CHLORIDE 0.9% INJ SCH ×2 (00:44→14:03)
[2018-10-19] MEDS: NON-FORMULARY MED SL SCH ×2 (00:45→10:21)
[2018-10-19 07:14] LABS: AGAP 12; BUN 25 mg/dL (8-22); CALCIUM 9.2 mg/dL (8.8-10.2); CHLORIDE 104 mmol/L (98-107); COSMO 283; CREATININE 0.9 mg/dL (0.7-1.2); ESTIMATED GFR > 60; GLUCOSE 85 mg/dL (70-104); PHOSPHORUS 3.4 mg/dL (2.7-4.5); POTASSIUM 4.3 mmol/L (3.5-5.1); SODIUM 140 mmol/L (136-145); TCO2 24 mmol/L (25-35)
[2018-10-19] MEDS: LIPOSYN 20% 250 ML IV SCH (08:15)
[2018-10-19] MEDS ORDERED: DIPRIVAN 1% ONE (08:50)
[2018-10-19] MEDS ORDERED: KEFZOL 1 GM/D5W 1 GM/50 ML IVPB ONE (08:53)
--- NOTE | 2018-10-19 09:45 | ENDOSCOPY OPERATIVE NOTE ---
[facility] ENDOSCOPY OPERATIVE NOTE , EGD WITH PEG PROCEDURE REPORT EXAM DATE: 10/19/2018 PATIENT NAME: Larry Kumar MR #: [id number] BIRTHDATE: 1945 ATTENDING: Filpie Lewis MD STATUS: inpatient [facility]IGHW[address] PATROL OFFICER: INDICATIONS: The patient is a 73 yr old male here for an EGD with PEG due to dysphagia, pharyngeal. PROCEDURE PERFORMED: EGD w/ percutaneous gastrostomy tube placement MEDICATIONS: Per Anesthesia, Ancef 1gm IV TOPICAL ANESTHETIC: Lidocaine 1% CONSENT: The patient understands the risks and benefits of the procedure and understands that these r isks include, but are not limited to: sedation, allergic reaction, infection, perforation and/or bleeding. Alternative means of evaluation and treatment include, among others: physical exam, x-rays, and/or surgical intervention. The patient elects to proceed with this endoscopic procedure. HISTORY AND PHYSICAL: 10/19/2018 function. Hand hygiene and appropriate measures for infection prevention was taken. After the risks, benefits and alternatives of the procedure were thoroughly explained, Informed consent was verified, confirmed and timeout was successfully executed by the treatment team. The patient was anesthetized with topical anesthesia and the [id number] ([id number]) endoscope was introduced through the mouth and advanced to the second portion of the duoden um. The instrument was slowly withdrawn as the mucosa was fully examined. ESOPHAGUS: The mucosa of the esophagus appeared normal. STOMACH: The mucosa of the stomach appeared normal. DUODENUM: The duodenum was normal. The stomach was then inflated with air, and by a combination of transillumination and manual palpatio n, the site for the gastrostomy tube placement was selected and marked on the anterior abdominal wall. The skin of the [facility] abdomen was surgically prepped and draped with sterile towels. Utilizing strict sterile technique, the selected site was then anesthetized with 1% lidocaine by inje ction into the skin and subcutaneous tissue. A 1 cm incision was made through the skin and subcutaneous tissue, and the needle/cannula assembly was then passed through the abdominal wall and through the anterior wall of the stomach, nichol ntaining visualization with the endoscope. A snare device previously placed through the instrument channel wa s then opened and placed around the cannula, the needle was removed, and the insertion wire was passed through the arti jj and into the stomach lumen. The snare was then loosened from the cannula, and repositioned to snare the insertion wire. The snare was then pulled up to the endoscope distal tip, and the scope was then withdrawn bringing with it the snare and insertion wire. The insertion wire was then released from the snare, and then loop-attached to the Junaid Cook 24 Fr gastrostomy tube. Using the "pull technique", the G-tube was then pulled into place by traction on the insertion wire a t the abdominal wall end. The G-tube insertion site was then cleansed once again, and the external bolster was placed over the tube to secure it to the abdominal wall at 2cm from abdominal wall. Betadine ointment was placed und erneath bolster to for infection prophylaxis. A sterile dressing was then applied, and the procedure terminated. Retroflexion was performed in the stomach and revealed no abnormalities. The gastroscope was then sl owly withdrawn and removed. ADVERSE EVENT: There were no complications. IMPRESSIONS: 1. The mucosa of the esophagus appeared normal 2. The mucosa of the stomach appeared normal 3. The duodenum was normal RECOMMENDATIONS: PEG ok to use for water and meds now. Start tube feeds per nutrition recommendations in 4 hours Change PEG dressing daily Routine PEG care Monitor for signs of bleeding or infection GI to perform PEG check in AM REPEAT EXAM: Filipe Lewis MD eSigned: Filipe eLwis MD 10/19/2018 9:44 AM cc: CPT CODES: 75524 Upper gastrointestinal endoscopy including esophagus, stomach, and either the du odenum and/or jejunum as appropriate; with directed placement of percutaneous gastrostomy tube ICD CODES: 787.20 Dysphagia,unspecified The ICD and CPT codes recommended by this software are interpretations from the data that the [facility] staff has captured with the software. The verification of the translation of this report to the ICD and CPT co jesus and modifiers is the sole responsibility of the health care institution and practicing physician where this report was generated. [employer] will not be held responsible for the validity of the ICD and CPT codes i ncluded on this report. [employer] assumes no liability for data contained or not contained herein. CPT is a registered tra demark of the [employer]. PATIENT NAME: Larry Kumar MR#: [id number]
[2018-10-19] MEDS: NON-FORMULARY MED TOP SCH (10:21)
[2018-10-19] MEDS ORDERED: NON-FORMULARY MED PEG SCH (12:30)
[2018-10-19] MEDS: TPN ELECTROLYTES 20 ML, MAGNESIUM SULFATE 5 MEQ, POTASSIUM CHLORIDE 25 MEQ, SODIUM PHOS... IV SCH ×8 (12:59)
[2018-10-19] MEDS: BACITRACIN OINTMENT TOP SCH (14:00)
[2018-10-19] MEDS: COMTAN PEG SCH ×3 (14:03→20:30)
[2018-10-19] MEDS: SINEMET 25/100 PO SCH ×3 (14:03→20:30)
[2018-10-19] MEDS ORDERED: HALDOL IV PRN (16:23)
[2018-10-19] MEDS ORDERED: NON-FORMULARY MED PEG ONE (17:30)
[2018-10-19] MEDS: SEROQUEL PO PRN (20:30)
--- NOTE | 2018-10-19 20:54 | PROGRESS NOTE ---
DATE: 10/19/2018 INTERVAL HISTORY: Mr. Kumar got endoscopic-guided PEG tube placement today, which he tolerated well. SUBJECTIVE: At the time of my evaluation, patient's family is at bedside. I talked with them about his clinical condition, plan, and answered all of their questions. The patient is alert. He keeps his mouth open. Does not appear in any acute distress. OBJECTIVE: vital signs: Temperature 97.6 degrees, pulse 63, respiratory rate 18, blood pressure 120/87. He is saturating 99% on room air. Oral cavity is dry. Air entry bilaterally equal. No wheeze, rhonchi, crackles. S1, S2 normal. No murmur, rub, or gallop. Abdomen: Scaphoid. There is an abdominal binder. There is a PEG tube. The dressing appears to be non-soaked. No undue tenderness. No lower extremity edema. Neurologic: He has generalized rigidity and resting tremor. However, he also has bradykinesia. However, he is alert and following simple commands. He has hypophonia and sometimes it is difficult to appreciate his speech. LABORATORY AND DIAGNOSTIC DATA: No CBC today. BMP suggestive of normal kidney function. Microbiology, no data. No new imaging data. ASSESSMENT AND PLAN: 1. Oropharyngeal dysphagia due to advanced Parkinson disease. Failing modified barium swallow twice. Taper total parenteral nutrition. He is now status post repeat PEG tube placement on 10/19/2018. Start PEG tube feeding according to dietitian's recommendation and taper off parenteral nutrition. 2. Percutaneous endoscopic gastrostomy tube dislodgement leading to Klebsiella and Enterococcus, abdominal wall wound site infection and cellulitis. His initial PEG tube was on September 28, which was later on removed on October 02, because of dislodgement and infection. He is status post intravenous vancomycin and ceftriaxone for about 14 days, stopped on 10/18/2018, since CT had improvement. 3. Advanced Parkinson disease. Continue his home Parkinson disease medication including levodopa/carbidopa, entacapone, rasagiline. Continue nighttime quetiapine as needed for agitation and donepezil which was prophylactically added by his neurologist, though he does not have documented diagnosis of dementia. 4. Others. Continue tamsulosin for history of benign prostatic hypertrophy, famotidine for GI prophylaxis. 5. Disposition. Awaiting rehab placement. Social Work team is working on that. [facility] evaluation is pending. Plan of care discussed with the patient and his family at bedside. All of their questions have been answered. cc: Sathya Ybarra MD
[2018-10-19] MEDS: PATIENT'S OWN MED PO SCH (23:55)
[2018-10-19] MEDS: FLOMAX PO SCH (23:55)
[2018-10-20] MEDS: PEPCID IV SCH ×2 (00:40→12:35)
[2018-10-20 08:01] LABS: AGAP 9; BUN 23 mg/dL (8-22); CHLORIDE 105 mmol/L (98-107); CHOLESTEROL 104 mg/dL (0-200); COSMO 284; ESTIMATED GFR > 60; GLUCOSE 77 mg/dL (70-104); GOT 64 U/L (10-34); PHOSPHORUS 3.3 mg/dL (2.7-4.5); POTASSIUM 3.4 mmol/L (3.5-5.1); SODIUM 141 mmol/L (136-145); TCO2 27 mmol/L (25-35); TRIGLYCERIDES 88 mg/dL (39-160)
[2018-10-20] MEDS ORDERED: POTASSIUM CHLORIDE 20% LIQUID PO ONE (08:18)
[2018-10-20 08:23] LABS: PREALBUMIN 23.3 mg/dL (20-40)
[2018-10-20] MEDS: BACITRACIN OINTMENT TOP SCH (09:05)
[2018-10-20] MEDS: COMTAN PEG SCH ×4 (09:05→21:41)
[2018-10-20] MEDS: ARICEPT PO SCH (09:05)
[2018-10-20] MEDS: SINEMET 25/100 PO SCH ×4 (09:06→21:41)
[2018-10-20] MEDS: NON-FORMULARY MED PEG SCH (09:06)
[2018-10-20] MEDS: FLOMAX PO SCH ×2 (09:06→21:41)
--- NOTE | 2018-10-20 15:51 | PROGRESS NOTE ---
DATE: 10/20/2018 INTERVAL HISTORY: No acute events overnight. In the morning time, he is pleasant, not in distress. The patient's family is at bedside. The patient denies any complaints. He states that he could not sleep properly at nighttime probably because the IV line pump was making noise. He is denying any complaints. VITALS: Temperature 97.4 degrees, pulse 54, respiratory rate 18, blood pressure 124/70. He is saturating 100% on room air. PHYSICAL EXAMINATION: Oral cavity is dry. He keeps his mouth open.Lungs: Air entry bilaterally equal. No wheeze, rhonchi, or crackles. Cardiovascular: S1, S2 normal. No murmur, rub, or gallop. Abdomen: Soft. The PEG tube site is not bleeding or does not have any undue tenderness or exudate. Active bowel sounds. Extremities: No lower extremity edema. LABS: His BMP suggests potassium of 3.4 which is being repleted. MICROBIOLOGY: No data. IMAGING: No new data. ASSESSMENT AND PLAN: 1. Oropharyngeal dysphagia due to advanced Parkinson's disease, failing modified barium swallow twice, status post PEG tube which was inserted on September 28 which got dislodged on a day or 2 requiring removal on October 02 with development of abdominal wall cellulitis and PEG tube site infection with Klebsiella and Enterococcus, status post intravenous vancomycin and ceftriaxone for 14 days and placement of another PEG on 10/19/2018. Continue tube feeds. His TPN has been stopped. 2. Advanced Parkinson's disease. Continue home levodopa carbidopa, entacapone, rasagiline. Continue nighttime quetiapine as needed for agitation and donepezil which was prophylactically added by his neurologist, though he does not have documented diagnosis of dementia. 3. Others. Continue tamsulosin for history of benign prostatic hypertrophy, famotidine for GI prophylaxis. 4. Disposition. He does have clinical features of Parkinson's disease including rigidity, bradykinesia, hypophonia. Yesterday he was able to sit at the edge of the bed with physical therapy's help. He would benefit from intensive physical therapy and speech therapy to help with his functional status. Social Work team is on board and rehab placement is awaited. Meanwhile, we will try to get peripheral IV access and discontinue his PICC line. Plan of care discussed with the patient and his family at bedside. Their questions have been answered. cc: Sathya Ybarra MD
[2018-10-20] MEDS: SEROQUEL PO PRN (21:41)
[2018-10-20] MEDS: PATIENT'S OWN MED PO SCH (21:41)
--- NOTE | 2018-10-21 00:03 | EKG Report ---
Test Performed on : 10/20/2018 10:06:34 AM Test Reason : QTc Monitor Blood Pressure : / mmHG Vent. Rate : 060 BPM Atrial Rate : 019 BPM P-R Int : 000 ms QRS Dur : 070 ms QT Int : 432 ms P-R-T Axes : 000 096 115 degrees QTc Int : 432 ms Normal sinus rhythm. with sinus arrhythmia. Inferior infarct (cited on or before 05-AUG-2018) Abnormal ECG When compared with ECG of August 05, 2018- No significant change was found Confirmed by Brian Payne MD ([id number]) on 10/21/2018 8:43:56 PM
[2018-10-21] MEDS: SODIUM CHLORIDE 0.9% INJ SCH (00:11)
[2018-10-21] MEDS: PEPCID IV SCH ×3 (00:11→23:54)
--- NOTE | 2018-10-21 05:32 | GASTROENTEROLOGY PROGRESS NOTE ---
DATE: 10/20/2018 SUBJECTIVE: The patient is resting in bed. His son was at bedside. We examined the PEG tube site, it appears to be healing well. There was no drainage. No erythema around the PEG tube site. The external bumper was marked at 2 cm. OBJECTIVE: Vital signs: Temperature 97.4 degrees, pulse of 54, respiratory rate 18, blood pressure 124/70, saturating 100% room air. Body weight 112 pounds 8 ounces. BMI 15.7 kg/m2. General Appearance: Patient is lying in bed, in no acute distress. HEENT: No pallor. No icterus. Neck: Supple. Abdomen: Abdominal binder in place. Abdomen: Soft, nontender, nondistended. No guarding. No rebound. PEG tube in place. External bumper at 2 cm. There was some old blood from around the external PEG tube site, but no active drainage. No erythema noted. Extremities: No cyanosis, clubbing. Neurologic: Patient is awake and alert. Answers some questions. LABS: His sodium 140, potassium 3.4, chloride 105, bicarb 27, anion gap 9, BUN of 23, creatinine 1, glucose of 77, calcium is 9, phosphorus 3.3, magnesium 2.0, AST 64. Prealbumin of 23.3. cholesterol 104. IMPRESSION AND PLAN: 1. Oropharyngeal dysphagia due to advanced Parkinson disease. He had EGD with PEG tube placement yesterday by Dr. Lewis. We will continue to keep the PEG tube site dry. Abdominal binder in place all the time. He will continue aspiration precautions. Nursing staff to keep the PEG tube clean and dry all the time. The patient is advised to avoid pulling of the PEG tube site. He will continue on recommendations of the nutrition team. 2. Advanced Parkinson disease. He is getting treatment per the Neurology team. 3. Gastrointestinal prophylaxis with famotidine. 4. Malnutrition. He is on TPN and PEG tube feedings. The TPN is being weaned out and he is on PEG tube feeding now. Above plans with the patient's nursing staff at bedside. All questions answered. Please call us with any further questions. Will sign off at this time. cc: MD Linda Rodriguez MD [facility]ITAL[facility]alini
[2018-10-21] MEDS: SINEMET 25/100 PO SCH ×4 (09:10→20:57)
[2018-10-21] MEDS: FLOMAX PO SCH ×2 (09:10→20:57)
[2018-10-21] MEDS: ARICEPT PO SCH (09:10)
[2018-10-21] MEDS: NON-FORMULARY MED PEG SCH (09:11)
[2018-10-21] MEDS: BACITRACIN OINTMENT TOP SCH (09:12)
[2018-10-21] MEDS: COMTAN PEG SCH ×4 (09:12→20:57)
--- NOTE | 2018-10-21 14:17 | PROGRESS NOTE ---
DATE: 10/21/2018 INTERVAL HISTORY: No acute events overnight. He did have a temperature of 99.7 degrees, His friends and family are at bedside. They were saying that he was coughing up something in the morning time. The patient does not appear in any acute distress. VITALS: Temperature 98.1 degrees, pulse 68, respiratory rate 18, blood pressure 126/77, saturating 97% on room air. PHYSICAL EXAMINATION: General: Not in any acute distress. HEENT: Oral cavity is moist. He does have a sputum spec stuck onto his hard palate. Lungs: Air entry bilaterally equal. No wheeze, rhonchi, crackles. Cardiovascular: S1, S2 normal. Regular. No murmur or gallop. Abdomen: Abdominal binder underneath the base of PEG tube. The site appears to be nonbleeding, non-oozing. No abdominal tenderness. Extremities: No lower extremity edema. Neurologic: He is alert. He is following simple commands like opening mouth, shaking hands. He does have generalized rigidity. He has hypophonia. He is following commands, but because of his Parkinson disease, does not engage in a very lengthy communication. LABS: No CBC or BMP today. ASSESSMENT AND PLAN: 1. Oropharyngeal dysphagia due to advanced Parkinson disease, failing modified barium swallow twice, status post PEG tube on September 28 which got dislodged causing abdominal wall cellulitis, status post removal on October 02 because of Klebsiella and Enterococcus abdominal wall cellulitis at the PEG tube site, status post intravenous vancomycin and cefepime for 14 days and placement of another PEG tube on October 19. Continue tube feeds. His TPN has been stopped. 2. Advanced Parkinson disease. Continue home levodopa-carbidopa, entacapone, rasagiline, nighttime quetiapine as needed for agitation, donepezil prophylactically for cognitive impairment which was started by his home neurologist without any documented diagnosis of dementia. He also had deep brain stimulation done at [facility]. 3. Others. Continue tamsulosin for history of benign prostatic hypertrophy, famotidine for GI prophylaxis. 4. Disposition. We are awaiting rehab bed placement where he could go and get intense physical therapy as well as speech therapy. Plan of care discussed with the patient and other family members at bedside. All of their questions have been answered. cc: Sathya Ybarra MD
[2018-10-21] MEDS: PATIENT'S OWN MED PO SCH (20:57)
[2018-10-21] MEDS: SEROQUEL PO PRN (21:05)
[2018-10-22 07:53] LABS: AGAP 15; BUN 20 mg/dL (8-22); CALCIUM 8.9 mg/dL (8.8-10.2); CHLORIDE 105 mmol/L (98-107); COSMO 282; ESTIMATED GFR > 60; GLUCOSE 95 mg/dL (70-104); POTASSIUM 4.7 mmol/L (3.5-5.1); SODIUM 140 mmol/L (136-145); TCO2 20 mmol/L (25-35)
[2018-10-22 08:49] LABS: BASO# 0.11 X1000 (0.0-0.2); BASO% 2.2 % (0.0-0.8); EOS# 0.48 X1000 (0.0-0.7); EOS% 9.7 % (0.0-10.0); HEMATOCRIT 43.6 % (42.0-52.0); HEMOGLOBIN 14.3 g/dL (14.0-18.0); LYMPH# 1.28 X1000 (1.2-3.4); MCH 29.7 PG (27-31); MCHC 32.8 g/dL (33-37); MCV 90.6 FL (81-99); MONO# 0.55 X1000 (0.11-0.59); MONO% 11.2 % (1.7-9.3); MPV 12.3 FL (7.4-10.4); NEUT# 2.51 X1000 (1.4-6.5); NEUT% 50.9 % (42.2-75.2); PLT 120 X1000 (130-400); RBC 4.81 XMIL (4.7-6.1); RDW 13.6 % (11.5-14.5); WBC 4.93 X1000 (4.8-10.8)
[2018-10-22] MEDS: COMTAN PEG SCH ×4 (09:21→20:31)
[2018-10-22] MEDS: SINEMET 25/100 PO SCH ×4 (09:22→20:32)
[2018-10-22] MEDS: FLOMAX PO SCH ×2 (09:22→20:31)
[2018-10-22] MEDS: BACITRACIN OINTMENT TOP SCH (09:22)
[2018-10-22] MEDS: NON-FORMULARY MED PEG SCH (09:23)
[2018-10-22] MEDS: ARICEPT PO SCH (09:23)
[2018-10-22] MEDS: PEPCID IV SCH (13:18)
--- NOTE | 2018-10-22 18:31 | PROGRESS NOTE ---
DATE: 10/22/2018 INTERVAL HISTORY: No acute events overnight. [facility] team has evaluated the patient. He is pending approval as well as insurance approval. He is denying any new complaints. He did have high residuals, and he is getting tube feeds right now. No other acute events. Family is at bedside. The patient denies new complaints. VITALS: Temperature 97.5 degrees, pulse 65, respiratory rate 20, blood pressure 115/62, he is saturating 100% on room air. PHYSICAL EXAMINATION: In general, he does not appear to be in any acute distress. Oral cavity is dry. Air entry bilaterally equal. No wheeze, rhonchi, crackles. S1, S2 normal, regular. No murmur, rub, or gallop. His PEG tube site appears to be not infected. There is not any oozing. There is no abdominal tenderness. He does not have any lower extremity edema.Neurologic: He is alert. He is following simple commands like opening mouth, shaking hands. He does have generalized rigidity and resting tremor. He has hypophonia. He is following all simple commands. LABS: Today suggestive of no leukocytosis. He does have thrombocytopenia; he may need a repeat platelet count 48 hours later to make sure it is stable. His electrolytes are within acceptable range. ASSESSMENT AND PLAN: 1. Oropharyngeal dysphagia due to advanced Parkinson disease, failing modified barium swallow twice, status post percutaneous endoscopic gastrostomy tube on September 28, which got dislodged causing abdominal wall cellulitis by Klebsiella and Enterococcus, requiring removal of percutaneous endoscopic gastrostomy tube on October 02 and 14-day course of intravenous antibiotics and status post again placement of percutaneous endoscopic gastrostomy tube on October 19. He is currently tolerating tube feeds well. Continue abdominal binder. His TPN was stopped. 2. Advanced Parkinson disease. Continue home carbidopa/levodopa, entacapone, rasagiline, nighttime quetiapine as needed for agitation, donepezil prophylactically for cognitive impairment which was started by his outpatient neurologist without any diagnosis of dementia so far. He also has a deep brain stimulation done at [facility] for his Parkinson disease. 3. Others: Continue tamsulosin for history of BPH, famotidine for GI prophylaxis. DISPOSITION: [facility] has evaluated the patient. Insurance approval is also pending. Social Work is working on finding a placement for him. The patient's daughter especially is very much involved in his care. I currently discussed the patient's care with the patient's . I will again go back and discuss the care with the patient's daughter and would answer all of her questions. cc: Sathya Ybarra MD
[2018-10-22] MEDS: PATIENT'S OWN MED PO SCH (20:32)
[2018-10-22] MEDS: SEROQUEL PO PRN (20:33)
--- NOTE | 2018-10-23 07:39 | Diag Imaging Result Doc PS360 ---
EXAM: CHEST-PORTABLE INDICATION: Persistent cough TECHNIQUE: One view COMPARISON: 09/23/2018 FINDINGS: COPD changes are noted. Mild interstitial thickening bilaterally is essentially stable. Much of this probably represents chronic interstitial fibrotic change. There may be a component of mild edema as well. There is no discrete pleural fluid collection or pneumothorax. Cardiac silhouette is unremarkable. IMPRESSION: COPD changes and stable mild increased interstitial markings as described. Electronically signed by Jony Alex 10/23/2018 7:37 AM
[2018-10-23] MEDS: NON-FORMULARY MED PEG SCH (08:26)
[2018-10-23] MEDS: SINEMET 25/100 PO SCH ×4 (08:26→22:03)
[2018-10-23] MEDS: COMTAN PEG SCH ×4 (08:26→22:02)
[2018-10-23] MEDS: BACITRACIN OINTMENT TOP SCH (08:27)
[2018-10-23] MEDS: ARICEPT PO SCH (08:27)
[2018-10-23] MEDS: FLOMAX PO SCH ×2 (08:27→22:02)
[2018-10-23] MEDS: PEPCID IV SCH ×3 (12:58→23:25)
--- NOTE | 2018-10-23 15:15 | PROGRESS NOTE ---
DATE: 10/23/2018 SUBJECTIVE: Patient is resting comfortably in bed, a family friend is at the bedside. He seems to be stable and he is tolerating the feeding tube. He has oropharyngeal dysphagia due to advanced Parkinson disease and a PEG tube has been placed successfully. Pending rehab center placement. OBJECTIVE: Vital Signs: Temperature 97.8 degrees, pulse 62, respiratory rate 16, blood pressure 152/88 oxygen saturation 100% on room air. HEENT: Head normocephalic, no trauma. PERRLA. Neck: Supple. No JVD. Central trachea. Chest: Clear to auscultation. No wheezing. No rales. Abdomen: Soft. PEG tube in place. No signs of infection. Not oozing. There is no abdominal tenderness. There is a binder. Extremities: No edema, no clubbing, no cyanosis. Generalized weakness. Neurological: He is alert. He is following simple commands. He has tremors and generalized rigidity. LABORATORY: No lab work done today, but yesterday his WBC was 4.9, hemoglobin 14.3, platelet count 120. Sodium 140, potassium 4.7, chloride 105, bicarbonate 20, BUN 20, creatinine 1, calcium 9.9. ASSESSMENT AND PLAN: 1. Oropharyngeal dysphagia due to advanced Parkinson disease, failing modified barium swallow twice, status post percutaneous endoscopic gastrostomy tube on September 28, which got dislodged causing abdominal wall cellulitis by Klebsiella and Enterococcus requiring removal of the percutaneous endoscopic gastrostomy tube on 10/02/2018 and 14 days of intravenous antibiotics. They replaced the percutaneous endoscopic gastrostomy tube again on 10/19/2018. He is currently doing well with tube feeds. We will continue with the same management. Abdominal binder. 2. Advanced Parkinson disease as above. Continue with home medications, carbidopa/levodopa, entacapone, Rasagiline, quetiapine as needed for agitation during the night, donepezil for his cognitive impairment/dementia, and all these apparently were started as an outpatient by his neurologist. He also has a deep brain stimulator done at [facility] for his Parkinson disease. 3. Benign prostatic hyperplasia. Continue with tamsulosin. 4. Gastrointestinal prophylaxis with famotidine. 5. Generalized weakness and deconditioning, pending rehabilitation center placement. cc: Nikolay Martines MD
[2018-10-23] MEDS: PATIENT'S OWN MED PO SCH (22:03)
[2018-10-24 06:43] LABS: MPV 12.7 FL (7.4-10.4)
[2018-10-24] MEDS: ARICEPT PO SCH (09:40)
[2018-10-24] MEDS: BACITRACIN OINTMENT TOP SCH (09:40)
[2018-10-24] MEDS: SINEMET 25/100 PO SCH ×4 (09:41→21:36)
[2018-10-24] MEDS: FLOMAX PO SCH ×2 (09:41→21:36)
[2018-10-24] MEDS: COMTAN PEG SCH ×4 (09:41→21:36)
[2018-10-24] MEDS: NON-FORMULARY MED PEG SCH (09:41)
[2018-10-24] MEDS: PEPCID IV SCH ×2 (12:06→23:27)
[2018-10-24 12:26] LABS: INR 1.03; PROTIME 14.4 Seconds (11.0-16.0); PTT 29.3 Seconds (22.3-41.8)
--- NOTE | 2018-10-24 14:19 | PROGRESS NOTE ---
DATE: 10/24/2018 SUBJECTIVE: When I evaluated this patient, he was sitting at the bedside. He seems to be tolerating the feeding tube. He has oropharyngeal dysphagia due to advanced Parkinson's disease and a PEG tube has been placed successfully. Pending rehab center placement. OBJECTIVE: Vital Signs: Temperature 97.5 degrees, pulse 99, respiratory rate 17, blood pressure 143/78, oxygen saturation 98 on room air. HEENT: Head normocephalic. No trauma. PERRLA. Neck: Supple. No JVD. No masses. Central trachea. Chest: Clear to auscultation. No wheezing. Some crepitus at the bases. Abdomen: Soft. PEG tube in place. No signs of infection. No oozing. There is no abdominal tenderness. There is a binder. Extremities: No edema, no clubbing, no cyanosis. Generalized weakness. Neurological Examination: This patient is alert. He is following commands. He has tremors and generalized rigidity. He is answering questions. Laboratory: Platelet count 106,000. ASSESSMENT AND PLAN: 1. Oropharyngeal dysphagia due to advanced Parkinson's disease, failing modified barium swallow twice, status post percutaneous endoscopic gastrostomy tube on September 28 which got dislodged, causing abdominal wall cellulitis by Klebsiella and Enterococcus, requiring removal of the percutaneous endoscopic gastrostomy tube on 10/02/2018 and 14 days of intravenous antibiotics. The percutaneous endoscopic gastrostomy tube has been replaced again on 10/19/2018. He is doing well now. We will continue with the same management. Continue with the abdominal binder. 2. Advanced Parkinson's disease, as above. Continue home medications. 3. Benign prostatic hypertrophy. Continue with tamsulosin. 4. Gastrointestinal prophylaxis with famotidine. 5. Generalized weakness and deconditioning, pending rehab center placement. 6. Thrombocytopenia. I have requested an evaluation by hematology/oncology department. We will monitor. cc: Nikolay Martines MD
--- NOTE | 2018-10-24 16:23 | HEMO/ONC CONSULTATION ---
DATE: 10/24/2018 REQUESTED BY: Hospitalist Service. REASON FOR CONSULTATION: Thrombocytopenia. HISTORY OF PRESENT ILLNESS: Mr. Kumar is a 72-year-old, male, who has a history of Parkinson disease, who initially presented to the emergency department with a history of worsening mental status, as well as difficulty in swallowing. A feeding tube was placed to help with the patient's nutrition and subsequently became dislodged, and he developed an abdominal wall cellulitis. This required him to be on IV antibiotics for 14 days. He has finished his complete course of IV antibiotics at this time. He has since then had another feeding tube placed. On admission, the patient had normal platelet counts. His platelet count on 09/22 was 198,000. Over the last couple days, his platelet count has declined some. His platelet count today is 106,000. He has had no abnormal bleeding. He has no history of low platelet count or other cytopenias. Review of the records show that the patient has not received any Lovenox during this hospitalization. He is currently on tube feedings, which he seems to be tolerating well. PAST MEDICAL HISTORY: 1. Parkinson disease, advanced. 2. Hypertension. PAST SURGICAL HISTORY: 1. Deep brain stimulator implanted. 2. TURP. 3. Aortic aneurysm repair. SOCIAL HISTORY: Patient is a former smoker. He also has previously used alcohol in social settings. No history of illicit drug use. His daughter and family friend are at bedside. His daughter seems to be the one helping to manage his care. FAMILY HISTORY: Positive for coronary artery disease. REVIEW OF SYSTEMS: Pretty limited. Patient does not communicate well. Not really able to obtain a complete review of systems, although from talking with the patient and his daughter, he has no other issues other than what is described in the HPI. PHYSICAL EXAMINATION: Vital Signs: Temperature 97.8 degrees, heart rate 67, respirations 18, blood pressure 130/88, O2 saturation 97% on room air. General: This is a thin, male sitting up in his hospital chair. He does not appear to be in any acute distress. Head: Head normocephalic, atraumatic. Eyes: Pupils equal, round, reactive. Ears, nose, throat, neck and mouth: Oral mucosa appears to be normal. The patient does not talk, but seems to be responsive during our conversation. Cardiovascular: S1, S2 heard. Respiratory: Coarse breath sounds throughout. Gastrointestinal: Abdomen is soft, with positive bowel sounds noted. Musculoskeletal: He has muscle wasting, but no bony abnormalities noted. Neurologic: The patient is alert. LABS AND STUDIES: Platelet count today is 106,000 as per above. MPV is 12.7, white blood cell count is normal at 4.93, hemoglobin 14.3. Sodium 140, potassium 4.7, chloride 105, CO2 20. BUN 20, creatinine 1.0, glucose 95. ASSESSMENT AND PLAN: 1. Thrombocytopenia, new onset. Historically, the patient has had normal platelet counts. He has no evidence of any maxwell infection currently. It seems that his only new medications throughout his hospitalization have been intravenous antibiotics, which have since been discontinued due to the patient completing his full course. We will go ahead and check vitamin studies, and plan to replete as indicated. Likely has medication- induced thrombocytopenia. Continue to monitor. Provide supportive care via platelet transfusions as needed. No evidence of any bleeding currently, and again the patient did not receive any heparin during this hospitalization from chart review. We will go ahead and check a disseminated intravascular coagulation panel for completeness. Follow up on those results. 2. Parkinson disease. He will continue all his current medications. Management per the primary team. 3. Malnutrition. He will continue on tube feedings. 4. Dysphagia related to Parkinson disease. Overall stable. Continue with tube feedings as per above. We want to thank you for consulting us on Mr. Kumar. We will continue to follow along and adjust our treatment plan per his hospital course. Dictated by ISAIAS Fox for Carri Watson MD cc: Carri Watson MD I have seen and examined the patient and the above note reflects my history, physical, assessment and plan. Carri Watson MD [facility]OSPITALShalini
[2018-10-24] MEDS: PATIENT'S OWN MED PO SCH (21:36)
[2018-10-25 06:43] LABS: EOS# 0.41 X1000 (0.0-0.7); HEMATOCRIT 43.1 % (42.0-52.0); IMM GRAN# 0.02 X1000 (0.0-0.04); IMM GRAN% 0.4 % (0.0-0.5); LYMPH# 1.28 X1000 (1.2-3.4); LYMPH% 25.1 % (20.5-51.1); MCH 30.2 PG (27-31); MCHC 32.5 g/dL (33-37); MCV 93.1 FL (81-99); MONO# 0.49 X1000 (0.11-0.59); MONO% 9.6 % (1.7-9.3); MPV 12.8 FL (7.4-10.4); NEUT% 54.9 % (42.2-75.2); PLT 111 X1000 (130-400); RBC 4.63 XMIL (4.7-6.1); RDW 13.8 % (11.5-14.5)
[2018-10-25 07:01] LABS: AGAP 13; BUN 23 mg/dL (8-22); CALCIUM 8.7 mg/dL (8.8-10.2); CHLORIDE 104 mmol/L (98-107); COSMO 283; ESTIMATED GFR > 60; GLUCOSE 90 mg/dL (70-104); POTASSIUM 3.9 mmol/L (3.5-5.1); SODIUM 140 mmol/L (136-145); TCO2 23 mmol/L (25-35)
[2018-10-25] MEDS: COMTAN PEG SCH ×5 (07:36→22:03)
[2018-10-25] MEDS: BACITRACIN OINTMENT TOP SCH ×2 (07:36→08:02)
[2018-10-25] MEDS: ARICEPT PO SCH ×2 (07:36→08:02)
[2018-10-25] MEDS: FLOMAX PO SCH ×3 (07:37→22:03)
[2018-10-25] MEDS: SINEMET 25/100 PO SCH ×5 (07:37→22:06)
[2018-10-25] MEDS: NON-FORMULARY MED PEG SCH ×2 (07:37→08:02)
--- NOTE | 2018-10-25 12:22 | PROGRESS NOTE ---
DATE: 10/25/2018 SUBJECTIVE: The patient is sitting at the bedside at this moment, doing physical activity with Physical Therapy. He seems to be tolerating the feeding tube, and he has been doing well. His platelet count stable and going up. OBJECTIVE: Vital Signs: Temperature 97.9 degrees, pulse 68, respiratory rate 19, blood pressure 139/84, oxygen saturation 100% on room air. HEENT: Head normocephalic, no trauma. PERRLA. Neck: Supple. No JVD. No masses. Central trachea. Chest: Clear to auscultation. No wheezing. Some crepitus at the bases. Abdomen: Soft. PEG tube in place. No signs of infection. There is no abdominal tenderness. There is a binder. Extremities: No edema, no clubbing, no cyanosis. Generalized weakness. Neurological: The patient is alert. He is following commands. He has generalized tremors and rigidity. He is answering questions. LABORATORY: WBC 5.1, hemoglobin 14, hematocrit 43.1, platelet count 111,000. Sodium 140, potassium 3.9, chloride 104, bicarbonate 23, BUN 23, creatinine 1, glucose 90, calcium 8.7. ASSESSMENT AND PLAN: 1. Oropharyngeal dysphagia due to advanced Parkinson disease, failing modified barium swallow twice, status post percutaneous endoscopic gastrostomy tube on September 28, which got dislodged causing abdominal wall cellulitis with Klebsiella and Enterococcus, requiring removal of the percutaneous endoscopic gastrostomy tube on 10/02/2018 and 14 days of intravenous antibiotics. The PEG tube has been replaced again on 12/20/2018. He is doing well now. We will continue with same management. I will continue with abdominal binder. 2. Advanced Parkinson disease. As above. Continue with home medications. 3. BPH. Continue with tamsulosin. 4. Gastrointestinal prophylaxis with famotidine. 5. Generalized weakness and physical deconditioning on top of advanced Parkinson disease. Pending rehabilitation center placement. 6. Thrombocytopenia. This is getting better. Hematology/Oncology on board. cc: Nikolay Martines MD
[2018-10-25] MEDS: PEPCID IV SCH (13:29)
[2018-10-25] MEDS: SEROQUEL PO PRN (18:09)
[2018-10-25] MEDS: PATIENT'S OWN MED PO SCH (22:06)
[2018-10-26] MEDS: PEPCID IV SCH ×3 (01:23→23:26)
[2018-10-26 07:07] LABS: MPV 13.1 FL (7.4-10.4)
[2018-10-26] MEDS: ARICEPT PO SCH (08:00)
[2018-10-26] MEDS: COMTAN PEG SCH ×4 (08:00→21:04)
[2018-10-26] MEDS: BACITRACIN OINTMENT TOP SCH (08:00)
[2018-10-26] MEDS: FLOMAX PO SCH ×2 (08:00→21:04)
[2018-10-26] MEDS: SINEMET 25/100 PO SCH ×4 (08:01→21:04)
[2018-10-26] MEDS: NON-FORMULARY MED PEG SCH (08:01)
--- NOTE | 2018-10-26 10:30 | PROGRESS NOTE ---
DATE: 10/26/2018 SUBJECTIVE: No acute events overnight, platelet count is getting better. OBJECTIVE: Vital Signs: Temperature 97.6 degrees, pulse 60, respiratory rate 16, blood pressure 147/97, oxygen saturation 100% on room air. HEENT: Head normocephalic, no trauma. PERRLA. Neck: Supple. No JVD. No masses. Central trachea. Chest: Clear to auscultation. No wheezing. Some crepitus at the bases. Abdomen: Soft. PEG tube in place. No signs of infection. There is no abdominal tenderness. There is a binder. Extremities: No edema, no clubbing, no cyanosis. Generalized weakness . Neurological examination: The patient is alert. He is following commands. He has generalized tremors and rigidity. He has Parkinson disease. He is answering some of my questions. LABORATORY: Platelet count 117. ASSESSMENT AND PLAN: 1. Oropharyngeal dysphagia due to advanced Parkinson disease, failing modified barium swallow twice, status post percutaneous endoscopic gastrostomy tube on September 28, 2018, which got dislodged causing abdominal wall cellulitis with Klebsiella and Enterococcus, requiring removal of the percutaneous endoscopic gastrostomy on 10/02/2018 and 14 days of antibiotics intravenous. The percutaneous endoscopic gastrostomy tube has been replaced again on 10/19/2018. He is doing well. He is tolerating the food. We will continue with the abdominal binder for now. 2. Advanced Parkinson disease, as above. Continue with home medications. 3. Benign prostatic hypertrophy. Continue with tamsulosin. 4. Gastrointestinal prophylaxis with famotidine. 5. Generalized weakness and physical deconditioning on top of advanced Parkinson disease, pending rehabilitation center placement. 6. Thrombocytopenia. This is getting better probably due to his course of antibiotics. We will monitor. cc: Nikolay Martines MD
[2018-10-26] MEDS: SODIUM CHLORIDE 0.9% INJ SCH ×2 (14:44→23:26)
--- NOTE | 2018-10-26 15:16 | HEMO/ONC PROGRESS NOTE ---
DATE: 10/26/2018 SUBJECTIVE: It appears that Mr. Kumar' platelets are improving. He likely has a drug-induced thrombocytopenia. His platelet count should continue to improve the longer he is off of IV antibiotics. He will follow up for monitoring with his primary care physician once he is out of the hospital. Dictated by ISAIAS Fox for Carri Watson MD cc: Carri Watson MD
[2018-10-26] MEDS: PATIENT'S OWN MED PO SCH (21:04)
[2018-10-26] MEDS: SEROQUEL PO PRN (23:14)
[2018-10-27 07:20] LABS: MPV 12.5 FL (7.4-10.4)
[2018-10-27] MEDS: FLOMAX PO SCH ×2 (09:42→21:06)
[2018-10-27] MEDS: COMTAN PEG SCH ×4 (09:42→21:06)
[2018-10-27] MEDS: NON-FORMULARY MED PEG SCH (09:42)
[2018-10-27] MEDS: ARICEPT PO SCH (09:42)
[2018-10-27] MEDS: SINEMET 25/100 PO SCH ×4 (09:42→21:06)
[2018-10-27] MEDS: BACITRACIN OINTMENT TOP SCH (09:42)
[2018-10-27] MEDS: PEPCID IV SCH ×2 (13:39→23:53)
--- NOTE | 2018-10-27 17:31 | PROGRESS NOTE ---
DATE: 10/27/2018 SUBJECTIVE: This morning Mr. Kumar was sitting up at the edge of the bed. The was at the bedside at the time of the encounter. He refers to be doing well. No new complaints. OBJECTIVELY: Vital: Blood pressure is 151/95, pulse is 79, respiration 20, temperature 97.5 degrees. General: Mr. Garcia is 73-year-old male. He is in bed, in no distress. Mucosa is pink and moist. Anicteric. Acyanotic. Neck: Supple. Chest: Clear. Cardiovascular: Regular rate and rhythm. Abdomen: Soft PEG tube is in place. There is a binder over the PEG tube. Extremities: No pedal edema. 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 LABORATORY DATA: Platelet count is 126,000. CURRENT MEDICATIONS: Have all been reviewed. ASSESSMENT: 1. Severe oropharyngeal dysphagia secondary to advanced Parkinson's. The patient has failed barium swallow. He is currently status post PEG tube, tolerating tube feeding well. 2. Advanced Parkinson disease. 3. Benign prostatic hypertrophy, 4. Generalized weakness and deconditioning. The patient is getting physical therapy. 5. Drug-induced thrombocytopenia improved. 6. Disposition is still pending. assisted facility placement. I understand the patient's insurance [facility]. cc: Radu Zavala MD
[2018-10-27] MEDS: SEROQUEL PO PRN (21:06)
[2018-10-27] MEDS: PATIENT'S OWN MED PO SCH (21:06)
[2018-10-27] MEDS: SODIUM CHLORIDE 0.9% INJ SCH (23:53)
[2018-10-28 08:11] LABS: AGAP 13; ALB/GLOB RATIO 0.9; ALBUMIN 3.4 g/dL (3.5-5.0); ALKALINE PHOSPHATASE 71 U/L (32-122); BUN 22 mg/dL (8-22); CALCIUM 9.4 mg/dL (8.8-10.2); CHLORIDE 102 mmol/L (98-107); COSMO 282; ESTIMATED GFR > 60; GLUCOSE 93 mg/dL (70-104); GOT 26 U/L (10-34); GPT 22 U/L (10-44); MAGNESIUM 2.2 mg/dL (1.5-2.7); PHOSPHORUS 3.2 mg/dL (2.7-4.5); POTASSIUM 4.2 mmol/L (3.5-5.1); SODIUM 140 mmol/L (136-145); TCO2 25 mmol/L (25-35); TOTAL BILIRUBIN 0.73 mg/dL (0.20-1.00); TOTAL PROTEIN 7.1 g/dL (6.3-8.3)
[2018-10-28] MEDS: SINEMET 25/100 PO SCH ×4 (09:20→21:36)
[2018-10-28] MEDS: FLOMAX PO SCH ×2 (09:20→21:35)
[2018-10-28] MEDS: NON-FORMULARY MED PEG SCH (09:20)
[2018-10-28] MEDS: COMTAN PEG SCH ×4 (09:20→21:35)
[2018-10-28] MEDS: ARICEPT PO SCH (09:20)
[2018-10-28] MEDS: BACITRACIN OINTMENT TOP SCH (09:21)
--- NOTE | 2018-10-28 11:31 | PROGRESS NOTE ---
DATE: 10/28/2018 SUBJECTIVELY: This morning Mr Kumar refers to be doing well. There was a female family friend at the bedside. Mr Kumar was requesting to know when he is going to be discharged. OBJECTIVE: Vital signs: Blood pressure is 142/86, pulse of 73, respirations 14, temperature 97.9 degrees. On general exam, Mr. Kumar is a 73-year-old male. He was sitting in the chair, no distress. Mucosa is pink and moist. Anicteric. Acyanotic. Neck is supple. Chest was clear. Cardiovascular: Regular rate and rhythm. Abdomen is soft. There is a PEG tube in place. There is a binder over the PEG tube. Extremities: No pedal edema. Central Nervous System: Patient is awake, alert. Voice still a little garbled, but stronger than before. LABORATORY DATA: Chemistry is reviewed. It is completely normal. ASSESSMENT: 1. Severe oropharyngeal dysphagia secondary to advanced Parkinson. The patient failed multiple barium swallows. He is currently status post PEG tube placement. He is tolerating tube feedings. 2. Advanced Parkinson disease. Patient is on medications. Currently stable. 3. History of BPH. 4. Generalized weakness and deconditioning. Physical Therapy is on board. 5. Drug-induced thrombocytopenia, improved. DISPOSITION: Pending SNF placement. cc: Radu Zavala MD
[2018-10-28] MEDS: PEPCID IV SCH (13:10)
[2018-10-28] MEDS: PATIENT'S OWN MED PO SCH (21:36)
[2018-10-28] MEDS: SEROQUEL PO PRN (21:43)
[2018-10-29] MEDS: PEPCID IV SCH ×2 (00:16→13:00)
[2018-10-29] MEDS: COMTAN PEG SCH ×4 (09:05→22:01)
[2018-10-29] MEDS: BACITRACIN OINTMENT TOP SCH (09:05)
[2018-10-29] MEDS: ARICEPT PO SCH (09:05)
[2018-10-29] MEDS: FLOMAX PO SCH ×2 (09:05→22:01)
[2018-10-29] MEDS: SINEMET 25/100 PO SCH ×4 (09:05→22:01)
[2018-10-29] MEDS: NON-FORMULARY MED PEG SCH (09:05)
--- NOTE | 2018-10-29 14:27 | PROGRESS NOTE ---
DATE: 10/29/2018 SUBJECTIVE: This morning Mr. Kumar was sitting up in the chair. A family female friend was at the bedside. The was not there. Mr. Garcia referred to be doing well, and wanted to know when he will be discharged. I understand the family is planning is trying to get him into rehab. OBJECTIVE: Vital Signs: Blood pressure is 153/71, pulse of 60's, respirations 15, and temperature 99.1 degrees. Patient is saturating 98%. General: Mr. Kumar is a 73-year-old elderly male. He is in bed in no distress. HEENT: Mucosa is pink and moist. Anicteric. Acyanotic. Neck: Supple. Chest: Clear to auscultation. Cardiovascular: Regular rate and rhythm. Abdomen: Soft. PEG tube is in place. There is a binder over the abdominal wall. Extremities: No pedal edema. FIREFIGHTER: Patient is awake and alert. Follows basic commands. LABORATORY: No new lab work. ASSESSMENT: 1. Severe oropharyngeal dysphagia secondary to advanced Parkinson. 2. History of advanced Parkinson's. 3. Generalized weakness and deconditioning. 4. Drug-induced thrombocytopenia improved. 5. History of BPH. 6. Previous PEG tube site infection. This has been treated. Disposition. Pending SNF placement. cc: Radu Zavala MD MTDShalini
[2018-10-29] MEDS: PATIENT'S OWN MED PO SCH (22:01)
[2018-10-29] MEDS: SEROQUEL PO PRN (22:01)
[2018-10-30] MEDS: PEPCID IV SCH ×3 (00:37→23:28)
[2018-10-30] MEDS: SODIUM CHLORIDE 0.9% INJ SCH ×2 (00:38→23:28)
[2018-10-30] MEDS: COMTAN PEG SCH ×4 (08:29→21:51)
[2018-10-30] MEDS: FLOMAX PO SCH ×2 (08:29→21:51)
[2018-10-30] MEDS: ARICEPT PO SCH (08:29)
[2018-10-30] MEDS: SINEMET 25/100 PO SCH ×4 (08:29→21:50)
[2018-10-30] MEDS: BACITRACIN OINTMENT TOP SCH (08:30)
[2018-10-30] MEDS: NON-FORMULARY MED PEG SCH (08:33)
--- NOTE | 2018-10-30 10:53 | PROGRESS NOTE ---
DATE: 10/30/2018 SUBJECTIVE: This morning, Mr. Kumar referred to be doing okay. There was a CT at the bedside at the time of the encounter. No new complaints. The patient is still pending SNF placement. OBJECTIVE: Vital Signs: Blood pressure is 118/69, pulse of 74, respirations 13, temperature 99.1 degrees. General: Mr. Kumar is a 73-year-old, elderly, male. He is in bed. No distress. HEENT: Mucosa is pink and moist. Anicteric. Acyanotic. Neck: Supple. Chest: Clear to auscultation. Cardiovascular: Regular rate and rhythm. Abdomen: Soft. There is a binder over the abdominal wall. PEG tube is in place. Extremities: No pedal edema. APPLICATION TECHNICIAN: The patient is awake, alert. Follows basic commands. LABORATORY DATA: No lab work for this morning. ASSESSMENT: 1. Severe oropharyngeal dysphagia secondary to advanced Parkinson's. The patient is status post percutaneous endoscopic gastrostomy tube placement. 2. Advanced Parkinson's disease. The patient continues to be on his medications. 3. Generalized weakness and deconditioning. Physical Therapy is on board. The patient was evaluated yesterday. 4. History of benign prostatic hypertrophy. 5. Previous percutaneous endoscopic gastrostomy tube site infection. The patient has finished antimicrobial therapy. 6. Percutaneous endoscopic gastrostomy tube feedings. Disposition is pending nursing home facility placement. cc: MD LUTHER Graves
[2018-10-30] MEDS: PATIENT'S OWN MED PO SCH (21:51)
[2018-10-30] MEDS: SEROQUEL PO PRN (21:51)
[2018-10-31] MEDS: FLOMAX PO SCH (10:25)
[2018-10-31] MEDS: NON-FORMULARY MED PEG SCH (10:26)
[2018-10-31] MEDS: COMTAN PEG SCH ×2 (10:26→14:08)
[2018-10-31] MEDS: SINEMET 25/100 PO SCH ×2 (10:27→14:08)
[2018-10-31] MEDS: ARICEPT PO SCH (10:27)
[2018-10-31] MEDS: BACITRACIN OINTMENT TOP SCH (10:27)
[2018-10-31 12:28] VITALS: BP 119/77
--- NOTE | 2018-10-31 13:31 | PROGRESS NOTE ---
DATE: 10/31/2018 SUBJECTIVE: This morning, Mr. Kumar referred to be doing fairly okay. He was just about to start physical therapy. OBJECTIVE: Vital Signs: Blood pressure is 119/77, pulse of 84, respirations are 18, temperature is 97.4 degrees. General Examination: Mr. Kumar is a 73-year-old, male. He was in bed. No distress. HEENT: Mucosa is pink and moist. Anicteric. Acyanotic. Neck: Supple. Chest: Good air entry bilaterally. No crepitations. No rhonchi. Cardiovascular: Regular rate and rhythm. Abdomen: Soft. There is a PEG tube in place with a binder over it. Extremities: No pedal edema. 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 Follows basic commands. Laboratory Data: None for today. ASSESSMENT: 1. Severe oropharyngeal dysphagia secondary to advanced Parkinson's. Patient is status post percutaneous endoscopic gastrostomy tube placement. 2. Advanced Parkinson's, on medications, stable. 3. Generalized weakness and deconditioning. Physical therapy is on board. 4. History of benign prostatic hypertrophy. 5. Previous percutaneous endoscopic gastrostomy tube site infection. Patient has finished antimicrobial therapy. DISPOSITION: [facility] after the family, including the , the daughter, and the son-in-law requested that we reach out to the [facility] since Mr. [facility] is a . I did call and spoke with the [facility] on-call and he requested that we notify our case management to call them today. I have already notified our case management to call and follow up on this. Mr. Kumar is also pending insurance approval to go to a rehab. cc: Radu Zavala MD
[2018-10-31] MEDS: PEPCID IV SCH (14:08)
[2018-10-31] MEDS: SODIUM CHLORIDE 0.9% INJ SCH (14:08)
--- NOTE | 2018-10-31 15:23 | DISCHARGE SUMMARY ---
ADMISSION DATE: 09/22/2018 DISCHARGE DATE: 10/31/2018 LENGTH OF STAY: Patient's length of stay was 39 days. DISPOSITION: [facility] bed for SNF. FOLLOWUP: 1. Patient's PCP, Dr. Godfrey. 2. Dr. Lewis. 3. Dr. Berg. CONSULTATION DURING THIS ADMISSION: 1. GI was initially consulted. Patient was seen by a doctor Debbie. 2. Neurology was consulted. Patient was seen by Dr. Napoles. 3. Hematology/Oncology was consulted. Patient was seen by Dr. Watson. INVASIVE PROCEDURES DONE DURING ADMISSION: PEG tube placement was done by Dr. Lewis on 2 occasions. ADMISSION DIAGNOSES: 1. Altered mental status. 2. Dysphagia. 3. Dehydration. 4. Acute kidney injury. 5. Parkinson. DIAGNOSIS AT THE TIME OF DISCHARGE: 1. Severe oropharyngeal dysphagia secondary to advanced Parkinson. The patient is status post PEG tube placement. 2. Advanced Parkinson disease. 3. Generalized weakness and deconditioning. 4. History of benign prostatic hypertrophy. 5. Status post PEG tube placement. 6. Klebsiella pneumoniae and enterococcal faecalis PEG tube site infection. This patient was completely treated during the hospital course and he finished antimicrobial therapy. 7. Acute kidney injury on presentation, resolved. 8. Hypertension. DISCHARGE MEDICATIONS: 1. Azilect 1 mg p.o. daily. 2. Citalopram 20 mg p.o. at bedtime. 3. Pantoprazole 40 mg p.o. daily. 4. Amlodipine 2.5 mg p.o. daily. 5. Seroquel 12.5 mg p.o. daily. 6. Donepezil 10 mg p.o. daily. 7. Glycopyrrolate 1 mg p.o. 3 times per day p.r.n. 8. Levodopa/carbidopa/ 9. Entacapone 200 mg 4 times per day. 10. Tamsulosin 0.4 p.o. b.i.d. 11. Nuplazid 34 mg p.o. at bedtime. PRESENTING COMPLAINT: Difficulty swallowing. HISTORY OF PRESENTING COMPLAINT: Mr. Kumar is a 73-year-old gentleman who is known to have advanced Parkinson, status post deep brain stimulator, presented to the emergency department because of difficulty swallowing. Mr. Kumar was admitted to the medical floor. HOSPITAL COURSE: Initially, Mr. Kumar was evaluated and an initial swallow evaluation was done which showed aspiration of thin liquid, delayed swallowing of pudding. The patient was recommended to be completely n.p.o. GI was consulted and a PEG tube was placed. The patient tolerated the procedure well and started getting his medications through the PEG tube. Unfortunately, during the hospital course, Mr. Kumar also developed some delirium and became slightly agitated and pulled out his PEG tube. The site became infected so he could not be getting his antiparkinson medications. The PEG tube was removed, the site was allowed to heal. The patient was started on IV antibiotics and he completed a total of 14 days. The site became completely healed. The PEG tube was reinserted and patient medications restarted again through the PEG tube. Slowly over the course of the hospital stay, Mr. Kumar became more engaged, started participating well with physical therapy. The later part of the hospital stay became complicated with disposition plan since it took a very long time for insurance to approve for his rehab placement. Fortunately, today rehab has been approved by his insurance and he is going to be discharged to [facility]. DISCHARGE INSTRUCTIONS: All the discharge instructions were discussed with him and he voiced understanding. TIME SPENT FOR DISCHARGE: 45 minutes. cc: MD Linda Graves MD Michael Kelso, MD Eston G. Norwood III, MD MTDD
== END 2018-10-31 16:54 | DRG 56 ==
LOC: ED 20:50 → SUATTDRO 09-22 03:43 → OBSVTOIN 09-22 03:43 → 3N 09-22 03:43 → INTOOBSV 09-22 03:43
PROVIDERS: ATTEND Internal Medicine
CPT/HCPCS: 36569; 71010; 71045; 74000; 74018; 74177; 74230; 80048; 80053; 80069; 80076; 80202; 81001; 82465; 82607; 82746; 82948; 83735; 84100; 84134; 84450; 84478; 85025; 85027; 85049; 85384; 85610; 85730; 87070; 87077; 87088; 87186; 92611; 93005; 93010; 94760; 94761; 96360; 96361; 97110; 97116; 97140; 97163; 97166; 97168; 97530; 97535; 99284; A9270; J0360; J0690; J0696; J1630; J2060; J2543; J3010; J3370; J3475; J3480; J7030; J7040; J7042; J7050; Q9966; Q9967; S0028; XXXXX

== ENCOUNTER 2019-01-10 07:30 | Inpatient (IN) ==
[2019-01-10 08:20] LABS: BASO# 0.02 X1000 (0.0-0.2); BASO% 0.2 % (0.0-0.8); EOS# 0.03 X1000 (0.0-0.7); EOS% 0.3 % (0.0-10.0); HEMATOCRIT 41.5 % (42.0-52.0); HEMOGLOBIN 13.2 g/dL (14.0-18.0); IMM GRAN# 0.02 X1000 (0.0-0.04); IMM GRAN% 0.2 % (0.0-0.5); LYMPH# 0.91 X1000 (1.2-3.4); LYMPH% 7.9 % (20.5-51.1); MCH 30.3 PG (27-31); MCHC 31.8 g/dL (33-37); MCV 95.4 FL (81-99); MONO# 0.47 X1000 (0.11-0.59); MONO% 4.1 % (1.7-9.3); MPV 10.9 FL (7.4-10.4); NEUT# 10.09 X1000 (1.4-6.5); NEUT% 87.3 % (42.2-75.2); PLT 189 X1000 (130-400); RBC 4.35 XMIL (4.7-6.1); RDW 14.9 % (11.5-14.5); WBC 11.54 X1000 (4.8-10.8)
[2019-01-10 08:27] LABS: INR 1.2; PROTIME 15.3 Seconds (11.0-16.0)
[2019-01-10 08:28] LABS: PTT 27.9 Seconds (22.3-41.8)
[2019-01-10] MEDS ORDERED: UNASYN 3 GM/NS 3 GM/100 ML IVPB IV ONE (08:33)
[2019-01-10] MEDS ORDERED: FLAGYL 500 MG/NS 500 MG/100 ML IVPB IV ONE (08:33)
--- NOTE | 2019-01-10 08:39 | PROVIDER DOCUMENTATION ---
HPI-Respiratory General - General Chief Complaint: Choking Stated Complaint: ASPIRATION? Time Seen by Provider: 01/10/19 07:48 Source: patient Allergies/Adverse Reactions: Patient Allergies Allergy/AdvReac Type Severity Reaction Status Date / Time No Known Allergies Allergy Verified 05/19/18 17:00 Home Medications: Home Medication List Medication Instructions Recorded Confirmed Last Taken Type Rasagiline Mesylate [Azilect] 1 mg PO DAILY 12/17/11 01/10/19 5 Days Ago History ~09/17/18 Citalopram Hydrobromide 20 mg PO HS 10/08/14 01/10/19 4 Days Ago History [Citalopram HBr] ~09/18/18 Amlodipine [Norvasc] 2.5 mg PO DAILY 11/18/15 01/10/19 4 Days Ago History ~09/18/18 Donepezil [Aricept] 10 mg PO DAILY 11/18/15 01/10/19 05/19/18 History Pantoprazole [Protonix] 40 mg PO DAILY 11/18/15 01/10/19 4 Days Ago History ~09/18/18 Carbidopa/Levodopa 1 tab 4XDAY 11/20/15 01/10/19 05/19/18 History [Carbidopa-Levodopa 25-100 Tab] Docusate Sodium [Colace] 100 mg PO DAILY #10 cap 06/16/17 01/10/19 05/19/18 Rx Pimavanserin Tartrate [Nuplazid] 34 mg PO HS 09/22/18 01/10/19 4 Days Ago History ~09/18/18 Tamsulosin HCl 0.4 cap PO BID 09/22/18 01/10/19 4 Days Ago History ~09/18/18 Quetiapine [Seroquel] 25 mg PO HS PRN PRN tab 10/31/18 01/10/19 Unknown Rx - History of Present Illness-Resp Nature of Presenting Problem: pt begain wheezing yest am, this got worse throughout day, began gurgling over night, SOB. No fever known. When arrived here, Sats in 80s on Room air. He has hx parkinsons, has feeding tube. blends his food, but he get/drinks water, sweet tea, eats cookies on his own. Will not drink liquids if have thickener. Nothing makes better nor worse. Sats came up to high 90s on NRB Quality of Pain: reports: none Severity in ED: reports: severe Timing: reports: getting worse Review of Systems - Adult - REVIEW OF SYSTEMS - ADULT Constitutional: reports: no symptoms reported Eyes: reports: no symptoms reported Ears, Nose, Mouth & Throat: reports: no symptoms reported Cardiovascular: reports: other (did c/o CP this am) Respiratory: reports: see HPI Gastrointestinal: reports: no symptoms reported Genitourinary: reports: no symptoms reported Musculoskeletal: reports: no symptoms reported Integumentary: reports: no symptoms reported Neurological: reports: no symptoms reported Psychiatric: reports: no symptoms reported Endocrine: reports: no symptoms reported Hematologic/Lymphatic: reports: no symptoms reported Allergic/Immunologic: reports: no symptoms reported Past History - Adult - PAST MEDICAL HISTORY-ADULT Review of Records: reports: Medications Reviewed Major Childhood Illnesses: reports: denies history Cardiovascular: reports: HTN Respiratory: reports: denies history Gastrointestinal: reports: denies history Obstetrical/Gynecological: reports: denies history Genitourinary: reports: denies history Musculoskeletal: reports: denies history Neurological: reports: Parkinson's Endocrine/Immune: reports: denies history Other Conditions: reports: denies history - PRIOR SURGERIES/PROCEDURES Surgical/Procedure History: reports: other (AAA repair, TURP) - PRIOR HOSPITALIZATIONS Prior Hospitalizations: reports: none - IMMUNIZATION STATUS Childhood Immunizations: See Nurse Assessment Flu Vaccine: See Nurse Assessment - FAMILY HISTORY Family History: reviewed, not pertinent Physical Exam-General - PHYSICAL EXAM-ADULT Initial Vital Signs Reviewed: Yes - CONSTITUTIONAL General Appearance: alert, mild distress - EYES Eyes: PERRL/EOMI, pink conjunctivae - HEAD, EARS, NOSE, MOUTH & THROAT HENMT: normocephalic/atraumatic, moist mucous membranes, normal ENT inspection, pharynx normal - NECK Neck: full range of motion, supple, normal inspection - RESPIRATORY Respiratory: respiratory distress, crackles (L base) - CARDIOVASCULAR Cardiovascular: regular rate, rhythm, no edema, no murmur - GASTROINTESTINAL (ABDOMEN) Abdominal Exam: non tender, soft - MUSCULOSKELETAL Back Exam: normal inspection, no CVA tenderness, no vertebral tenderness Extremity: normal range of motion, non-tender, normal inspection - SKIN Integumentary: normal color, normal turgor, warm/dry - NEUROLOGIC Neurologic: director of cath lab II-XII nml as tested, grossly normal, no motor/sensory deficits - PSYCHIATRIC Psych/Mental Status: other (non verbal) Progress - PLAN OF CARE/RESULTS Progress/Plan/Lab Results: Vital Signs - 8 hr 01/10/19 11:32 01/10/19 12:02 01/10/19 12:10 Pulse Rate 65 Respiratory Rate 16 Blood Pressure 114/68 120/69 O2 Sat by Pulse Oximetry 100 98 96 01/10/19 12:32 01/10/19 13:02 Pulse Rate 68 64 Respiratory Rate 18 16 Blood Pressure 112/70 122/73 O2 Sat by Pulse Oximetry 97 98 01/10/19 12:09 - Final Sputum Laboratory Results - last 24 hr 01/10/19 01/10/19 01/10/19 07:53 07:53 07:53 WBC 11.54 H RBC 4.35 L Hgb 13.2 L Hct 41.5 L MCV 95.4 MCH 30.3 MCHC 31.8 L RDW Std Deviation 14.9 H Plt Count 189 MPV 10.9 H Immature Gran % (Auto) 0.2 Neut % (Auto) 87.3 H Lymph % (Auto) 7.9 L [place] % (Auto) 4.1 Eos % (Auto) 0.3 Baso % (Auto) 0.2 Immature Gran # (Auto) 0.02 Neut # (Auto) 10.09 H Lymph # (Auto) 0.91 L [place] # (Auto) 0.47 Eos # (Auto) 0.03 Baso # (Auto) 0.02 Segmented Neutrophils 88 H Lymphocytes 7 L Monocytes 4 Eosinophils 1 Anisocytosis 1+ Macrocytosis 1+ PT 15.3 INR 1.20 PTT (Actin FS) 27.9 Specimen Type Sample Site pH pCO2 pO2 HCO3 Base Excess Oxyhemoglobin ABG O2 Sat (Calculated) ABG O2 Saturation ABG Carboxyhemoglobin ABG Methemoglobin Zach Test A-a O2 Difference Total Hemoglobin Lactate Blood Gas Modality FiO2 % Sodium 145 Potassium 4.6 Chloride 107 Carbon Dioxide 24 L Anion Gap 14 BUN 24 H Creatinine 1.1 Estimated GFR/1.73 m2 > 60 BUN/Creatinine Ratio 22 Glucose 117 H Calculated Osmolality 294 Calcium 9.2 Total Bilirubin 1.50 H AST 18 ALT < 5 L Alkaline Phosphatase 58 Creatine Kinase 32 Troponin T Total Protein 8.0 Albumin 3.7 Globulin 4.3 Albumin/Globulin Ratio 0.9 Plasma Lactate Urine Source Urine Color Urine Turbidity Urine pH Ur Specific [place] Urine Protein Ur Glucose (Stick) Ur Ketones (Stick) Urine Blood Urine Nitrite Urine Bilirubin Urobilinogen Dipstick Urine Leukocytes Urine WBC (Auto) Urine RBC (Auto) U Epithel Cells (Auto) Urine Bacteria (Auto) 01/10/19 01/10/19 01/10/19 07:53 07:53 09:10 WBC RBC Hgb Hct MCV MCH MCHC RDW Std Deviation Plt Count MPV Immature Gran % (Auto) Neut % (Auto) Lymph % (Auto) [place] % (Auto) Eos % (Auto) Baso % (Auto) Immature Gran # (Auto) Neut # (Auto) Lymph # (Auto) [place] # (Auto) Eos # (Auto) Baso # (Auto) Segmented Neutrophils Lymphocytes Monocytes Eosinophils Anisocytosis Macrocytosis PT INR PTT (Actin FS) Specimen Type Sample Site pH pCO2 pO2 HCO3 Base Excess Oxyhemoglobin ABG O2 Sat (Calculated) ABG O2 Saturation ABG Carboxyhemoglobin ABG Methemoglobin Zach Test A-a O2 Difference Total Hemoglobin Lactate Blood Gas Modality FiO2 % Sodium Potassium Chloride Carbon Dioxide Anion Gap BUN Creatinine Estimated GFR/1.73 m2 BUN/Creatinine Ratio Glucose Calculated Osmolality Calcium Total Bilirubin AST ALT Alkaline Phosphatase Creatine Kinase Troponin T < 0.010 Total Protein Albumin Globulin Albumin/Globulin Ratio Plasma Lactate 1.7 Urine Source CATH Urine Color YELLOW Urine Turbidity CLEAR Urine pH 5.5 Ur Specific Canadian 1.026 Urine Protein 30 A Ur Glucose (Stick) NEGATIVE Ur Ketones (Stick) NEGATIVE Urine Blood NEGATIVE Urine Nitrite NEGATIVE Urine Bilirubin NEGATIVE Urobilinogen Dipstick NORMAL Urine Leukocytes NEGATIVE Urine WBC (Auto) <10 Urine RBC (Auto) <10 U Epithel Cells (Auto) <10 Urine Bacteria (Auto) NEGATIVE 01/10/19 11:55 WBC RBC Hgb Hct MCV MCH MCHC RDW Std Deviation Plt Count MPV Immature Gran % (Auto) Neut % (Auto) Lymph % (Auto) [place] % (Auto) Eos % (Auto) Baso % (Auto) Immature Gran # (Auto) Neut # (Auto) Lymph # (Auto) [place] # (Auto) Eos # (Auto) Baso # (Auto) Segmented Neutrophils Lymphocytes Monocytes Eosinophils Anisocytosis Macrocytosis PT INR PTT (Actin FS) Specimen Type ARTERIAL Sample Site R RADIAL pH 7.40 pCO2 39 pO2 108 H HCO3 24.5 Base Excess -0.5 Oxyhemoglobin 96.0 ABG O2 Sat (Calculated) 18.6 ABG O2 Saturation 99.4 ABG Carboxyhemoglobin 2.30 ABG Methemoglobin 1.2 Zach Test YES A-a O2 Difference 556.0 Total Hemoglobin 13.7 Lactate 1.00 Blood Gas Modality NRB FiO2 % 100.0 Sodium Potassium Chloride Carbon Dioxide Anion Gap BUN Creatinine Estimated GFR/1.73 m2 BUN/Creatinine Ratio Glucose Calculated Osmolality Calcium Total Bilirubin AST ALT Alkaline Phosphatase Creatine Kinase Troponin T Total Protein Albumin Globulin Albumin/Globulin Ratio Plasma Lactate Urine Source Urine Color Urine Turbidity Urine pH Ur Specific [place] Urine Protein Ur Glucose (Stick) Ur Ketones (Stick) Urine Blood Urine Nitrite Urine Bilirubin Urobilinogen Dipstick Urine Leukocytes Urine WBC (Auto) Urine RBC (Auto) U Epithel Cells (Auto) Urine Bacteria (Auto) Orders Category Date Time Status Admit - [facility] Routine AdmDCTranf 01/10/19 12:09 Active Activity - Up with Assistance ORDERED Care 01/10/19 12:09 Active Apply Mechanical Device [QM] ORDERED Care 01/10/19 12:17 Active Cardiac Monitoring DIRECTED Care 01/10/19 08:04 Completed Elevate Head of Bed DIRECTED Care 01/10/19 12:17 Active Encourage Fluids DIRECTED Care 01/10/19 12:17 Active [place] Insertion ORDERED Care 01/10/19 08:53 Completed IV Insertion ORDERED Care 01/10/19 08:04 Completed Intake and Output-Strict Q 8-HR ASSESS Care 01/10/19 12:17 Active Notify MD of + Sepsis Screen NOW Care 01/10/19 08:04 Completed Notify Physician As Ordered Care 01/10/19 08:04 Active Nursing- Assist w/ IS as order ORDERED Care 01/10/19 12:17 Active Nursing- MD Consult Request ROUTINE Care 01/10/19 12:09 Active Resuscitation Status Routine Care 01/10/19 12:02 Ordered Turn, Cough and Deep Breathe Q2HR Care 01/10/19 12:17 Active Vital Signs Order Q 4-HR ASSESS Care 01/10/19 12:17 Active Z-Document. for Tele Applied ORDERED Care 01/10/19 12:17 Active Nutrition [Dietitian Consult] Routine Cons 01/10/19 12:09 Active Physician/Provider Consults Routine Cons 01/10/19 12:09 Ordered Social Service Consult Routine Cons 01/10/19 12:17 Active Wound Care/ET Consult Routine Cons 01/10/19 12:47 Active CHEST-1 VIEW [RAD] Stat Exams 01/10/19 08:04 Completed CHEST-PORTABLE [RAD] Routine Exams 01/11/19 07:00 Ordered Chest [CT THORAX W/O CONTRAST] [CT] Stat Exams 01/10/19 10:14 Completed ABG [RESP] Routine Lab 01/10/19 11:55 Completed BLOOD CULTURE [BLDCUL] Stat Lab 01/10/19 09:23 Results CBC WITH DIFF [HEME] Q24H Lab 01/11/19 06:00 Ordered CBC WITH DIFF [HEME] Q24H Lab 01/12/19 06:00 Ordered CBC WITH DIFF [HEME] Q24H Lab 01/13/19 06:00 Ordered CBC WITH DIFF [HEME] Q24H Lab 01/14/19 06:00 Ordered CBC WITH DIFF [HEME] Q24H Lab 01/15/19 06:00 Ordered CBC WITH DIFF [HEME] Q24H Lab 01/16/19 06:00 Ordered CBC WITH DIFF [HEME] Stat Lab 01/10/19 07:53 Completed CK PROFILE [SP CHEM] Stat Lab 01/10/19 07:53 Completed COMPREHENSIVE METABOLIC PANEL [CHEM] Q24H Lab 01/11/19 06:00 Ordered COMPREHENSIVE METABOLIC PANEL [CHEM] Q24H Lab 01/12/19 06:00 Ordered COMPREHENSIVE METABOLIC PANEL [CHEM] Q24H Lab 01/13/19 06:00 Ordered COMPREHENSIVE METABOLIC PANEL [CHEM] Q24H Lab 01/14/19 06:00 Ordered COMPREHENSIVE METABOLIC PANEL [CHEM] Q24H Lab 01/15/19 06:00 Ordered COMPREHENSIVE METABOLIC PANEL [CHEM] Q24H Lab 01/16/19 06:00 Ordered COMPREHENSIVE METABOLIC PANEL [CHEM] Stat Lab 01/10/19 07:53 Completed LACTATE, PLASMA [CHEM] Lab 01/10/19 14:54 Completed LACTATE, PLASMA [CHEM] Lab 01/10/19 19:00 Received LACTATE, PLASMA [CHEM] Q3H Lab 01/10/19 07:53 Completed LEGIONELLA AG URINE [POE] Routine Lab 01/10/19 14:22 Received PROTIME WITH INR [COAG] Stat Lab 01/10/19 07:53 Completed PTT [COAG] Stat Lab 01/10/19 07:53 Completed SPUTUM CULTURE WITH GRAM STAIN [] Routine Lab 01/10/19 12:09 Results STREP PNEUMO AG URINE [[place]] Routine Lab 01/10/19 14:22 Received TROPONIN T Stat Lab 01/10/19 07:53 Completed URINALYSIS W/POSS RFLX CULT [URINALYSIS] Stat Lab 01/10/19 09:10 Completed 0.9% Sodium Chloride Inj [Ns] 1,000 ml Med 01/10/19 12:15 Discontinued IV 50 mls/hr Acetylcysteine 20% [Mucomyst 20%] Med 01/10/19 19:30 Active 3 ml INH RTBID Albuterol 2.5MG/Ipratrop 0.5MG [Duoneb (A & A)] Med 01/10/19 11:30 Active 3 ml INH RTQ4H Ampicillin/Sulbactam 3 gm/Ns [Unasyn 3 gm/Ns] Med 01/10/19 08:33 Discontinued 3 gm in 100 ml IV NOW Budesonide [Pulmicort] Med 01/10/19 19:30 Active 0.5 mg INH RTBID Carbidopa/Levodopa [Sinemet 25/100] Med 01/10/19 13:00 Active 1 each PEG 4XDAY Citalopram [Celexa] Med 01/10/19 21:00 Active 20 mg PO HS Donepezil [Aricept] Med 01/11/19 09:00 Active 10 mg PO DAILY Lactated Ringers Inj [Lr] 1,000 ml Med 01/10/19 11:13 Active IV 50 mls/hr Lactated Ringers Inj [Lr] 1,000 ml Med 01/10/19 11:13 Discontinued IV 999 mls/hr Menthol/Zinc Oxide Ointment [Calmoseptine Ointment] Med 01/10/19 10:04 Discontinued 1 gm TOP NOW ONE Metronidazole 500 mg/Ns [Flagyl 500 mg/Ns] Med 01/10/19 08:33 Discontinued 500 mg in 100 ml IV NOW Metronidazole 500 mg/Ns [Flagyl 500 mg/Ns] Med 01/10/19 13:00 Active 500 mg in 100 ml IV Q6H Pantoprazole [Protonix] Med 01/10/19 11:15 Active 40 mg PO DAILY Patient's Own Med Med 01/10/19 21:00 Active 1 each PO HS Pharmacy Order [Vancomycin IV Per Pharmacy] Med 01/10/19 11:15 Active 1 each MISC DIRECTED Piperacillin/Tazobactam [Zosyn] 3.375 gm Med 01/10/19 16:00 Active 0.9% Sodium Chloride Inj [Ns] 50 ml IV Q6H Quetiapine [Seroquel] Med 01/10/19 11:10 Active 25 mg PO HS PRN PRN Rasagiline Mesylate [Azilect] Med 01/11/19 09:00 Active 1 mg PO DAILY Tamsulosin [Flomax] Med 01/10/19 21:00 Active 0.4 mg PO BID Vancomycin 1,500 mg Med 01/10/19 14:00 Discontinued 0.9% Sodium Chloride Inj [Ns] 250 ml IV ONCE Aerosol Treatments Routine Ot 01/10/19 11:06 Completed Aerosol Treatments Routine Ot 01/10/19 12:09 Completed Aerosol Treatments Stat Ot 01/10/19 11:06 Completed Incentive Spirometer Routine Ot 01/10/19 12:17 Completed Oxygen Device Routine [facility] 01/10/19 12:09 Completed Oxygen Device Stat [facility] 01/10/19 08:04 Completed Oxygen Device Stat Ot 01/10/19 08:22 Completed Pulse Oximetry Routine Ot 01/10/19 12:17 Completed Telemetry [OM.EQ] Routine [facility] 01/10/19 12:17 Active Transfer/Admit Order [TRANSFER] Routine Transfer 01/10/19 12:02 Completed Result Diagrams: 01/10/19 07:53 01/10/19 07:53 Departure - Departure Date of Disposition Decision: 01/10/19 Time of Disposition Decision: 11:30 DIAGNOSIS: Aspiration pneumonia, Hypoxia Disposition: ADMITTED INPATIENT 09 Certified Medical Emergency: Emergent Condition: Fair - Critical Care Note This patient required my direct & personal management of CC.: No Attestation - Physician/ GLENIS Attestation Patient care was provided by Advanced Practice Provider:: No The physician spent face to face time with patient:: Yes Advanced Practice Provider documentation review:: Supervising physician onsite and consulted in the evaluation and care of this patient. The physician did have a face to face encounter with the patient.
[2019-01-10 08:41] LABS: AGAP 14; ALB/GLOB RATIO 0.9; ALBUMIN 3.7 g/dL (3.5-5.0); ALKALINE PHOSPHATASE 58 U/L (32-122); BUN 24 mg/dL (8-22); CALCIUM 9.2 mg/dL (8.8-10.2); CHLORIDE 107 mmol/L (98-107); CK PROFILE 32 U/L (24-204); COSMO 294; CREATININE 1.1 mg/dL (0.7-1.2); ESTIMATED GFR > 60; GLUCOSE 117 mg/dL (70-104); GOT 18 U/L (10-34); GPT < 5 U/L (10-44); POTASSIUM 4.6 mmol/L (3.5-5.1); SODIUM 145 mmol/L (136-145); TCO2 24 mmol/L (25-35)
--- NOTE | 2019-01-10 09:08 | Diag Imaging Result Doc PS360 ---
EXAM: CHEST-1 VIEW INDICATION: possible aspiration TECHNIQUE: One view COMPARISON: 01/02/2019 FINDINGS: COPD changes are noted. There is mild diffuse interstitial thickening similar to the previous study suggesting a background of mild fibrosis. There is subsegmental atelectasis at the mid and lower lung zone on the right. There is vague increased opacity at the left lung base likely representing atelectasis versus mild infiltrate. There is no discrete pleural fluid collection or pneumothorax. The cardiomediastinal silhouette and central vasculature are grossly unremarkable. IMPRESSION: Diffuse mild interstitial thickening, atelectasis at the right lower lung zone, and vague increased opacity at the left lung base suggesting either atelectasis or mild infiltrate. Electronically signed by Jony Alex 01/10/2019 9:06 AM
[2019-01-10 09:29] LABS: URINE SOURCE CATH
[2019-01-10 09:37] LABS: BILIRUBIN URINE NEGATIVE (NEGATIVE); BLOOD URINE NEGATIVE (NEGATIVE); COLOR YELLOW; GLUCOSE URINE NEGATIVE (NEGATIVE); KETONE URINE NEGATIVE (NEGATIVE); LEUKOCYTES URINE NEGATIVE (NEGATIVE); NITRITE URINE NEGATIVE (NEGATIVE); PH URINE 5.5; PROTEIN URINE 30 mg/dL (NEGATIVE); SP GRAVITY URINE 1.026; TURBIDITY URINE CLEAR (CLEAR); UROBILINOGEN URINE NORMAL (NORMAL)
[2019-01-10 09:38] LABS: UR EPITHELIAL CELLS <10 /HPF (<10); URINE BACTERIA NEGATIVE /HPF; URINE RBC <10 /HPF (<10); URINE WBC <10 /HPF (<10)
[2019-01-10 09:53] LABS: EOS 1 % (1-10); LYMPHS 7 % (21-51); MONO 4 % (1-9); SEGS 88 % (42-75)
[2019-01-10 09:54] LABS: ANISOCYTOSIS 1+
[2019-01-10] MEDS ORDERED: CALMOSEPTINE OINTMENT TOP ONE (10:04)
[2019-01-10] MEDS ORDERED: LR 1,000 ML IV ONE ×2 (11:13)
[2019-01-10] MEDS ORDERED: VANCOMYCIN IV PER PHARMACY MISC SCH (11:15)
--- NOTE | 2019-01-10 11:25 | Diag Imaging Result Doc PS360 ---
CT THORAX W/O CONTRAST - 01/10/2019 INDICATION: sob COMPARISON: Previous chest x-rays FINDINGS: There is advanced COPD. No adenopathy. Heart size is top normal. There is advanced triple-vessel calcified coronary artery disease. There is moderate vascular disease of the aortic arch and descending thoracic aorta. There is a right renal cyst. Otherwise no acute abnormality in the upper abdomen. There are trace pleural effusions. There is severe multifocal fluid opacification of several right-sided bronchi, including the interlobar bronchus and many segmental basilar bronchi. There is also some fluid opacification of left lower lobe segmental bronchi. There are some small to moderate patchy infiltrates in the lung bases worst in the lower lobes bilaterally. There are moderate degenerative changes of the spine. No acute or suspicious bony lesion. IMPRESSION: 1. Fluid/mucus opacification of several airways bilaterally. 2. Multifocal infiltrates in the lung bases, nonspecific. Trace pleural effusions. 3. Advanced COPD. This exam was performed using automated exposure control, adjustment of mA or kV according to patient size, and/or use of iterative reconstruction technique Electronically signed by Taye Hoyt 01/10/2019 11:22 AM
[2019-01-10] MEDS: DUONEB (A & A) INH SCH ×5 (11:30→23:20)
[2019-01-10 12:06] LABS: ALLEN TEST YES; BE -0.5 mmoll (-3.0-3.0); BLOOD TYPE ARTERIAL; HCO3-(ACT) 24.5 mmoll (20.0-26.0); METHB 1.2 % (0.0-1.5); O2(CT) 18.6 mL/dL (15.0-23.0); PCO2(98.6) 39 mmHg (35-45); PO2(98.6) 108 mmHg (60-100); SAMPLE BLOOD; SAO2 99.4 % (95.0-100.0); THB 13.7 g/dL (11.5-17.4)
[2019-01-10 12:07] LABS: MODALITY NRB
[2019-01-10] MEDS ORDERED: NS 1,000 ML IV SCH (12:15)
--- NOTE | 2019-01-10 12:42 | HISTORY AND PHYSICAL ---
ADDENDUM: I agree with most components of the history, physical, and plan. In brief, Mr. Kumar is a 73-year-old, man with a past medical history of Parkinson's disease with progressive oropharyngeal dysphagia, status post PEG tube, a recent prolonged hospitalization for displaced PEG tube leading to intra-abdominal wall infection and IV antibiotics, and then physical deconditioning, drug-induced thrombocytopenia, who comes in with chief complaints of wheeze and shortness of breath since about 24 hours' duration. Apparently, the patient was not supposed to be eating by mouth because of severe dysphagia. However, considering his wishes, family was feeding him by mouth. Yesterday, he was drinking water but he was not able to swallow well and he has been having coughing since then, following which he had started wheezing. His wheezing and shortness of breath did not get better so he was brought to the emergency room. In the emergency room, he was found to have oxygen saturation of 80% on room air, so he was started on a nonrebreather mask. The hospitalist team was consulted for further management. At the time of my evaluation, the patient appears rather more comfortable, not in any acute distress. Family is at the bedside. The patient's informed me that she has been having intermittent cough, though his temperature was 99 degrees at maximum. The patient is currently not verbalizing. He is alert though. VITALS: Temperature of 97.9 degrees, pulse of 65, respiratory rate 16, his blood pressure is 120/69. He is saturating 96% on 100% Venturi mask. PHYSICAL EXAMINATION: HEENT: Oral cavity is moist. RESPIRATORY: He does have air entry bilaterally equal. Bilateral end-expiratory wheezes. No rhonchi. Inspiratory crackles, bilateral inframammary region. CARDIOVASCULAR: S1, S2 normal. Not tachycardic. No murmur, rub, or gallop. ABDOMEN: Scaphoid, soft, nontender. PEG tube site appears to be not inflamed. EXTREMITIES: No lower extremity edema. NEUROLOGIC: He is alert and oriented x3. LABS: Suggestive of leukocytosis, normocytic anemia, normal platelet count. ABG suggestive of no hypoxia on 100 percent nonrebreather mask. His BMP is also largely unremarkable. Blood cultures are in lab. Chest x-ray suggests bilateral infiltrate. Chest CT suggests bilateral pleural effusion, fluid mucus opacification of several airways bilaterally, multifocal infiltrate at lung bases, and advanced COPD. ASSESSMENT AND PLAN: 1. Acute hypoxic respiratory failure. 2. Bilateral aspiration pneumonia. 3. Severe oropharyngeal dysphagia due to Parkinson's disease, status post percutaneous endoscopic gastrostomy tube. 4. History of benign prostatic hypertrophy. PLAN: I will admit the patient to intensive care unit considering his profound hypoxia. I will give him intravenous fluids. I will start him on intravenous antibiotics. I will resume most of his home medications for Parkinson's disease as well as intermittent agitation. His code status is Do Not Resuscitate level 1 as per my nurse practitioner discussion with the family. Plan of care extensively discussed with the patient and family members at bedside. Their questions have been answered. More than 30 minutes of critical care time has been spent in taking care of this patient. cc: Sathya Ybarra MD
[2019-01-10] MEDS ORDERED: VANCOMYCIN 1,500 MG in NS 250 ML IV ONE (14:00)
--- NOTE | 2019-01-10 14:50 | HISTORY AND PHYSICAL ---
PRIMARY CARE PROVIDER: Linda Godfrey MD. CHIEF COMPLAINT: Shortness of breath and rattling in the chest. HISTORY OF PRESENT ILLNESS: Mr. Larry Kumar is a 73-year-old male with a medical history of Parkinson, significant dysphagia secondary to Parkinson requiring PEG placement earlier this year, hypertension, GERD, depression who is here now with complaints of shortness of breath and found to have hypoxia. He apparently continues to eat during the day. The family tries to puree his stuff but he insisted on eating despite having the difficulties with swallowing, so he eats on a daily basis. Yesterday for breakfast he had a scrambled egg, a biscuit, and excessive amounts of water according to the sitter who is at the bedside and the who is at the bedside. He still continues to get feedings via PEG tube as well. He has an elevated white blood cell count. His ABGs are good with non-rebreather but otherwise, when he was on room air his O2 saturations were significantly low. He was immediately placed on a non- rebreather and given nebulizers. The CT of the chest reveals that he has fluid and mucus opacification of several airways bilaterally, multifocal infiltrates in the lung bases, along with advanced COPD. Given his status, resuscitation status was discussed with the at the bedside and with the patient at the bedside and she states that it is his decision. In depth conversation with the patient and he wishes to be a do not resuscitate level 1 but wishes to be continued to be treated with antibiotics. So will transfer him to the ICU to continue with treatment. PAST MEDICAL HISTORY: 1. Parkinson. 2. Hypertension. 3. GERD. 4. Agent [place] exposure. 5. Depression. 6. Frequent aspiration pneumonia secondary to dysphagia which is due to Parkinson. SURGICAL HISTORY: 1. PEG tube placement. 2. AAA repair. 3. Brain stimulating device, it is in the right chest. 4. TURP. SOCIAL HISTORY: He quit smoking 15 years ago but prior to that was a pack per day smoker. He started in his 20s. He is a [place] vet and used to drink but no drinking now. No illicit drug use. He lives at home with his . One child who is a daughter. 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 He gets assistance in walking. FAMILY HISTORY: Father had an TN in his 50s or 60s. Mother had an TN. Sister had an TN in her 50s. ALLERGIES: No known drug allergies. HOME MEDICATIONS: 1. Aricept 10 mg p.o. daily. 2. Azilect 1 mg p.o. daily. 3. Carbidopa/levodopa 25 mg/100 one tablet p.o. 4 times daily. 4. Citalopram 20 mg p.o. nightly. 5. Amlodipine 2.5 mg p.o. daily. 6. Nuplazid 34 mg p.o. nightly. 7. Protonix 40 mg p.o. daily. 8. Tamsulosin 0.4 mg p.o. twice daily. 9. Colace 100 mg p.o. daily. 10. Seroquel 25 mg p.o. p.r.n. nightly. REVIEW OF SYSTEMS: Fourteen point review of systems are complete. All were negative except for those mentioned in above HPI. He did complain of sacral discomfort and assessment revealed that it was just about a stage 1. PHYSICAL EXAMINATION: VITAL SIGNS: Temperature 97.9 degrees, heart rate 65, respiratory rate 16, blood pressure 120/69, O2 saturation 96% on Venturi mask. GENERAL: Mr. Larry Kumar is a 73-year-old male. He is in no acute distress. He is difficult to understand but he tries to answer questions appropriately. HEENT: Oral airways dry. He is atraumatic, normocephalic. Pupils are equal and reactive. Extraocular movements intact. Mucous membranes, again, are very dry. NECK: Trachea midline. CARDIOVASCULAR: S1, S2. Regular rate and rhythm. No rubs, gallops, or murmurs. No lower extremity edema. There are +2 dorsalis and radial pulses. Negative JVD or carotid bruits. PULMONARY: Coarse throughout anteriorly and posteriorly, requiring at the time of assessment 100% non-rebreather and he was mouth breathing. GI: Soft, flat, nondistended. Somewhat emaciated. The PEG tube looks like it needs some care as well, but no obvious signs of infection around it. NEUROLOGIC: Oriented x3. Followed commands. Sensory is intact. SKIN: Warm, dry, intact except for the sacrum has about a stage 1 redness on the coccyx. LABORATORY DATA: White blood cells 11,000, hemoglobin 13, hematocrit 41, platelet count 189,000. INR is 1.20, PTT is 27.9. ABGs, pH 7.40, pCO2 39, PO2 108, bicarb 24, base excess -0.5, saturation 96%, lactate 1.0; this is on 100% non-rebreather. Sodium 145, potassium 4.6, BUN 24, creatinine is 1.1, glucose 117, calcium 9.2. Bilirubin is 1.50, AST 18, ALT less than 5. CK 32. Troponin less than 0.01. Albumin 3.7, serum lactate 1.7. Urinalysis, 30 protein. IMAGING: Chest x-ray: Diffuse mid interstitial thickening atelectasis at the right lung zone and vague increased opacity at the left lung base suggesting either atelectasis or mild infiltrate. Chest CT shows fluid and mucus opacification of several airways bilaterally, multifocal infiltrates in the lung bases, trace pleural effusions, and advanced COPD. ASSESSMENT AND PLAN: 1. Aspiration pneumonia with fluid and mucus opacification in several airway, along with infiltrates in the lung bases. He will be on IV Zosyn and Flagyl. Will consult Pulmonary and will do oxygen as needed. He will also be on nebulizers. 2. Acute hypoxemic respiratory failure with chronic obstructive pulmonary disease exacerbation without CO2 retention. He is on nebulizers. He is already on antibiotics, that has been started, and we will consider doing some IV steroids. 3. Dysphagia with percutaneous endoscopic gastrostomy tube placement earlier this year. He still despite having issues with swallowing continues to eat on a daily basis and drink water, so he is likely going to be with a chronic aspiration pneumonia. We will do a nutritional consult for tube feeds. Will try to keep him n.p.o. by mouth. At home he takes Isosource 3 to 4 times a day which is 375 kilocalories in 250 mL. The family insists that despite him not needing to eat he will continued to be either way. So ways to try and keep from aspirating were discussed with the family, like sitting up 90 degrees for all intake, chin to chest, no straws, extremely slow spoonfuls. 4. Parkinson. Will continue those home medications. 5. Hypertension. Continue home medications. 6. Gastroesophageal reflux disease. Continue proton pump inhibitor. 7. Depression. Again, continue home medications. 8. Resuscitation status. Do not resuscitate level 1. Continues to want to be treated but not resuscitated if his heart was to stop or he was to stop breathing. The was at the bedside when this discussion took place. So will do a palliative care consult for goals of care. 9. Deep venous thrombosis prophylaxis. SCDs. Dictated by JOLYNN Herron for Sathya Ybarra MD cc: JOLYNN Herron MD I agree with most components of history, physical, assessment and plan. A separate addendum has been dictated. MTDD
[2019-01-10] MEDS: SINEMET 25/100 PEG SCH ×3 (15:27→20:25)
[2019-01-10] MEDS: PROTONIX PO SCH (15:27)
[2019-01-10] MEDS: FLAGYL 500 MG/NS 500 MG/100 ML IVPB IV SCH ×2 (17:12→20:24)
[2019-01-10] MEDS: ZOSYN 3.375 GM in NS 50 ML IV SCH ×2 (17:13→22:56)
[2019-01-10] MEDS: MUCOMYST 20% INH SCH (19:38)
[2019-01-10] MEDS: PULMICORT INH SCH (19:38)
[2019-01-10] MEDS: FLOMAX PO SCH (20:25)
[2019-01-10] MEDS: CELEXA PO SCH (20:25)
[2019-01-10] MEDS: PATIENT'S OWN MED PO SCH (20:26)
[2019-01-10] MEDS: SEROQUEL PO PRN (23:55)
[2019-01-11] MEDS: FLAGYL 500 MG/NS 500 MG/100 ML IVPB IV SCH (02:46)
[2019-01-11] MEDS: DUONEB (A & A) INH SCH ×6 (03:29→23:11)
[2019-01-11] MEDS: ZOSYN 3.375 GM in NS 50 ML IV SCH ×4 (05:00→21:25)
[2019-01-11 06:17] LABS: BASO# 0.03 X1000 (0.0-0.2); BASO% 0.5 % (0.0-0.8); EOS# 0.08 X1000 (0.0-0.7); EOS% 1.3 % (0.0-10.0); HEMATOCRIT 37.5 % (42.0-52.0); HEMOGLOBIN 11.7 g/dL (14.0-18.0); LYMPH# 1.05 X1000 (1.2-3.4); LYMPH% 17.3 % (20.5-51.1); MCH 30.4 PG (27-31); MCHC 31.2 g/dL (33-37); MCV 97.4 FL (81-99); MONO# 0.53 X1000 (0.11-0.59); MONO% 8.7 % (1.7-9.3); NEUT# 4.37 X1000 (1.4-6.5); NEUT% 72.2 % (42.2-75.2); PLT 172 X1000 (130-400); RBC 3.85 XMIL (4.7-6.1); RDW 14.6 % (11.5-14.5); WBC 6.06 X1000 (4.8-10.8)
--- NOTE | 2019-01-11 06:27 | Diag Imaging Result Doc PS360 ---
EXAM: CHEST-PORTABLE HISTORY: Pneumonia TECHNIQUE: Portable chest COMPARISON: 01/10/2019 FINDINGS: The lungs are well expanded. Worsening left basilar infiltrates. No cardiomegaly. No pleural effusions identified. IMPRESSION: Worsening left sided pneumonia Electronically signed by Theo Jeffers 01/11/2019 6:25 AM
[2019-01-11 06:35] LABS: AGAP 11; ALB/GLOB RATIO 0.7; ALKALINE PHOSPHATASE 48 U/L (32-122); BUN 22 mg/dL (8-22); CALCIUM 8.5 mg/dL (8.8-10.2); CHLORIDE 105 mmol/L (98-107); COSMO 283; CREATININE 0.9 mg/dL (0.7-1.2); ESTIMATED GFR > 60; GLUCOSE 111 mg/dL (70-104); GOT 13 U/L (10-34); GPT 9 U/L (10-44); POTASSIUM 4.1 mmol/L (3.5-5.1); SODIUM 140 mmol/L (136-145); TCO2 24 mmol/L (25-35); TOTAL BILIRUBIN 0.78 mg/dL (0.20-1.00); TOTAL PROTEIN 7.1 g/dL (6.3-8.3)
[2019-01-11] MEDS: PULMICORT INH SCH ×2 (08:04→19:31)
[2019-01-11] MEDS: MUCOMYST 20% INH SCH ×2 (08:04→19:31)
--- NOTE | 2019-01-11 08:49 | PROGRESS NOTE ---
DATE: 01/11/2019 INTERVAL HISTORY: No acute events overnight. His tube feeds were not started and I placed an order to start him on tube feeds. The patient is awake, alert. Denies any complaints. He states he is feeling cold. His cough is not bad. He is not short of breath. He is still needing Ventimask 50% oxygen. VITALS: Temperature of 98.4 degrees, pulse of 71, respiratory 22, blood pressure 130/70. He is saturating 99% on 40% Venturi mask. PHYSICAL EXAMINATION: General: Does not appear in any acute distress. HEENT: Oral cavity is moist. Lungs: Air entry bilaterally equal. No wheeze or rhonchi. Inspiratory crackles bilateral infrascapular region. Cardiac: S1, S2 normal. Regular. No murmur, rub, or gallop. Abdomen: Scaphoid, soft, nontender. PEG tube site appears to be not inflamed. He has urine catheter. Extremities: No lower extremity edema. Neurologic: He is alert and oriented x3. He does have Parkinson's disease and related bradykinesia and parkinsonian facies. LAB: Suggestive of resolution of leukocytosis, normocytic anemia, normal platelet count, essentially normal electrolytes. MICROBIOLOGY: Blood culture and sputum culture are in lab. IMAGING: Chest x-ray performed today has worsening left-sided pneumonia. ASSESSMENT AND PLAN: 1. Acute hypoxic respiratory failure due to bilateral lower lobe aspiration pneumonia due to oral ingestion despite oropharyngeal dysphagia. Continue oxygenation to maintain saturation more than 94%, intravenous vancomycin and intravenous Zosyn. I will also continue him on acetylcysteine. I will start him on incentive spirometry and physical therapy. I will keep him n.p.o. for now. 2. History of Parkinson's disease with severe oropharyngeal dysphagia status post PEG tube. Dietitian has been consulted to resume PEG tube feed. I will resume his home medication of levodopa carbidopa, rasagiline. I will also continue his home citalopram, donepezil, Nuplazid. 3. History of benign prostatic hypertrophy. I will remove Boyer catheter since his lactate was normal and he appears to be well rehydrated and start him on his home tamsulosin. 4. Continue pantoprazole for GERD. I will also start him on enoxaparin for DVT prophylaxis. DISPOSITION: Continue to monitor patient inside ICU. If he continues to do well in the afternoon, I may consider transferring him to PVC unit. Plan of care discussed with nursing team. Their questions have been answered. cc: Sathya Ybarra MD
[2019-01-11] MEDS: ARICEPT PO SCH (09:23)
[2019-01-11] MEDS: FLOMAX PO SCH ×2 (09:23→20:40)
[2019-01-11] MEDS: SINEMET 25/100 PEG SCH ×4 (09:23→20:40)
[2019-01-11] MEDS: PROTONIX PO SCH (09:23)
[2019-01-11] MEDS: LOVENOX SUBQ SCH (09:29)
[2019-01-11] MEDS: RASAGILINE MESYLATE 1 MG PO SCH (09:35)
--- NOTE | 2019-01-11 13:59 | PULMONOLOGY CONSULTATION ---
DATE: 01/11/2019 REASON FOR CONSULTATION: Aspiration pneumonia and respiratory failure. HISTORY OF PRESENT ILLNESS: Mr. Kuamr is a 73-year-old male with Parkinson's disease, 2 prior barium swallows at this hospital indicating aspiration, who has had a PEG tube placement. Despite known risks, the patient and family elected to provide him with oral intake. He presented to the emergency room yesterday with increasing shortness of breath, audible rhonchi, with oxygen saturation in the 80s. CT scan of the chest was performed, which revealed bibasilar infiltrates, advanced COPD, and mucus opacification of several airways bilaterally. The patient has been initiated on bronchodilators and has been made n.p.o. He has had some clinical improvement. PAST MEDICAL HISTORY/PROBLEM LIST: 1. COPD. 2. Recurrent aspiration pneumonia. 3. Parkinson's disease. 4. Gastroesophageal reflux. 5. History of hypertension. 6. Depression. 7. History of Agent [place] exposure. 8. Status post PEG tube placement. 9. Status post TURP. 10.Status post abdominal aortic aneurysm repair. SOCIAL HISTORY: Prior tobacco use but none for the last 15 years. No recent alcohol use. REVIEW OF SYSTEMS: Notable for increased cough, increased sputum production, and increased shortness of breath. Review of systems is otherwise negative. PHYSICAL EXAMINATION: General: Reveals a thin white male with a BMI less than 18 in no distress. Vital signs: Blood pressure 110/60, heart rate 72, respiratory rate 24, oxygen saturation 100% on 40% Ventimask. HEENT: Pupils are equal and reactive. Oropharynx appears clear. Neck: Supple. Chest: Reveals scattered rhonchi bilaterally with prolonged expiratory phase. Cardiac exam: S1, S2. Abdomen: Scaphoid and soft. Extremities: Are without edema. LABORATORY: CT scan as per HPI. White blood count on admission 11.54, hemoglobin 13.2, platelet count 189,000. Sodium 140, potassium 4.0, chloride 105, bicarbonate 24, BUN 22, creatinine 0.9. Arterial blood gas on nonrebreather yesterday at noon: pH 7.40, pCO2 of 39, pO2 of 108. IMPRESSION: A 73-year-old with known aspiration risks who has elected to pursue oral intake. The patient now has: 1. Acute hypoxemic respiratory failure. 2. Aspiration pneumonia. 3. Leukocytosis. 4. Parkinson's disease. PLAN: 1. Keep patient n.p.o. until his oxygen requirements decrease. The patient will have discuss situation with the Palliative Care team/nurse. If he continues to pursue oral intake, he will continue to aspirate. 2. Continue PEG tube nutrition for now. 3. Overall prognosis is guarded. cc: Yonathan Louis MD
[2019-01-11] MEDS: HALDOL IV PRN (17:10)
[2019-01-11] MEDS: CELEXA PO SCH (20:40)
[2019-01-11] MEDS: PATIENT'S OWN MED PO SCH (20:41)
[2019-01-11] MEDS: SEROQUEL PO PRN (21:25)
[2019-01-12] MEDS: ZOSYN 3.375 GM in NS 50 ML IV SCH ×4 (03:01→21:54)
[2019-01-12] MEDS: DUONEB (A & A) INH SCH ×6 (03:14→22:55)
[2019-01-12] MEDS ORDERED: VANCOMYCIN 1,250 MG in NS 250 ML IV SCH (04:00)
[2019-01-12 05:15] LABS: BASO# 0.03 X1000 (0.0-0.2); BASO% 0.5 % (0.0-0.8); EOS# 0.17 X1000 (0.0-0.7); EOS% 2.9 % (0.0-10.0); HEMATOCRIT 33.6 % (42.0-52.0); HEMOGLOBIN 10.5 g/dL (14.0-18.0); LYMPH# 1.12 X1000 (1.2-3.4); MCH 30.3 PG (27-31); MCHC 31.3 g/dL (33-37); MCV 96.8 FL (81-99); MONO# 0.66 X1000 (0.11-0.59); MONO% 11.2 % (1.7-9.3); NEUT# 3.92 X1000 (1.4-6.5); NEUT% 66.4 % (42.2-75.2); PLT 167 X1000 (130-400); RBC 3.47 XMIL (4.7-6.1); RDW 14.5 % (11.5-14.5)
[2019-01-12 05:44] LABS: AGAP 11; ALB/GLOB RATIO 0.7; ALBUMIN 2.8 g/dL (3.5-5.0); ALKALINE PHOSPHATASE 42 U/L (32-122); BUN 18 mg/dL (8-22); CALCIUM 8.5 mg/dL (8.8-10.2); CHLORIDE 108 mmol/L (98-107); COSMO 287; CREATININE 0.9 mg/dL (0.7-1.2); ESTIMATED GFR > 60; GLUCOSE 109 mg/dL (70-104); GOT 11 U/L (10-34); GPT 8 U/L (10-44); POTASSIUM 4.1 mmol/L (3.5-5.1); SODIUM 143 mmol/L (136-145); TCO2 24 mmol/L (25-35); TOTAL BILIRUBIN 0.77 mg/dL (0.20-1.00); TOTAL PROTEIN 6.6 g/dL (6.3-8.3)
[2019-01-12] MEDS: PULMICORT INH SCH ×2 (07:53→19:35)
[2019-01-12] MEDS: MUCOMYST 20% INH SCH ×2 (07:53→19:36)
--- NOTE | 2019-01-12 10:03 | PROGRESS NOTE ---
DATE: 01/12/2019 INTERVAL HISTORY: Patient was transferred from ICU to the PVC unit. He did not have any other acute overnight events except he was a little anxious overnight and was shouting and wanted to come out of bed. He had to be given haloperidol. Despite that he was agitated, so he had to be restrained. SUBJECTIVE: At the time of my evaluation, patient is coughing up some sputum, not in acute distress. He appears a little confused. I tried to redirect and reorient him. He denies any chest pain or shortness of breath. He follows simple commands. Temperature 97.9 degrees, pulse 72, respiratory 19, blood pressure 130/76, saturating 96% on Venturi mask. PHYSICAL EXAMINATION: His mouth is dry. He keeps his mouth open. There is greenish yellowish sputum that he has expectorated.Lungs: Air entry bilaterally equal. No wheeze, rhonchi, or crackles. Cardiovascular: S1, S2 normal. No murmur, rub, or gallop. Abdomen: Scaphoid, soft, nontender. PEG tube site appears to be intact. Extremities: No lower extremity edema. Neurologic: He is alert. He is following simple commands. He is not oriented. I had difficulty understanding his speech. He does have parkinsonian facies. LABS: Suggestive of gram-negative gustavo in the sputum. No new imaging today. ASSESSMENT AND PLAN: 1. Acute hypoxic respiratory failure due to bilateral lower lobe aspiration pneumonia in the setting of oropharyngeal dysphagia. Continue oxygenation and wean down as tolerated to maintain saturation more than 94%. Continue intravenous Zosyn and stop vancomycin and follow up final sputum culture results. Continue incentive spirometry and physical therapy as tolerated. Keep him NPO. 2. History of Parkinson's disease with severe oropharyngeal dysphagia status post PEG tube. Continue PEG tube feeding, home levodopa carbidopa, rasagiline and Nuplazid. A swallow study was ordered yesterday however I would keep him NPO since he would be at continuous risk of aspiration if he takes by mouth. 3. Intermittent episodes of agitation and psychosis. This is likely hospital- acquired delirium. I will continue his home donepezil, citalopram, and Nuplazid. 4. History of benign prostatic hypertrophy. Continue tamsulosin. 5. Others. Continue pantoprazole for GERD, enoxaparin for DVT prophylaxis. DISPOSITION: I will continue monitor patient in [facility]. Plan of care discussed with the nursing team. cc: Sathya Ybarra MD MTDD
[2019-01-12] MEDS: SINEMET 25/100 PEG SCH ×4 (10:23→21:08)
[2019-01-12] MEDS: FLOMAX PO SCH ×2 (10:23→21:08)
[2019-01-12] MEDS: PROTONIX PO SCH (10:23)
[2019-01-12] MEDS: LOVENOX SUBQ SCH (10:24)
[2019-01-12] MEDS: ARICEPT PO SCH (10:30)
[2019-01-12] MEDS: RASAGILINE MESYLATE 1 MG PO SCH (11:07)
[2019-01-12] MEDS: HALDOL IV PRN (13:37)
--- NOTE | 2019-01-12 18:44 | PULMONOLOGY PROGRESS NOTE ---
DATE: 01/12/2019 SUBJECTIVE: The patient is awake and alert. He has difficulty coughing and clearing his secretions. He has no increased work of breathing. He did require some restraint last evening. OBJECTIVE: The patient has been afebrile for the last 24 hours. Blood pressure 112/72, heart rate 78, respiratory rate 17, oxygen saturation 98% on 40% face mask.HEENT: Pupils are equal and reactive. Oropharynx appears clear. Neck: Supple. Chest: Reveals bilateral rhonchi. Cardiac: S1-S2. Abdomen: Soft. Extremities: Without edema. LABORATORIES: White blood count 5.9, hemoglobin 10.5, platelet count 167,000. Sodium 143, potassium 4.1, chloride 108, bicarbonate 24, BUN 18, creatinine 0.9. IMPRESSION: 73-year-old with 1. Aspiration pneumonia. 2. Acute hypoxemic respiratory failure. 3. Leukocytosis. 4. Parkinson disease. PLAN: 1. Continue current antibiotic regimen. 2. Remain NPO until he has significant clinical improvement. The patient is aware that he will likely have ongoing aspiration if he eats. 3. Overall prognosis is guarded. The patient is a candidate for hospice. cc: Yonathan Louis MD
[2019-01-12] MEDS: PATIENT'S OWN MED PO SCH (21:08)
[2019-01-12] MEDS: CELEXA PO SCH (21:08)
[2019-01-12] MEDS: SEROQUEL PO PRN (21:08)
[2019-01-13] MEDS: DUONEB (A & A) INH SCH ×6 (03:22→22:30)
[2019-01-13] MEDS: ZOSYN 3.375 GM in NS 50 ML IV SCH (03:29)
[2019-01-13] MEDS: HALDOL IV PRN (04:10)
[2019-01-13 05:40] LABS: BASO# 0.02 X1000 (0.0-0.2); BASO% 0.4 % (0.0-0.8); EOS# 0.18 X1000 (0.0-0.7); EOS% 3.2 % (0.0-10.0); HEMATOCRIT 36.9 % (42.0-52.0); HEMOGLOBIN 11.7 g/dL (14.0-18.0); LYMPH% 17.6 % (20.5-51.1); MCH 30.5 PG (27-31); MCHC 31.7 g/dL (33-37); MCV 96.3 FL (81-99); MONO# 0.66 X1000 (0.11-0.59); MONO% 11.6 % (1.7-9.3); MPV 11.1 FL (7.4-10.4); NEUT# 3.82 X1000 (1.4-6.5); NEUT% 67.2 % (42.2-75.2); PLT 190 X1000 (130-400); RBC 3.83 XMIL (4.7-6.1); RDW 14.1 % (11.5-14.5); WBC 5.68 X1000 (4.8-10.8)
[2019-01-13 06:05] LABS: AGAP 13; ALB/GLOB RATIO 0.7; ALBUMIN 2.8 g/dL (3.5-5.0); ALKALINE PHOSPHATASE 45 U/L (32-122); BUN 16 mg/dL (8-22); CALCIUM 8.4 mg/dL (8.8-10.2); CHLORIDE 104 mmol/L (98-107); COSMO 282; ESTIMATED GFR > 60; GLUCOSE 97 mg/dL (70-104); GOT 12 U/L (10-34); GPT 7 U/L (10-44); POTASSIUM 4.4 mmol/L (3.5-5.1); SODIUM 141 mmol/L (136-145); TCO2 24 mmol/L (25-35); TOTAL BILIRUBIN 0.94 mg/dL (0.20-1.00); TOTAL PROTEIN 7.1 g/dL (6.3-8.3)
[2019-01-13] MEDS: PULMICORT INH SCH ×2 (08:00→19:24)
[2019-01-13] MEDS: MUCOMYST 20% INH SCH ×2 (08:01→19:24)
[2019-01-13] MEDS: LOVENOX SUBQ SCH ×2 (08:48→10:16)
[2019-01-13] MEDS: LEVAQUIN 750 MG/D5W 750 MG/150 ML IVPB IV SCH (08:48)
[2019-01-13] MEDS: RASAGILINE MESYLATE 1 MG PO SCH (08:49)
[2019-01-13] MEDS: SINEMET 25/100 PEG SCH (08:49)
[2019-01-13] MEDS: PROTONIX PO SCH (08:49)
[2019-01-13] MEDS: FLOMAX PO SCH ×2 (08:49→21:59)
[2019-01-13] MEDS: ARICEPT PO SCH (08:49)
--- NOTE | 2019-01-13 09:16 | PROGRESS NOTE ---
DATE: 01/13/2019 INTERVAL HISTORY: No acute events overnight. SUBJECTIVE: The patient denies any new complaints. He states he could not sleep that well. His cough is better. VITALS: Temperature 98.5 degrees, pulse 69, respirations 17, blood pressure 130/80, saturating 99% on 35% Venturi mask. PHYSICAL EXAMINATION: General: Oral cavity, he keeps his mouth open. Lungs: Air entry bilaterally equal. No wheeze, rhonchi, or crackles. Cardiovascular: S1, S2 normal. No murmur, rub, or gallop. Abdomen: Scaphoid, soft, nontender. He has a PEG tube. No lower extremity edema. He does have generalized rigidity. However, he is following commands like wiggling his toes and shaking hands. LABS: Suggestive of normocytic anemia, normal platelet count, normal electrolytes. MICROBIOLOGY: Sputum culture is growing Pseudomonas aeruginosa which is sensitive to levofloxacin. IMAGING: No new imaging. ASSESSMENT AND PLAN: 1. Acute hypoxic respiratory failure due to bilateral lower lobe aspiration pneumonia in the setting of oropharyngeal dysphagia. Wean down oxygen as tolerated. Change antibiotics to intravenous levofloxacin for Pseudomonas pneumonia and continue incentive spirometry and physical therapy as tolerated. Keep him nothing per oral. 2. History of Parkinson's disease with severe pharyngeal dysphagia, status post percutaneous endoscopic gastrostomy tube and deep brain stimulator. Continue PEG tube feeding, home levodopa/carbidopa, rasagiline. I will keep him nothing per oral due to ongoing risk of aspiration. 3. Intermittent episodes of agitation and psychosis, likely in the setting of hospital-acquired delirium. Continue his home donepezil, citalopram, Nuplazid, and I will give haloperidol only if his agitation puts his safety at risk. 4. History of benign prostatic hypertrophy. Continue tamsulosin. 5. Others. Continue pantoprazole for gastroesophageal reflux disease and enoxaparin for deep venous thrombosis prophylaxis. 6. Disposition. My plan is to wean down his oxygen and keep him on levofloxacin. If we are able to wean down his oxygen, my plan would be expecting discharge in the next 24 hours or so, back to home, on antibiotics through the percutaneous endoscopic gastrostomy tube. I will discuss the plan with the family. cc: MD LUTHER Beckwith
[2019-01-13] MEDS ORDERED: LOPRESSOR IV ONE (10:02)
[2019-01-13] MEDS ORDERED: ADENOCARD IV ONE ×2 (10:02→10:16)
[2019-01-13] MEDS ORDERED: NS 1,000 ML IV ONE (10:02)
[2019-01-13] MEDS ORDERED: CORDARONE 360 MG/D5W 360 MG/200 ML IV.SOLN IV ONE (10:23)
[2019-01-13] MEDS ORDERED: CORDARONE ONE (10:35)
[2019-01-13] MEDS ORDERED: CORDARONE 360 MG/D5W 360 MG/200 ML IV.SOLN ONE (10:35)
[2019-01-13] MEDS ORDERED: D5W ONE (10:35)
--- NOTE | 2019-01-13 11:27 | PROGRESS NOTE ---
DATE: 01/13/2019 At around 10 a.m., he went into narrow complex supraventricular tachycardia and he was also hypotensive so I was called. On my arrival, I found him to be short of breath and he was trying to cough up. His heart rate was as high as 180-90. His systolic blood pressure was 70. I started him on a liter of intravenous fluid bolus and I gave him intravenous. He was attached to the monitor. I gave him intravenous 6 mg of adenosine initially which did not help with his heart rhythm so I added 12 mg of adenosine which did not help with his heart rate either. However, briefly, I could see on the monitor he had irregular rhythm. I gave him 5 mg of metoprolol and his heart rate remained around 140s to 150s. With intravenous fluids, his blood pressure slightly improved. On manual, it was 80-90 systolic. With deep suction, his respiration also improved. I had a discussion about his course with computer repairer and I am starting him on amiodarone drip, though I am not giving him a bolus considering he is hypotensive, until I await to talk with the computer repairer in person. Plan of care discussed with the patient's family who was at bedside. Their questions were satisfactorily answered. cc: Sathya Ybarra MD
[2019-01-13] MEDS ORDERED: CORDARONE 150 MG/D5W 150 MG/100 ML IV.SOLN IV ONE (12:02)
--- NOTE | 2019-01-13 13:20 | CARDIOLOGY CONSULTATION ---
DATE: 01/13/2019 REASON FOR CONSULTATION: Cardiology was consulted for atrial flutter/fibrillation, rapid ventricular rate. HISTORY OF PRESENT ILLNESS: Mr. Larry Kumar is a 73-year-old, gentleman who went into a narrow complex tachycardia with a heart rate of 180 to 190 beats per minute. He was given adenosine, subsequently 5 mg of metoprolol intravenously. Heart rate came down into the 140s and was in atrial flutter. He was started on an amiodarone drip with a bolus. Patient has converted to sinus rhythm and is currently on the amiodarone drip. I had a detailed discussion with the patient's family. History was also obtained from the chart. The patient has multiple medical problems including severe Parkinson's disease, significant dysphagia, PEG tube placement. He was admitted with shortness of breath and rattling. CT scan of his chest was done which revealed multifocal infiltrates at the bases suggestive of aspiration pneumonia. PAST MEDICAL HISTORY: 1. Parkinson's. 2. Hypertension. 3. Gastroesophageal reflux disease. 4. Agent [place] exposure. 5. Depression. 6. Frequent aspiration pneumonia. 7. AAA repair. 8. Brain stimulation device. 9. TURP. 10. PEG tube placement. HOME MEDICATIONS: 1. Aricept 10. 2. Azilect. 3. Carbidopa/levodopa. 4. Amlodipine 2.5. 5. Nuplazid. 6. Protonix. 7. Tamsulosin. 8. Colace. 9. Seroquel. REVIEW OF SYSTEMS: A 14-point review of systems was obtained. PHYSICAL EXAMINATION: Blood pressure was 110/80. First and second heart sounds were heard. There were no murmurs. Respiratory System: Scattered expiratory wheeze. Abdomen: PEG tube in place. Bowel sounds heard. Central Nervous System: Oriented, was moving all 4 extremities. Detailed central nervous system examination not performed. LABORATORY EXAMINATION: Sodium 141, potassium 4.4, BUN 16, creatinine 1.0. Hematology: WBC 5.68, hemoglobin 11.7, hematocrit 36.9, platelet count of 190,000. CURRENT MEDICATIONS: His current medications include amiodarone drip, nebulizers, Protonix 40, levofloxacin, Lovenox for DVT prophylaxis, tamsulosin. ALLERGIES: He is not known to be allergic to any medications. ASSESSMENT AND PLAN: Mr. Larry Hanners is a 73-year-old, gentleman who has hypoxic respiratory failure with bilateral lower lobe pneumonia secondary to aspiration. He has Parkinson's disease with severe pharyngeal dysphagia, status post percutaneous gastrostomy tube placed in addition to a brain stimulator, and also has intermittent episodes of agitation, psychosis. Today, went into atrial flutter with rapid ventricular rate. He is currently on the amiodarone drip and has converted to sinus rhythm. RECOMMENDATIONS: 1. Once he has finished with the drip, we will change him to amiodarone p.o. via the PEG tube. 2. As far as anticoagulation therapy is concerned, I have had a detailed discussion with the patient's family. Given his risks and benefits, the patient's family decided to leave him on aspirin 81 mg a day and no anticoagulation therapy. Thank you for the consult. We will follow hospital course. cc: Raji Saldivar MD
[2019-01-13] MEDS ORDERED: CORDARONE 540 MG in D5W 289.2 ML IV ONE (16:23)
--- NOTE | 2019-01-13 17:06 | EKG Report ---
Test Performed on : 01/13/2019 08:56:05 AM Test Reason : QTc monitoring Blood Pressure : / mmHG Vent. Rate : 074 BPM Atrial Rate : 102 BPM P-R Int : 000 ms QRS Dur : 068 ms QT Int : 468 ms P-R-T Axes : 000 061 053 degrees QTc Int : 519 ms Atrial fibrillation. with premature ventricular or aberrantly conducted complexes. ST elevation, consider early repolarization, pericarditis, or injury Nonspecific ST and T wave abnormality Prolonged QT Abnormal ECG When compared with ECG of 20-OCT-2018 10:06, Significant changes have occurred Confirmed by Isael Rodrigez MD ([id number]) on 01/13/2019 9:43:26 PM
--- NOTE | 2019-01-13 17:07 | EKG Report ---
Test Performed on : 01/13/2019 10:37:49 AM Test Reason : afib Blood Pressure : / mmHG Vent. Rate : 137 BPM Atrial Rate : 101 BPM P-R Int : 000 ms QRS Dur : 000 ms QT Int : 336 ms P-R-T Axes : 000 -33 -19 degrees QTc Int : 507 ms Atrial fibrillation. with rapid ventricular response. Left axis deviation Nonspecific intraventricular block Abnormal ECG Confirmed by Rain HUNTER, Isael Carson ([id number]) on 01/13/2019 9:45:32 PM
--- NOTE | 2019-01-13 17:07 | EKG Report ---
Test Performed on : 01/13/2019 09:51:38 AM Test Reason : Increased HR Blood Pressure : / mmHG Vent. Rate : 159 BPM Atrial Rate : 182 BPM P-R Int : 000 ms QRS Dur : 082 ms QT Int : 298 ms P-R-T Axes : 000 095 004 degrees QTc Int : 484 ms Critical Test Result: High HR , STEMI Atrial fibrillation. with rapid ventricular response. Rightward axis Abnormal ECG Confirmed by Rain HUNTER, Isael Carson ([id number]) on 01/13/2019 9:45:04 PM
--- NOTE | 2019-01-13 17:08 | EKG Report ---
Test Performed on : 01/13/2019 11:18:15 AM Test Reason : PNA, Afib/SR/SB Blood Pressure : / mmHG Vent. Rate : 126 BPM Atrial Rate : 126 BPM P-R Int : 112 ms QRS Dur : 078 ms QT Int : 314 ms P-R-T Axes : 000 082 024 degrees QTc Int : 454 ms Sinus tachycardia. Nonspecific ST abnormality Abnormal ECG When compared with ECG of 13-JAN-2019 10:37, (Unconfirmed) Sinus rhythm. has replaced Atrial fibrillation. Questionable change in QRS duration Confirmed by Rain HUNTER, Isael Carson ([id number]) on 01/13/2019 9:45:56 PM
--- NOTE | 2019-01-13 17:08 | EKG Report ---
Test Performed on : 01/13/2019 12:49:42 PM Test Reason : Rhythm Change Blood Pressure : / mmHG Vent. Rate : 057 BPM Atrial Rate : 057 BPM P-R Int : 140 ms QRS Dur : 076 ms QT Int : 408 ms P-R-T Axes : 054 077 067 degrees QTc Int : 397 ms Sinus bradycardia. with premature supraventricular complexes. Otherwise normal ECG When compared with ECG of 13-JAN-2019 11:18, (Unconfirmed) premature supraventricular complexes. are now present Vent. rate has decreased BY 69 BPM Confirmed by Isael Rodrigez MD ([id number]) on 01/13/2019 9:46:04 PM
--- NOTE | 2019-01-13 17:23 | PULMONOLOGY PROGRESS NOTE ---
DATE: 01/13/2019 SUBJECTIVE: The patient is awake and alert. He is slow to converse. He has an episode of tachyarrhythmia and is being treated for atrial fibrillation by Cardiology. OBJECTIVE: Vital Signs: The patient has been afebrile for the last 24 hours. Blood pressure 98/60, heart rate 58, respiratory rate 17, oxygen saturation 90% on 35% FiO2. HEENT: Pupils are equal and reactive. Oropharynx is clear. Neck: Supple. Chest: Reveals poor cough effort with scattered rhonchi. Cardiac: Irregularly irregular. Normal S1, normal S2. Abdomen: Soft with feeding tube in position. Extremities: Without edema. IMPRESSION: 1. A 73-year-old with aspiration pneumonia. 2. Acute hypoxemic respiratory failure. 3. Parkinson disease which is fairly advanced with probable component of dementia. 4. Leukocytosis. 5. Atrial dysrhythmia. PLAN: 1. Continue current antibiotic regimen. 2. Continue n.p.o. status. 3. Follow up chest x-ray tomorrow. 4. Agree with plans for cardiology evaluation. 5. Consider palliative care evaluation. cc: Yonathan Louis MD
[2019-01-14] MEDS: DUONEB (A & A) INH SCH ×6 (02:37→23:17)
--- NOTE | 2019-01-14 06:40 | Diag Imaging Result Doc PS360 ---
EXAM: CHEST-PORTABLE HISTORY: abnormal exam TECHNIQUE: Chest single view COMPARISON: 01/11/2019 FINDINGS: The lungs are hyperexpanded. No cardiomegaly. Worsening infiltrates in the left base with a small left pleural effusion. IMPRESSION: Interval worsening Electronically signed by Theo Jeffers 01/14/2019 6:38 AM
[2019-01-14 06:46] LABS: BASO# 0.03 X1000 (0.0-0.2); BASO% 0.5 % (0.0-0.8); EOS% 1.7 % (0.0-10.0); HEMATOCRIT 39.8 % (42.0-52.0); HEMOGLOBIN 12.5 g/dL (14.0-18.0); IMM GRAN# 0.02 X1000 (0.0-0.04); IMM GRAN% 0.3 % (0.0-0.5); LYMPH# 1.13 X1000 (1.2-3.4); LYMPH% 18.7 % (20.5-51.1); MCH 30.3 PG (27-31); MCHC 31.4 g/dL (33-37); MCV 96.6 FL (81-99); MONO# 0.54 X1000 (0.11-0.59); NEUT# 4.21 X1000 (1.4-6.5); NEUT% 69.8 % (42.2-75.2); PLT 200 X1000 (130-400); RBC 4.12 XMIL (4.7-6.1); RDW 13.8 % (11.5-14.5); WBC 6.03 X1000 (4.8-10.8)
[2019-01-14 06:59] LABS: ALB/GLOB RATIO 0.6; CREATININE 1.2 mg/dL (0.7-1.2); POTASSIUM 4.4 mmol/L (3.5-5.1); TOTAL BILIRUBIN 0.53 mg/dL (0.20-1.00); TOTAL PROTEIN 7.7 g/dL (6.3-8.3)
--- NOTE | 2019-01-14 07:16 | EKG Report ---
Test Performed on : 01/14/2019 06:57:02 AM Test Reason : FOllow up QTc interval Blood Pressure : / mmHG Vent. Rate : 064 BPM Atrial Rate : 025 BPM P-R Int : 000 ms QRS Dur : 112 ms QT Int : 472 ms P-R-T Axes : 000 054 036 degrees QTc Int : 486 ms Atrial fibrillation. Junctional ST depression, probably normal Prolonged QT Abnormal ECG When compared with ECG of 13-JAN-2019 12:49, Atrial fibrillation. has replaced Sinus rhythm. QRS duration has increased T wave amplitude has increased in Lateral leads QT has lengthened Confirmed by Isael Rodrigez MD ([id number]) on 01/15/2019 11:05:37 PM
[2019-01-14] MEDS: PULMICORT INH SCH ×2 (07:48→19:16)
[2019-01-14] MEDS: MUCOMYST 20% INH SCH ×2 (07:49→19:16)
[2019-01-14] MEDS: LEVAQUIN 750 MG/D5W 750 MG/150 ML IVPB IV SCH (09:52)
[2019-01-14] MEDS: PROTONIX PO SCH ×2 (09:53→10:16)
[2019-01-14] MEDS: RASAGILINE MESYLATE 1 MG PO SCH (09:53)
[2019-01-14] MEDS: FLOMAX PO SCH ×2 (09:53→22:39)
[2019-01-14] MEDS: LOVENOX SUBQ SCH (10:10)
--- NOTE | 2019-01-14 11:14 | PROGRESS NOTE ---
DATE: 01/14/2019 INTERVAL HISTORY: No acute events overnight. After getting amiodarone bolus, his heart rate had eventually came down to 60s and since then, he has been normal sinus rhythm with a few premature atrial contractions. He had to be kept in restraints overnight because he was agitated. SUBJECTIVE: He is alert. He is following simple commands at the moment. He keeps his mouth open. He is on oxygen mask. Denies any complaints. OBJECTIVE: Vital Signs: Temperature 99.1 degrees, pulse 58, respiratory 23, blood pressure 120/70, saturating 99% on 35% Ventimask. General: Not in any acute distress. HEENT: Oral cavity is dry. Lungs: He does have rhonchi with inspiratory crackles left infrascapular region. Adequate air entry on right hemithorax. Cardiovascular: S1, S2 normal, mostly regular. No murmur, rub, or gallop. Abdomen: Soft, scaphoid. PEG tube site is intact. Extremities: No lower extremity edema. LABORATORY DATA: Suggestive of essentially stable CBC and BMP. Microbiology: No new data. IMAGING: Chest x-ray today morning suggests worsening infiltrate in the left base with a small left pleural effusion. ASSESSMENT AND PLAN: 1. Acute hypoxic respiratory failure due to bilateral lower lobe aspiration pneumonia in the setting of oropharyngeal dysphagia. Keep him on oxygen through mask since he is a mouth breather. Continue intravenous levofloxacin for Pseudomonas pneumonia, incentive spirometry, physical therapy and speech therapy as tolerated. Keep him NPO. 2. History of episode of narrow complex regular tachycardia, likely atrial flutter with 2:1 response on 01/13/2019. He initially did not respond to intravenous adenosine, metoprolol, and was started on amiodarone which helped. I will appreciate Cardiology recommendation about changing it to oral amiodarone and need for anticoagulation in the future. 3. History of Parkinson's disease with severe oropharyngeal dysphagia status post PEG tube and deep brain stimulator. Resume PEG tube feeding. Resume his levodopa carbidopa and continue rasagiline. I will keep him NPO due to ongoing risk of aspiration. Continue to hold his donepezil, citalopram, and Nuplazid for now since he is on levofloxacin and amiodarone which all together could prolonged QTc and will add them back as tolerated. Meanwhile, I will give him intravenous haloperidol as needed to control his agitation, which is likely in the setting of his Parkinson disease and hospital-acquired delirium. 4. History of benign prostatic hypertrophy. Continue tamsulosin. 5. Others. Continue pantoprazole for GERD, enoxaparin for DVT prophylaxis. DISPOSITION: I will continue to monitor patient in PVC. I had an extensive discussion about his clinical course with his daughter at bedside. I explained to her about his significantly higher future risk of aspiration events as well, and I explained to him that if his wishes were to eat by mouth, then in future allowing him to eat by mouth, palliative care could be an option for his care. The daughter understood it. The palliative care team is currently on board and there is an ongoing discussion about goals of care. The daughter also expressed that in future, she [facility] For now just because he just had atrial flutter yesterday, I am going to keep him in the hospital. Plan of care discussed with daughter. All of her questions have been answered. ADDENDUM: At 6:45 PM he again developed regular supraventricular tachycardia which looked like Atrial flutter. His BP was 90s/60s. He was asymptomatic on my evaluation. I will again give him another bolus and will start him on Amiodarone drip. cc: Sathya Ybarra MD [facility]
[2019-01-14] MEDS: SINEMET 25/100 PEG SCH ×3 (12:32→22:39)
[2019-01-14] MEDS: CORDARONE PO SCH (13:14)
[2019-01-14] MEDS ORDERED: CORDARONE 360 MG/D5W 360 MG/200 ML IV.SOLN IV ONE ×2 (18:47→18:53)
[2019-01-14] MEDS ORDERED: CORDARONE 150 MG/D5W 150 MG/100 ML IV.SOLN IV ONE (18:53)
--- NOTE | 2019-01-14 18:59 | EKG Report ---
Test Performed on : 01/14/2019 6:38:51 PM Test Reason : afib rvr Blood Pressure : / mmHG Vent. Rate : 155 BPM Atrial Rate : 136 BPM P-R Int : 000 ms QRS Dur : 078 ms QT Int : 300 ms P-R-T Axes : 000 077 041 degrees QTc Int : 482 ms Critical Test Result: High HR Atrial fibrillation. with rapid ventricular response. ST & T wave abnormality, consider inferior ischemia Abnormal ECG When compared with ECG of 14-JAN-2019 06:57, (Unconfirmed) Significant changes have occurred Confirmed by Isael Rodrigez MD ([id number]) on 01/15/2019 11:07:50 PM
[2019-01-15] MEDS ORDERED: CORDARONE 540 MG in D5W 289.2 ML IV ONE ×2 (00:54→02:00)
[2019-01-15] MEDS ORDERED: MORPHINE IV ONE (01:28)
[2019-01-15] MEDS: DUONEB (A & A) INH SCH ×6 (03:18→23:20)
[2019-01-15 07:06] LABS: BASO# 0.02 X1000 (0.0-0.2); BASO% 0.3 % (0.0-0.8); EOS# 0.04 X1000 (0.0-0.7); EOS% 0.6 % (0.0-10.0); HEMATOCRIT 33.9 % (42.0-52.0); HEMOGLOBIN 10.7 g/dL (14.0-18.0); IMM GRAN# 0.02 X1000 (0.0-0.04); IMM GRAN% 0.3 % (0.0-0.5); LYMPH% 12.6 % (20.5-51.1); MCH 30.1 PG (27-31); MCHC 31.6 g/dL (33-37); MCV 95.2 FL (81-99); MONO# 0.64 X1000 (0.11-0.59); MONO% 10.1 % (1.7-9.3); MPV 11.2 FL (7.4-10.4); NEUT# 4.81 X1000 (1.4-6.5); NEUT% 76.1 % (42.2-75.2); PLT 193 X1000 (130-400); RBC 3.56 XMIL (4.7-6.1); RDW 13.5 % (11.5-14.5); WBC 6.33 X1000 (4.8-10.8)
[2019-01-15 07:49] LABS: AGAP 12; ALB/GLOB RATIO 0.8; ALBUMIN 2.8 g/dL (3.5-5.0); ALKALINE PHOSPHATASE 48 U/L (32-122); BUN 18 mg/dL (8-22); CALCIUM 8.1 mg/dL (8.8-10.2); CHLORIDE 104 mmol/L (98-107); COSMO 280; ESTIMATED GFR > 60; GLUCOSE 115 mg/dL (70-104); GOT 13 U/L (10-34); GPT 8 U/L (10-44); POTASSIUM 4.1 mmol/L (3.5-5.1); SODIUM 139 mmol/L (136-145); TCO2 23 mmol/L (25-35); TOTAL PROTEIN 6.3 g/dL (6.3-8.3)
[2019-01-15] MEDS: PULMICORT INH SCH ×2 (08:03→19:17)
[2019-01-15] MEDS: MUCOMYST 20% INH SCH ×2 (08:03→19:17)
[2019-01-15] MEDS: FLOMAX PO SCH ×2 (09:02→21:11)
[2019-01-15] MEDS: SINEMET 25/100 PEG SCH ×4 (09:03→21:11)
[2019-01-15] MEDS: RASAGILINE MESYLATE 1 MG PO SCH (09:03)
[2019-01-15] MEDS: CORDARONE PO SCH ×2 (09:04→21:11)
[2019-01-15] MEDS: PROTONIX PO SCH (09:04)
[2019-01-15] MEDS: LOVENOX SUBQ SCH (09:12)
--- NOTE | 2019-01-15 10:17 | Diag Imaging Result Doc PS360 ---
EXAM: CHEST-1 VIEW HISTORY: pneumonia TECHNIQUE: Portable chest COMPARISON: 01/14/2019 FINDINGS: There are infiltrates in the left lung base. These are less dense than on the prior study. The right lung is clear. No cardiomegaly. Trace left effusion. IMPRESSION: Mild interval improvement. Electronically signed by Theo Jeffers 01/15/2019 10:14 AM
--- NOTE | 2019-01-15 12:24 | EKG Report ---
Test Performed on : 01/15/2019 12:18:58 PM Test Reason : afib Blood Pressure : / mmHG Vent. Rate : 062 BPM Atrial Rate : 062 BPM P-R Int : 144 ms QRS Dur : 086 ms QT Int : 468 ms P-R-T Axes : 070 082 072 degrees QTc Int : 475 ms Sinus rhythm. with premature atrial complexes. Otherwise normal ECG When compared with ECG of 14-JAN-2019 18:38, (Unconfirmed) Sinus rhythm. has replaced Atrial fibrillation. Vent. rate has decreased BY 93 BPM Non-specific change in ST segment in Inferior leads ST no longer depressed in Anterior leads T wave inversion no longer evident in Inferior leads Confirmed by Rain HUNTER, Isael Carson ([id number]) on 01/15/2019 11:09:49 PM
[2019-01-15] MEDS ORDERED: CORDARONE PO ONE ×2 (12:51→12:56)
--- NOTE | 2019-01-15 14:23 | INFECTIOUS DISEASE CONSULT REP ---
DATE: 01/15/2019 CONCLUSION: Patient has a Pseudomonas pneumonia. This may be due to the patient aspirating. RECOMMENDATIONS: I agree with treating the patient with Levaquin since the organism is resistant to ceftazidime and intermediately sensitive to cefepime. I do not see where Zosyn is in the susceptibility testing. I decreased the patient's dose of Levaquin from 750 mg to 500 mg daily in view of the fact that the patient only weighs 117 pounds. DISCUSSION: The patient is unable to provide a history. It was taken mainly from his . The patient for the past 2 weeks has been having cough and dyspnea. He has not had any fever or chills. The patient's chest x-ray shows improvement in the left lower lobe infiltrate. The liver function studies are normal. The sputum grew Pseudomonas. Blood cultures are negative. The patient's CBC shows a white count of 6330, hemoglobin 10.7, and platelet count 193,000. Creatinine is 1. GFR is greater than 60. REVIEW OF SYSTEMS: Eyes and ears: The patient does not have any problem hearing or seeing. Respiratory: See present illness. Cardiac: The patient has not been complaining of chest pain. Gastrointestinal: The patient is fed mainly by a G-tube. When he does get food, he sometimes aspirates. Genitourinary: There is no difficulty passing the urine. The patient is not having difficulty passing his urine. Neurologic: The patient can walk with the aid of a walker or somebody walking with them. PREVIOUS HOSPITALIZATIONS AND OPERATIONS: He has had placement of a PEG tube. He has been admitted before for problems dealing with parkinsonism. He has had a stent placed in the carotid artery. He has been admitted for pneumonia in the past. The patient has a battery placed in the upper part of the right chest and there is a tube that extends up and where it exactly ends I am not certain. The patient has also had a stent placed in his carotid artery. MEDICAL DISEASES: Positive for parkinsonism and carotid artery disease. Dementia and gastroesophageal reflux disease. INFECTIOUS DISEASE HISTORY: Positive for pneumonia thought most likely to be due to aspiration. The patient has also had a urinary tract infection in the past. FAMILY HISTORY: Positive for myocardial infarction and stroke. SOCIAL HISTORY: The patient is . He lives with his . They live in [place]. He has dogs for pets. The patient does not smoke, drink alcoholic beverages or abuse drugs. MEDICATIONS TAKEN AT HOME: Include the following: Amlodipine, carbidopa/levodopa. The patient also takes citalopram, Colace, Aricept, Protonix, Seroquel, Azilect, and tamsulosin. PHYSICAL EXAMINATION: Vital Signs: Temperature is 99 degrees, pulse 65, respirations 16, blood pressure 101/62. Patient is 5 feet 10 inches tall, weighs 117 pounds. General: This is a chronically ill and malnourished-appearing, elderly male. He is in no acute distress. He has a flat affect. Head/eyes/ears/nose/throat: Patient has a flat affect. There is no drainage from the nose or ears. I did not see any white patches in his mouth. Neck: No pain with movement of the neck. Lungs: Clear to auscultation. Cardiovascular: Regular heart rate. Abdomen: Soft and nontender. A PEG tube is in place. The site is not erythematous or purulent. Neurologic: The patient is awake. He can move his extremities. I did not see him have a tremor in bed. He talks in a very soft voice and is difficult for me to here him. He talks very slowly, also. Integument: No rash noted. Thank you for the consult. cc: Trevor Rogers MD
--- NOTE | 2019-01-15 19:54 | PROGRESS NOTE ---
DATE: 01/15/2019 SUBJECTIVE: The patient is resting comfortably in bed. No acute events noted overnight. OBJECTIVE: Vital Signs: T-max 99.7 degrees, blood pressure 106/60, heart rate 70, respirations 24, O2 saturations 92% on 6 L nasal cannula. Intake 1.7 L. General: This is a chronically ill- appearing elderly male lying in bed in no acute distress. Heart: S1, S2 normal. Regular rate and rhythm. Lungs: Coarse breath sounds. Abdomen: Positive bowel sounds. Soft, nontender, nondistended. Extremities: No edema. No cyanosis. Neurologic: The patient is awake and alert. LABS: Reviewed. IMAGING: Chest x-ray shows mild interval improvement in the infiltrates in the left lung base. ASSESSMENT AND PLAN: 1. Acute hypoxemic respiratory failure. Continue to treat the underlying aspiration pneumonia. 2. Aspiration pneumonia secondary to Pseudomonas. The patient's antibiotic dosage has been adjusted by Dr. Rogers. Continue with bronchodilator therapy and pulmonary toiletry. 3. Atrial fibrillation. The patient has been transitioned to oral amiodarone. We will continue to monitor closely. Cardiology is following. 4. Parkinson disease. Continue on Sinemet. 5. Benign prostatic hypertrophy. Continue on Flomax. 6. Severe oropharyngeal dysphagia status post PEG tube. The patient is currently receiving bolus feedings. 7. Gastroesophageal reflux disease. Continue on Protonix. 8. Deep vein thrombosis prophylaxis. Continue on Lovenox. DISPOSITION: The patient is currently a DNR level 1. Palliative care is following to help address goals of care with the patient and his family. cc: Irma Swain MD
[2019-01-15] MEDS: PATIENT'S OWN MED PO SCH (21:11)
[2019-01-15] MEDS: HALDOL IM PRN (22:21)
[2019-01-16] MEDS: DUONEB (A & A) INH SCH ×6 (03:44→23:16)
[2019-01-16 06:15] LABS: BASO# 0.02 X1000 (0.0-0.2); BASO% 0.4 % (0.0-0.8); EOS# 0.14 X1000 (0.0-0.7); HEMATOCRIT 37.5 % (42.0-52.0); HEMOGLOBIN 11.9 g/dL (14.0-18.0); IMM GRAN# 0.03 X1000 (0.0-0.04); IMM GRAN% 0.6 % (0.0-0.5); LYMPH# 0.83 X1000 (1.2-3.4); LYMPH% 17.7 % (20.5-51.1); MCH 30.5 PG (27-31); MCHC 31.7 g/dL (33-37); MCV 96.2 FL (81-99); MONO# 0.53 X1000 (0.11-0.59); MONO% 11.3 % (1.7-9.3); MPV 11.3 FL (7.4-10.4); NEUT# 3.15 X1000 (1.4-6.5); PLT 170 X1000 (130-400); RDW 13.5 % (11.5-14.5)
[2019-01-16 06:47] LABS: AGAP 12; ALB/GLOB RATIO 0.7; ALBUMIN 2.9 g/dL (3.5-5.0); ALKALINE PHOSPHATASE 48 U/L (32-122); BUN 21 mg/dL (8-22); CALCIUM 8.8 mg/dL (8.8-10.2); CHLORIDE 104 mmol/L (98-107); COSMO 283; CREATININE 0.9 mg/dL (0.7-1.2); ESTIMATED GFR > 60; GLUCOSE 106 mg/dL (70-104); GOT 17 U/L (10-34); GPT 9 U/L (10-44); POTASSIUM 4.2 mmol/L (3.5-5.1); SODIUM 140 mmol/L (136-145); TCO2 24 mmol/L (25-35); TOTAL BILIRUBIN 0.47 mg/dL (0.20-1.00); TOTAL PROTEIN 7.3 g/dL (6.3-8.3)
[2019-01-16] MEDS: PULMICORT INH SCH ×2 (07:30→19:30)
[2019-01-16] MEDS: MUCOMYST 20% INH SCH ×2 (07:30→19:30)
--- NOTE | 2019-01-16 08:19 | INFECTIOUS DISEASE PROGRESS NO ---
DATE: 01/16/2019 PRESENT ILLNESS: The patient has a Pseudomonas pneumonia. This could be due to aspiration. MEDICATIONS: The patient is receiving Levaquin. This is day 3 of treatment with Levaquin. PHYSICAL EXAMINATION: Vital Signs: Temperature is 98.9 degrees, pulse 55, respirations 16, blood pressure 148/85. General: This is a chronically ill-appearing and emaciated, elderly male. He is in no acute distress. Head, Eyes, Ears, Nose, and Throat: No drainage noted from the nose or ears. The patient is able to talk but I cannot understand what he is saying. Neck: No pain with movement. Lungs: There were bilateral rhonchi. Cardiovascular: Heart rate is regular. Abdomen: Soft and nontender. The patient has a PEG tube in place. The site is not purulent or tender. Neurologic: The patient is lethargic but he did move his extremities to request. LAB AND X-RAY: There is no new x-ray report thus far for today. Liver function studies are normal. Creatinine is 0.9. GFR is greater than 60. CBC shows a white count of 4700, hemoglobin 11.9, platelet count 170,000. There is no new radiology report for today yet. ASSESSMENT AND PLAN: The patient has a Pseudomonas pneumonia. Plan will be to continue Levaquin. If the patient is going to be going home, the Levaquin could be changed to either given oral or through the G-tube. COMORBIDITIES: The patient is elderly. He has parkinsonism. He also has gastroesophageal reflux disease and dementia. cc: Trevor Rogers MD
[2019-01-16] MEDS: LEVAQUIN 500 MG/D5W 500 MG/100 ML IVPB IV SCH (09:03)
[2019-01-16] MEDS: FLOMAX PO SCH ×2 (09:04→20:23)
[2019-01-16] MEDS: PROTONIX PO SCH (09:04)
[2019-01-16] MEDS: LOVENOX SUBQ SCH (09:04)
[2019-01-16] MEDS: SINEMET 25/100 PEG SCH ×4 (09:04→20:23)
[2019-01-16] MEDS: CORDARONE PO SCH ×2 (09:05→20:23)
[2019-01-16] MEDS: RASAGILINE MESYLATE 1 MG PO SCH (09:05)
[2019-01-16] MEDS ORDERED: CALMOSEPTINE OINTMENT TOP ONE (16:26)
[2019-01-16] MEDS: PATIENT'S OWN MED PO SCH (20:23)
[2019-01-16] MEDS: HALDOL IM PRN (21:19)
--- NOTE | 2019-01-17 01:13 | PULMONOLOGY PROGRESS NOTE ---
DATE: 01/16/2019 SUBJECTIVE: The patient is awake and alert. He has no increased work of breathing. OBJECTIVE: The patient has been afebrile for the last 24 hours. Blood pressure 133/74, heart rate 65, respiratory rate 20-34, oxygen saturation 98% on 2 L per nasal. HEENT: Pupils are equal and reactive. Oropharynx is clear. Neck is supple. Chest reveals occasional rhonchi bilaterally. Cardiac exam: S1, S2. Abdomen is soft. Extremities without edema. IMPRESSION: A 73-year-old with: 1. Pseudomonal pneumonia. Intermittent aspiration suspected. 2. Parkinson disease. 3. Component of dementia. 4. Acute hypoxemic respiratory failure. 5. Leukocytosis, which has resolved. RECOMMENDATIONS: 1. Continue antibiotic regimen. Agree with Infectious Disease, this could be transitioned to oral regimen. 2. Agree with ongoing end-of-life planning. His prognosis is poor. cc: Yonathan Louis MD
[2019-01-17] MEDS: DUONEB (A & A) INH SCH ×6 (03:17→23:05)
--- NOTE | 2019-01-17 04:00 | PROGRESS NOTE ---
DATE: 01/16/2019 SUBJECTIVE: The patient is resting comfortably in bed. He was very agitated overnight and required Haldol. OBJECTIVE: Vital Signs: Temperature 98.3 degrees, blood pressure 117/70, heart rate 61, respirations 18, O2 saturation 97% on 2 L nasal cannula. General: This is a chronically ill- appearing, elderly male, sitting up in bed in no acute distress. Heart: S1, S2 normal. Regular rate and rhythm. Lungs: Equal air entry bilaterally. No wheezing. No rales. Abdomen: Positive bowel sounds. Soft. There is a PEG tube in place. Extremities: No edema, no cyanosis. Neurologic: The patient is oriented to self. LABS: Hemoglobin 11, hematocrit 37, platelets 170,000. Sodium 140, potassium 4.2, chloride 104, CO2 24, BUN 21, creatinine 0.9, glucose 106. ASSESSMENT AND PLAN: 1. Acute hypoxemic respiratory failure. Continue to treat the underlying pneumonia. 2. Aspiration pneumonia secondary to Pseudomonas. Continue on Levaquin. 3. Severe oropharyngeal dysphagia, status post percutaneous endoscopic gastrostomy tube. Continue with bolus feedings. 4. Benign prostatic hypertrophy. Continue on Flomax. 5. Parkinson disease. Continue on Sinemet. 6. Atrial fibrillation. The patient is rate controlled. Continue on oral amiodarone. 7. Gastroesophageal reflux disease. Continue on Protonix. 8. Deep vein thrombosis prophylaxis. Continue on Lovenox. 9. Disposition. Palliative Care and Wash Tub Machine Operator are working on a discharge plan for the patient. The patient is currently a Do Not Resuscitate level 1. The patient's family member was updated this morning at the bedside. cc: Irma Swain MD [facility]
[2019-01-17] MEDS: MUCOMYST 20% INH SCH ×2 (07:58→19:12)
[2019-01-17] MEDS: PULMICORT INH SCH ×2 (07:59→19:12)
[2019-01-17] MEDS: PROTONIX PO SCH (09:42)
[2019-01-17] MEDS: CORDARONE PO SCH ×2 (09:42→20:28)
[2019-01-17] MEDS: LEVAQUIN 500 MG/D5W 500 MG/100 ML IVPB IV SCH (09:42)
[2019-01-17] MEDS: RASAGILINE MESYLATE 1 MG PO SCH (09:42)
[2019-01-17] MEDS: SINEMET 25/100 PEG SCH ×4 (09:42→20:28)
[2019-01-17] MEDS: FLOMAX PO SCH ×2 (09:42→20:28)
[2019-01-17] MEDS: LOVENOX SUBQ SCH (09:42)
--- NOTE | 2019-01-17 10:38 | Diag Imaging Result Doc PS360 ---
CHEST-PORTABLE - 01/17/2019 INDICATION: pneumonia COMPARISON: 01/15/2019 FINDINGS: There has been substantial improvement in the left lower lobe infiltrate/pneumonia. Stable diffuse pulmonary vascular congestion. Heart size remains top normal. No large pleural effusion. IMPRESSION: Improvement in the left lower lobe infiltrate/pneumonia. Stable significant pulmonary vascular congestion. Electronically signed by Taye Hoyt 01/17/2019 10:35 AM
--- NOTE | 2019-01-17 10:47 | INFECTIOUS DISEASE PROGRESS NO ---
DATE: 04/19/2018 PRESENT ILLNESS: The patient has a Pseudomonas pneumonia which may be being caused by aspiration. MEDICATIONS: This is the 4th day of treatment with Levaquin. PHYSICAL EXAMINATION: Vital Signs: Temperature is 98.7 degrees, pulse 55, respirations 15, blood pressure 129/80. General: This is a chronically ill and emaciated elderly male. He is in no acute distress, however. Head/eyes/ears/nose/throat: He can hear my spoken words. He appears to be able to see near objects. He does try to talk but I have difficulty making out what he is saying. I did not see any white coating on his tongue. Neck: No pain with movement. Lungs: Clear. Cardiovascular: Heart rate for the most part seems regular, but there were times when it is seems a little bit irregular. Abdomen: Soft and nontender. The patient has a PEG tube in place. The site is not purulent or draining. Neurologic: He is lethargic but he did move his extremities to request. He seems to be very weak. LAB AND X-RAY STUDIES: I do not have an x-ray for today. The last x-ray showed improvement in the patient's infiltrate. The patient's CBC shows a white count of 4700, hemoglobin 11.9, platelet count is a 170,000, creatinine is 0.9. GFR is greater than 60. Liver function studies are normal. Procalcitonin is less than 0.10. ASSESSMENT AND PLAN: Even though the procalcitonin level is very low, I think there is a good chance the patient does indeed have a Pseudomonas pneumonia and for that reason I am going to keep Levaquin going. COMORBIDITIES: The patient is elderly and he has Parkinsonism and gastroesophageal reflux disease and dementia. cc: Trevor Rogers MD
--- NOTE | 2019-01-17 16:03 | PROGRESS NOTE ---
DATE: 01/17/2019 SUBJECTIVE: The patient is resting comfortably in bed. No acute events noted overnight. OBJECTIVE: Vital Signs: Temperature 98.6 degrees, blood pressure 129/72, heart rate 57, respirations 20. O2 saturation 93% on 2 L nasal cannula. General: This is a chronically ill- appearing elderly male lying in bed in no acute distress. Heart: S1, S2. Normal. Bradycardic. Lungs: Equal air entry bilaterally. No wheezing. No rales. Abdomen: Positive bowel sounds. Soft, nontender, nondistended. Extremities: No edema, no cyanosis. Neurologic: The patient is alert and oriented x3. LABS: Hemoglobin 11, hematocrit 37, platelets 170,000. Sodium 140, potassium 4.2 chloride 104, CO2 24, BUN 21, creatinine 0.9, glucose 106, AST 9, alkaline phosphatase 48. Chest x-ray shows improvement in the left lower lobe infiltrate. ASSESSMENT AND PLAN: 1. Acute hypoxemic respiratory failure. Continue on supplemental oxygen and antibiotic therapy. 2. Aspiration pneumonia secondary to Pseudomonas. Continue on Levaquin. 3. Severe oropharyngeal dysphagia status post percutaneous endoscopic gastroscopy tube. Continue with tube feeds. 4. Benign prostatic hypertrophy. Continue on Flomax. 5. Atrial fibrillation. The patient is rate controlled. Continue on amiodarone as directed by the peritoneal dialysis registered nurse. 6. Gastroesophageal reflux disease. Continue on Protonix. 7. Parkinson disease. Continue on Sinemet. 8. Deep vein thrombosis prophylaxis. Continue on Lovenox. DISPOSITION: The patient's family is interested in getting the patient in at [facility]. The psychotherapist social worker has been notified and will assist with placement. The patient is currently a DNR level 1. I updated the patient's daughter, Mari Quiroga about the patient's clinical status. cc: Irma Swain MD [facility]
[2019-01-17] MEDS: PATIENT'S OWN MED PO SCH (20:28)
--- NOTE | 2019-01-17 21:10 | PULMONOLOGY PROGRESS NOTE ---
DATE: 01/17/2019 SUBJECTIVE: The patient is awake. He has a marginal cough effort. He appears to be comfortable. OBJECTIVE: The patient has been afebrile for the last 24 hours. Blood pressure 150/91, heart rate 57, respiratory rate 19, oxygen saturation 100% on 2 L per nasal cannula.HEENT: Pupils are equal and reactive. Oropharynx is clear. Neck: Supple. Chest: Occasional rhonchi bilaterally. Cardiac: S1-S2. Abdomen: Soft. Extremities: Without edema. DIAGNOSTIC DATA: Chest x-ray reveals significant improvement in the left lower lobe pneumonia. IMPRESSION: A 73-year-old with: 1. Pseudomonal pneumonia with intermittent aspiration. 2. Parkinson's disease. 3. Dementia. 4. Acute hypoxemic respiratory failure. DISCUSSION: A 73-year-old with problems outlined above. With his dementia, Parkinson's disease, and recurrent aspiration, his overall prognosis is poor. His chest x-ray continues to clear and I believe he could be discharged home with oral antibiotics. RECOMMENDATIONS: 1. Continue current antibiotics. 2. Agree with oral antibiotic regimen. 3. Consider discharge home with antibiotics and possible hospice care. cc: Yonathan Louis MD
[2019-01-17] MEDS: HALDOL IM PRN (21:26)
[2019-01-18] MEDS ORDERED: TRANSDERM-SCOP TD SCH (00:15)
[2019-01-18] MEDS: DUONEB (A & A) INH SCH ×6 (03:12→23:10)
[2019-01-18 06:14] LABS: HEMATOCRIT 32.4 % (42.0-52.0); HEMOGLOBIN 10.5 g/dL (14.0-18.0); MCH 31.3 PG (27-31); MCHC 32.4 g/dL (33-37); MCV 96.7 FL (81-99); RBC 3.35 XMIL (4.7-6.1); RDW 13.6 % (11.5-14.5); WBC 5.45 X1000 (4.8-10.8)
[2019-01-18 06:49] LABS: AGAP 13; BUN 21 mg/dL (8-22); CALCIUM 8.7 mg/dL (8.8-10.2); CHLORIDE 104 mmol/L (98-107); COSMO 280; CREATININE 0.9 mg/dL (0.7-1.2); ESTIMATED GFR > 60; GLUCOSE 97 mg/dL (70-104); POTASSIUM 4.4 mmol/L (3.5-5.1); SODIUM 139 mmol/L (136-145); TCO2 22 mmol/L (25-35)
--- NOTE | 2019-01-18 07:32 | INFECTIOUS DISEASE PROGRESS NO ---
DATE: 01/18/2019 PRESENT ILLNESS: Even though the patient's procalcitonin is less than 0.1, I still think he has a Pseudomonas pneumonia caused by aspiration. MEDICATIONS: This is the 5th day of treatment with Levaquin. PHYSICAL EXAMINATION: Vital Signs: Temperature is 98 degrees, pulse 61, respirations 25, blood pressure 124/73. The patient weighs 120 pounds. General: This is a chronically ill and emaciated elderly male. He is in no acute distress. In fact, today he was sleeping. Head/eyes/ears/nose/throat: No drainage noted from the nose or ears. He did finally wake up. When I looked in his mouth, I did not see any white patches. Neck: He did not seem to have any pain when he moved his neck. Lungs: Clear to auscultation. Cardiovascular: The patient's heart rate for the most part seemed to be regular, but there were smaller runs of heart beats which were irregular. Abdomen: Soft and nontender. A PEG tube is in place. The site is not purulent or erythematous. Neurologic: The patient was sleeping. He did wake up. He does not have a tremor. LAB AND X-RAY: There is no new lab study for today. The CBC today shows a white count of 5.45, hemoglobin 10.5, and platelet count 191,000. Creatinine is 0.9, GFR is greater than 60. Procalcitonin is less than 0.1. ASSESSMENT AND PLAN: As mentioned above, even though the procalcitonin is very low, I still think the patient has a Pseudomonas pneumonia due to aspiration. My plan is to continue with Levaquin. I checked with the Pharmacy and there is a liquid Levaquin and this may be best to give it through the patient's G-tube. I agree with Dr. Louis's assessment that the patient could be discharged. COMORBIDITIES: The patient is elderly. He has parkinsonism, gastroesophageal reflux disease, and dementia. cc: Trevor Rogers MD
[2019-01-18] MEDS: PULMICORT INH SCH ×2 (07:40→19:20)
[2019-01-18] MEDS: MUCOMYST 20% INH SCH ×2 (07:41→19:20)
[2019-01-18] MEDS: LEVAQUIN 500 MG/D5W 500 MG/100 ML IVPB IV SCH (08:23)
[2019-01-18] MEDS: RASAGILINE MESYLATE 1 MG PO SCH (08:24)
[2019-01-18] MEDS: CORDARONE PO SCH (08:25)
[2019-01-18] MEDS: PROTONIX PO SCH (08:25)
[2019-01-18] MEDS: SINEMET 25/100 PEG SCH ×4 (08:25→20:07)
[2019-01-18] MEDS: FLOMAX PO SCH ×2 (08:25→20:07)
[2019-01-18] MEDS: LOVENOX SUBQ SCH ×2 (08:26→09:10)
[2019-01-18] MEDS: ULTRAM PEG PRN ×2 (13:19→21:54)
--- NOTE | 2019-01-18 16:33 | PROGRESS NOTE ---
DATE: 01/18/2019 SUBJECTIVE: The patient is resting comfortably in bed. He complains of pain on his backside where he has a small ulceration. OBJECTIVE: Vital Signs: Temperature 98.6 degrees, blood pressure 121/63, heart rate 60, respirations 19, O2 saturations 100% on 2 L nasal cannula. General: This is a chronically ill- appearing elderly male lying in bed in no acute distress. Heart: S1, S2 normal, bradycardic. Lungs: Clear to auscultation bilaterally. Abdomen: Positive bowel sounds. Soft, nontender, nondistended. Extremities: No edema, no cyanosis. Neuro: The patient is awake and alert. He is able to move all 4 extremities. LABS: Hemoglobin 10, hematocrit 32, platelets 191,000. Sodium 149, potassium 4.4, chloride 104, CO2 22, BUN 21, creatinine 0.9, glucose 97. ASSESSMENT AND PLAN: 1. Acute hypoxemic respiratory failure. Continue with supplemental oxygen and antibiotic therapy. 2. Aspiration pneumonia secondary to Pseudomonas. The patient is currently on Levaquin, the patient will need to be transitioned to liquid Levaquin upon discharge. 3. Benign prostatic hypertrophy. Continue on Flomax. 4. Severe oropharyngeal dysphagia status post percutaneous endoscopic gastrostomy tube. Continue with tube feeds. 5. Gastroesophageal reflux disease. Continue on Protonix. 6. Parkinson disease. Continue on Sinemet. 7. Deep vein thrombosis prophylaxis. Continue on Lovenox. 8. Disposition. The patient is clinically stable for discharge. The patient's daughter is requesting inpatient rehab placement. The patient did not qualify for [facility] rehab placement. director pharmacy services and palliative care following for discharge plan. cc: Irma Swain MD
[2019-01-18] MEDS: PATIENT'S OWN MED PO SCH (20:07)
[2019-01-18] MEDS: HALDOL IM PRN (23:50)
[2019-01-19] MEDS: DUONEB (A & A) INH SCH ×6 (03:20→23:30)
[2019-01-19] MEDS: ULTRAM PEG PRN ×3 (03:20→16:01)
[2019-01-19 06:50] LABS: AGAP 10; BUN 23 mg/dL (8-22); CALCIUM 8.6 mg/dL (8.8-10.2); CHLORIDE 105 mmol/L (98-107); COSMO 282; ESTIMATED GFR > 60; GLUCOSE 87 mg/dL (70-104); POTASSIUM 4.4 mmol/L (3.5-5.1); SODIUM 140 mmol/L (136-145); TCO2 25 mmol/L (25-35)
[2019-01-19] MEDS: PULMICORT INH SCH (07:16)
[2019-01-19] MEDS: MUCOMYST 20% INH SCH ×2 (07:16→19:24)
[2019-01-19] MEDS: LEVAQUIN 500 MG/D5W 500 MG/100 ML IVPB IV SCH (09:18)
[2019-01-19] MEDS: SINEMET 25/100 PEG SCH ×4 (09:19→20:21)
[2019-01-19] MEDS: FLOMAX PO SCH ×2 (09:19→20:21)
[2019-01-19] MEDS: RASAGILINE MESYLATE 1 MG PO SCH (09:19)
[2019-01-19] MEDS: CORDARONE PO SCH (09:19)
[2019-01-19] MEDS: PROTONIX PO SCH (09:19)
[2019-01-19] MEDS: LOVENOX SUBQ SCH (09:20)
--- NOTE | 2019-01-19 10:41 | PROGRESS NOTE ---
DATE: 01/19/2019 INTERVAL HISTORY: No acute events overnight. SUBJECTIVE: He is denying any new complaints. He is sleepy, easily arousable, is not coughing a lot. He is denying any chest pain or shortness of breath. VITALS: Temperature 98.2 degrees, pulse 64, respiratory 13. Blood pressure 101/66. Saturating 99% 2 L nasal cannula. PHYSICAL EXAMINATION: Oral cavity is dry. Air entry bilaterally equal no wheeze, rhonchi, crackles S1, S2 normal. No murmur, rub, or gallop. Regular rhythm. He has a right-sided chest deep brain stimulator. Abdomen is scaphoid, soft, nontender, PEG tube site appears intact. No lower extremity edema. LABS: No CBC today. BMP is largely unremarkable. Microbiology no new data. No new imaging. ASSESSMENT AND PLAN: 1. Acute hypoxic respiratory failure due to aspiration pneumonia secondary to Pseudomonas. Continue Levaquin as per Infectious Disease recommendation and to be changed to liquid Levaquin at the time of discharge. Continue supplemental oxygen to maintain saturation more than 94%. 2. Intermittent episodes of atrial flutter with rapid ventricular response. He is status post intravenous amiodarone drip. Continue current dose of amiodarone. 3. History of Parkinson's disease and severe oropharyngeal dysphagia status post percutaneous endoscopic gastrostomy tube. Continue tube feeds, home sign a met and rasagiline. 4. His other home medication including citalopram, donepezil, and Nuplazid have been held considering he is on amiodarone and Levaquin which can prolong QTc. I am also holding his home quetiapine for now and continue haloperidol as needed for agitation. 5. Others continue enoxaparin for deep venous thrombosis prophylaxis, pantoprazole for chronic gastroesophageal reflux disease, tamsulosin for Benign prostatic hypertrophy , as needed tramadol for pain. DISPOSITION: According to documentation, the patient's daughter wanted the patient to go to any inpatient rehab. Social Service is on board to look for a place. Plan of care discussed with supervisor electron tube processing at the bedside. Her questions have been answered. He has been started on scopolamine patch likely for secretion management. I may consider discontinuing it after discussion with the nursing team. cc: Sathya Ybarra MD
[2019-01-19] MEDS: PATIENT'S OWN MED PO SCH (20:21)
[2019-01-19] MEDS: HALDOL IM PRN (21:44)
[2019-01-20] MEDS: DUONEB (A & A) INH SCH ×6 (03:14→23:21)
[2019-01-20] MEDS: PREVACID SOLUTAB PO SCH (06:36)
[2019-01-20] MEDS: ULTRAM PEG PRN ×2 (06:37→15:23)
[2019-01-20 06:56] LABS: AGAP 12; BUN 30 mg/dL (8-22); CALCIUM 9.1 mg/dL (8.8-10.2); CHLORIDE 100 mmol/L (98-107); COSMO 280; CREATININE 1.1 mg/dL (0.7-1.2); ESTIMATED GFR > 60; GLUCOSE 97 mg/dL (70-104); POTASSIUM 4.2 mmol/L (3.5-5.1); SODIUM 137 mmol/L (136-145); TCO2 25 mmol/L (25-35)
[2019-01-20] MEDS: MUCOMYST 20% INH SCH ×2 (07:43→19:25)
[2019-01-20] MEDS: LEVAQUIN 500 MG/D5W 500 MG/100 ML IVPB IV SCH (09:27)
[2019-01-20] MEDS: RASAGILINE MESYLATE 1 MG PO SCH (10:01)
[2019-01-20] MEDS: SINEMET 25/100 PEG SCH ×4 (10:01→21:28)
[2019-01-20] MEDS: FLOMAX PO SCH ×2 (10:01→21:28)
[2019-01-20] MEDS: CORDARONE PO SCH (10:01)
[2019-01-20] MEDS: LOVENOX SUBQ SCH (10:18)
--- NOTE | 2019-01-20 10:58 | INFECTIOUS DISEASE PROGRESS NO ---
DATE: 01/20/2019 PRESENT ILLNESS: The patient has Pseudomonas pneumonia, which most likely was caused by aspiration. MEDICATIONS: This is the seventh day of treatment with Levaquin. PHYSICAL EXAMINATION: Vital Signs: Temperature is 97.7 degrees, pulse 59, respirations 17, blood pressure 127/70. General: This is a chronically ill and emaciated, elderly male. He is in no acute distress. In fact, today the patient was more alert. He was talking and moving around in his bed. HEENT: The patient does have decreased hearing. I could not really check his vision well. I did not see any white patches in his mouth. Neck: No meningismus. Lungs: Clear to auscultation. Cardiovascular: Heart rate is regular, but occasionally there were small runs of irregular heart rate. Abdomen: Soft and nontender. A PEG is in place. That site is not erythematous or draining. Neurologic: As mentioned above, the patient is more alert today. He is talking to a small extent. IMAGING AND LABORATORY DATA: There is no chest x-ray or CBC for today. The patient's creatinine is 1.1. GFR is greater than 60. The procalcitonin level is less than 0.1. ASSESSMENT AND PLAN: As mentioned earlier, the procalcitonin level is very low, but I still think the patient could have a pneumonia. I am going to continue with Levaquin for now, and for tomorrow I have ordered a CBC and a chest x-ray. If the x-ray looks like the pneumonia has cleared up or at least getting better, then I think the patient, from an Infectious Disease point of view, could be discharged, and if there is still infiltrate present, I would continue his Levaquin. COMORBIDITIES: The patient is elderly. He has parkinsonism, gastroesophageal reflux disease, and dementia. cc: Trevor Rogers MD
--- NOTE | 2019-01-20 11:52 | PROGRESS NOTE ---
DATE: 01/20/2019 SUBJECTIVE: Per family who is at bedside, apparently there has been interaction with the scopolamine patch and the Parkinson's disease medication. He is a little more restless. No other issues noted. OBJECTIVE: Vital Signs: Temperature 97.7 degrees, heart rate 59, respiratory 17, blood pressure 127/70, O2 saturation 96% on 3 L nasal cannula. General: This is a chronically ill-looking 73- year-old male, lying in bed, in no acute distress. Cardiovascular: S1, S2 heard. No murmurs, gallops, or rubs. Regular rate and rhythm. Respiratory: Some scattered coarse breath sounds noted in both pulmonary bases. The patient has a right-sided chest deep brain stimulator. Abdomen: Soft. Depressed. Nontender to palpation. PEG tube in site. Extremities: No clubbing, cyanosis, or edema. Peripheral pulses present in both legs. Neurological: Patient is agitated and not able to talk to me at this point, drooling. LABORATORY DATA: BMP from today is completely normal. ASSESSMENT AND PLAN: 1. Acute hypoxemic respiratory failure secondary to aspiration pneumonia secondary to Pseudomonas. We will continue Levaquin. Infectious Disease is following this patient. We will continue with same management. 2. Intermittent episodes of atrial flutter with rapid ventricular rate. At this point, the patient is on amiodarone, and heart rate has been controlled completely now. 3. History of Parkinson disease with severe oropharyngeal dysphagia, status post PEG tube placement. We will continue with bolus per feeding tube. 4. Agitation. 5. Disposition. Patient will be transferred to this facility whenever we have a bed available. cc: Elier Linn MD
[2019-01-20] MEDS: HALDOL IM PRN (19:18)
[2019-01-20] MEDS: PATIENT'S OWN MED PO SCH (21:28)
[2019-01-21] MEDS: DUONEB (A & A) INH SCH ×6 (03:35→23:29)
[2019-01-21] MEDS: PREVACID SOLUTAB PO SCH (06:01)
--- NOTE | 2019-01-21 06:09 | Diag Imaging Result Doc PS360 ---
EXAM: CHEST-1 VIEW HISTORY: pneumonia TECHNIQUE: Single view COMPARISON: 01/17/2019 FINDINGS: The lungs are well expanded. No cardiomegaly. There are infiltrates in the mid and lower left lung. No pulmonary edema. Questionable tiny left effusion. IMPRESSION: Worsening left basilar infiltrates Electronically signed by Theo Jeffers 01/21/2019 6:07 AM
[2019-01-21 06:22] LABS: BASO# 0.03 X1000 (0.0-0.2); BASO% 0.5 % (0.0-0.8); EOS# 0.25 X1000 (0.0-0.7); EOS% 4.3 % (0.0-10.0); HEMATOCRIT 36.1 % (42.0-52.0); HEMOGLOBIN 11.4 g/dL (14.0-18.0); IMM GRAN# 0.04 X1000 (0.0-0.04); IMM GRAN% 0.7 % (0.0-0.5); LYMPH# 1.26 X1000 (1.2-3.4); LYMPH% 21.8 % (20.5-51.1); MCH 30.4 PG (27-31); MCHC 31.6 g/dL (33-37); MCV 96.3 FL (81-99); MONO# 0.53 X1000 (0.11-0.59); MONO% 9.2 % (1.7-9.3); MPV 10.5 FL (7.4-10.4); NEUT# 3.66 X1000 (1.4-6.5); NEUT% 63.5 % (42.2-75.2); PLT 220 X1000 (130-400); RBC 3.75 XMIL (4.7-6.1); RDW 13.2 % (11.5-14.5); WBC 5.77 X1000 (4.8-10.8)
[2019-01-21] MEDS: MUCOMYST 20% INH SCH ×2 (07:56→19:50)
--- NOTE | 2019-01-21 08:45 | INFECTIOUS DISEASE PROGRESS NO ---
DATE: 01/21/2019 PRESENT ILLNESS: The patient has a Pseudomonas pneumonia which most likely was caused by the patient aspirating. MEDICATIONS: This is day 5 of treatment with IV Levaquin. PHYSICAL EXAMINATION: Vital Signs: Temperature is 98 degrees, pulse 53, respirations 16, blood pressure 124/70. General: This is a chronically ill and emaciated elderly male. He is in no acute distress. He is lethargic today. Head, eyes, ears, nose, and throat: I could not really discern how well the patient could hear or see this morning. He was very sleepy. No drainage was noted from the nose or ears. Neck: The patient did not appear to have any pain when he moved his neck. Lungs: There were bilateral rhonchi. Cardiovascular: Heart rate was regular. Abdomen: Soft and nontender. A PEG is in place. The site is not erythematous or purulent. Neurologic: As mentioned today, the patient is very sleepy. He did open his eyes when I talked to him, but he did not move his extremities to request and he did not talk. Integument: No rash noted. LAB AND X-RAY: Chest x-ray shows a left lung middle and lower infiltrate. Creatinine is 1.1. GFR is greater than 60. CBC shows a white count of 5770, hemoglobin 11.4, and platelet count 220,000. ASSESSMENT AND PLAN: Even though the patient's procalcitonin level was very low, I still think the patient has Pseudomonas pneumonia. I plan to treat the patient with Levaquin for a total of 14 days. He will have 9 days left of treatment. COMORBIDITIES: The patient is elderly. He has parkinsonism, gastroesophageal reflux disease, and dementia. cc: Trevor Rogers MD
[2019-01-21] MEDS: LEVAQUIN 500 MG/D5W 500 MG/100 ML IVPB IV SCH (09:13)
[2019-01-21] MEDS: FLOMAX PO SCH ×2 (09:14→21:40)
[2019-01-21] MEDS: RASAGILINE MESYLATE 1 MG PO SCH (09:14)
[2019-01-21] MEDS: SINEMET 25/100 PEG SCH ×4 (09:14→21:40)
[2019-01-21] MEDS: CORDARONE PO SCH (09:14)
[2019-01-21] MEDS: LOVENOX SUBQ SCH (09:15)
--- NOTE | 2019-01-21 10:40 | PROGRESS NOTE ---
DATE: 01/21/2019 SUBJECTIVE: The patient, according to nursing staff, has been much better. No family is at bedside to confirm that he has been okay. Definitely less restless today. OBJECTIVE: Vital Signs: Temperature 97.5 degrees, heart rate 53, respiratory rate 22, blood pressure 117/67, O2 saturation 98% on 2 L nasal cannula. General: This is a chronically ill- looking, 73-year-old, male, lying in bed in no acute distress. Cardiovascular: S1, S2 heard. No murmurs, gallops, or rubs. Regular rate and rhythm. Respiratory: Some scattered coarse breath sounds noted in both pulmonary bases. The patient has a right- sided chest deep brain stimulator. Abdomen: Soft, depressed, nontender to palpation, with PEG tube in situ. Extremities: No clubbing, cyanosis, or edema. Peripheral pulses are present in both legs. Neurologic: The patient is not agitated. The patient is not able to talk, drooling, rigid. He is not moving all 4 extremities. LABORATORY DATA: Reviewed. ASSESSMENT AND PLAN: 1. Acute hypoxemic respiratory failure secondary to aspiration, secondary to Pseudomonas. Will continue with Levaquin according to Infectious Disease recommendations. 2. Intermittent episodes of atrial flutter with rapid ventricular response. The patient is on amiodarone, and since then heart rate is well controlled. 3. History of Parkinson's disease with severe oropharyngeal dysphagia, status post percutaneous endoscopic gastrostomy tube. Will continue with feeding, but with bolus by PEG tube. 4. Agitation. The patient is definitely much more stable. 5. Disposition. At this point, the patient is awaiting a rehab bed. cc: Elier Linn MD [facility]
[2019-01-21 11:05] LABS: AGAP 9; ALB/GLOB RATIO 0.9; ALBUMIN 3.3 g/dL (3.5-5.0); ALKALINE PHOSPHATASE 51 U/L (32-122); BUN 25 mg/dL (8-22); CALCIUM 8.9 mg/dL (8.8-10.2); CHLORIDE 103 mmol/L (98-107); COSMO 280; CREATININE 1.1 mg/dL (0.7-1.2); ESTIMATED GFR > 60; GLUCOSE 91 mg/dL (70-104); GOT 16 U/L (10-34); GPT 9 U/L (10-44); POTASSIUM 4.2 mmol/L (3.5-5.1); SODIUM 138 mmol/L (136-145); TCO2 26 mmol/L (25-35); TOTAL BILIRUBIN 0.42 mg/dL (0.20-1.00)
[2019-01-21] MEDS: HALDOL IM PRN (21:39)
[2019-01-21] MEDS: PATIENT'S OWN MED PO SCH (21:41)
[2019-01-21] MEDS: ULTRAM PEG PRN (23:22)
--- NOTE | 2019-01-22 02:11 | PULMONOLOGY PROGRESS NOTE ---
DATE: 01/21/2019 SUBJECTIVE: The patient is awake and alert. He denies specific complaints. OBJECTIVE: Vital Signs: The patient has been afebrile for the last 24 hours. Blood pressure is 138/80, heart rate is 78, respiratory rate is 18, oxygen saturation is 97% on 2 L per nasal cannula. HEENT: Pupils are equal and reactive. Oropharynx appears clear. Neck: Supple. Chest: Reveals occasional rhonchi bilaterally. Cardiac: S1, S2. Abdomen: Soft. Extremities: Without edema. LABORATORY DATA: White blood count 5.77, hemoglobin 11.4, platelet count 220,000. IMPRESSION: 1. A 73-year-old with pseudomonal pneumonia. 2. Parkinson disease. 3. Acute hypoxemic respiratory failure. 4. Pneumonia. PLAN: 1. Agree with antibiotic plan outlined by Dr. Rogers. 2. Continue bronchial hygiene. 3. Wean oxygen as tolerated. 4. The patient can be discharged from a pulmonary standpoint. cc: Yonathan Louis MD
[2019-01-22] MEDS: DUONEB (A & A) INH SCH ×6 (03:40→23:43)
[2019-01-22] MEDS: PREVACID SOLUTAB PO SCH (06:21)
[2019-01-22] MEDS: MUCOMYST 20% INH SCH ×2 (08:13→19:19)
--- NOTE | 2019-01-22 09:10 | INFECTIOUS DISEASE PROGRESS NO ---
DATE: 01/22/2019 PRESENT ILLNESS: The patient has a Pseudomonas pneumonia which most likely was caused by the patient aspirating. MEDICATIONS: This is day 6 of treatment with IV Levaquin. PHYSICAL EXAMINATION: Vital Signs: Temperature is 98 degrees, pulse 50, respirations 14, blood pressure 132/75. General: This is a chronically ill and malnourished-appearing, elderly male. He is in no acute distress. He was sleeping but he did wake up. Head/eyes/ears/nose/throat: No drainage was seen from the nose or ears. I did not see any white patches in his mouth. Neck: No pain with movement passively of his neck. Lungs: Clear to auscultation. Cardiovascular: Heart rate is regular. Abdomen: Soft and nontender. The patient pulled out his PEG last night. Neurologic: The patient is arousable today. He answered questions by shaking his head yes or no. There was no tremor. LAB AND X-RAY: Chest x-ray shows left lung infiltrate. CBC shows a white count of 5770, hemoglobin 11.4, and platelet count 220,000. Creatinine is 1.1. GFR is greater than 60. Liver function studies are normal. If he could add under physical exam thorax the patient has some device in the upper right chest with a tube that goes upward and I am not sure where it ends. ASSESSMENT/PLAN: Even though the patient's procalcitonin was low, I still think he has a Pseudomonas pneumonia. I plan on continuing Levaquin for 8 more days to complete a 14 day treatment course. COMORBIDITIES: The patient is elderly. He has Parkinsonism, gastroesophageal reflux disease, and dementia. cc: Trevor Rogers MD
[2019-01-22] MEDS: LEVAQUIN 500 MG/D5W 500 MG/100 ML IVPB IV SCH (09:14)
--- NOTE | 2019-01-22 10:06 | PROGRESS NOTE ---
DATE: 01/22/2019 INTERVAL HISTORY: Unfortunately, he had pulled out his PEG tube overnight. In the morning time, he denies any new complaints. He appears tired. VITALS: Temperature of 97.4 degrees, pulse 49, respiratory rate 16, blood pressure 96/65 and saturating 100% on 2 L nasal cannula. PHYSICAL EXAMINATION: Oral cavity is dry.Lungs: Air entry bilaterally equal. No wheeze, rhonchi, or crackles. Cardiovascular: S1, S2 normal. No murmur, rub, or gallop. Appears regular. PEG tube site has mild oozing without any obvious bleeding. No undue tenderness. Extremities: No lower extremity edema. Neurologic: He is alert. He is answering questions slowly. LABORATORY: Labs suggestive of normal CBC and normal electrolytes. MICROBIOLOGY: No new data. ASSESSMENT AND PLAN: 1. Acute hypoxic respiratory failure due to aspiration pneumonia secondary to Pseudomonas. Continue Levaquin. Day 1 of antibiotics was 01/16 for a total of 14 days, and oxygen to maintain saturation more than 94%. 2. PEG tube dislodgement. I will consult gastroenterology team to see if he could replace his PEG tube. I am holding his enoxaparin. 3. Paroxysmal atrial flutter with rapid ventricular response and is now well controlled. Current current dose of amiodarone. History of Parkinson's disease and severe oropharyngeal dysphagia status post previous PEG tube. Continue NPO status. I will resume his home medications once we have enteral access. 4. Others: Continue to resume his medications for deep venous thrombosis prophylaxis. 5. Chronic GERD. 6. Agitation associated with the Parkinson's disease. We will give as needed haloperidol. DISPOSITION: Continue to monitor patient in PVC unit. Plan of care discussed with the patient's son-in-law. His questions were answered. cc: Sathya Ybarra MD [facility]
[2019-01-22] MEDS ORDERED: LR 1,000 ML IV SCH (13:00)
--- NOTE | 2019-01-22 13:11 | GASTROENTEROLOGY CONSULTATION ---
DATE: 01/22/2019 REASON FOR CONSULTATION: PEG tube dislodgement. HISTORY OF PRESENT ILLNESS: Mr. Kumar is a 73-year-old male history of hypertension, Parkinson's status post deep brain stimulator, BPH status post TURP, abdominal aortic aneurysm repair, prior PEG replacement. Currently he is in the hospital and he has pulled out his PEG tube last night. His PEG tube was placed on 10/19/2018. PAST MEDICAL HISTORY: PEG tube placement, Hypertension, Parkinson disease, GERD, BPH. PAST SURGICAL HISTORY: TURP, deep brain stimulator, abdominal aortic aneurysm repair, prior PEG placement. FAMILY HISTORY: No significant history of GI malignancies. SOCIAL HISTORY: Past smoker. Denies alcohol or drug use. Lives with his and kids. MEDICATIONS: Home medications are Azilect 1 mg daily, citalopram HBR 20 mg at bedtime, Protonix 40 mg daily, Norvasc 2.5 mg daily, Aricept 10 mg daily, carbidopa/levodopa 25/100 one tablet, Colace 100 mg daily, Flomax 0.4 mg twice a day, Nuplazid 34 mg at bedtime, Seroquel 25 mg at bedtime p.r.n. ALLERGIES: No known drug allergies. REVIEW OF SYSTEMS: As per HPI otherwise 12 point review of system is negative PHYSICAL EXAMINATION: Vital Signs: Temperature 97.8 degrees, pulse 55, respirations 20, blood pressure is 146/74, oxygen saturation is 100% on 2 L nasal cannula. His weight is 126 pounds, BMI is 18.1 kg/m2. General: He is alert, oriented x1, frail, sleepy and responding with a nod. HEENT: Pale conjunctivae. No icterus. PERRL. Neck: Supple. Cardiac: Regular rate and rhythm. Lungs: Clear to auscultation in the anterior lung dodd. Abdomen: Soft, nontender, non distended, hypoactive bowel sounds in all 4 quadrants. PEG tube dislodgement. Dressing on the right side of the abdomen. Extremities: No clubbing, cyanosis, or edema. Pedal pulses 2+ present bilaterally. Neurologic: He is alert, oriented x1. Nonfocal. Cranial nerves 2-12 grossly intact. LABORATORY DATA: WBCs 5.77, RBC 3.75, hemoglobin 11.4, hematocrit 36.1, platelet count is 220,000. Sodium is 138, potassium is 4.2, chloride is 103, carbon dioxide is 26, anion gap 9, BUN 25, creatinine 1.1, calcium is 8.9. AST is 16, ALT is 9, alkaline phosphatase is 51. IMAGING: Chest x-ray showed worsening of the left basilar infiltrates. IMPRESSION AND PLAN: 1. PEG tube dislodgement. 2. Acute hypoxic respiratory failure. 3. Parkinson disease. 4. Pneumonia. 5. Gastroesophageal reflux disease. 6. Paroxysmal atrial flutter. PLAN: Dr. Lewis replaced the PEG tube at the bedside. He is currently NPO and per his PCP once the PEG tube is placed, he will be resuming his medications and enteral access. We will continue to monitor the patient and follow the plan of care per PCP. This plan was discussed with Dr. Lewis. Thank you for the consult. Please call us with further questions or concerns. Dictated by JOLYNN Regan for Filipe Lewis MD Physician Attestation I have seen and examined the patient. I have discussed and reviewed the the note by Marium NEIL and agree with findings and plan as documented. In brief, Mr. Kumar is a 73 year old man with Parkinson's, protein calorie malnutrition, h/o abdominal wall cellulitis, oropharyngeal dysphagia s/p PEG placement in 10/2018 who was admitted for acute hypoxic respiratory distress in the setting of aspiration PNA. Course complicated by AFIB with RVR. GI consulted for dislodged PEG tube overnight. Tract was narrowed but not completely closed. I was able to dilate tract with swabs and place a 18F replacement PEG. PEG was flushed with 100 mL of water and gastric contents were aspirated. External bolster was secured at 2cm from the skin. No complications during replacement. PEG ok to use; resume PEG tube care. Please call with questions. Consider abdominal binder to prevent patient from pulling tube out again. Will sign off. Please call with questions. MTDD
[2019-01-22] MEDS: RASAGILINE MESYLATE 1 MG PO SCH (13:20)
[2019-01-22] MEDS: FLOMAX PO SCH ×2 (13:21→23:03)
[2019-01-22] MEDS: SINEMET 25/100 PEG SCH ×4 (13:21→23:03)
[2019-01-22] MEDS: CORDARONE PO SCH (13:21)
[2019-01-22] MEDS: HALDOL IM PRN ×2 (18:11→21:04)
[2019-01-22] MEDS: ULTRAM PEG PRN (23:02)
[2019-01-22] MEDS: PATIENT'S OWN MED PO SCH (23:03)
[2019-01-23] MEDS: HALDOL IM PRN (03:32)
[2019-01-23] MEDS: DUONEB (A & A) INH SCH ×3 (03:49→11:19)
[2019-01-23] MEDS: PREVACID SOLUTAB PO SCH (06:15)
[2019-01-23] MEDS: MUCOMYST 20% INH SCH (08:03)
[2019-01-23] MEDS: LEVAQUIN 500 MG/D5W 500 MG/100 ML IVPB IV SCH (08:06)
[2019-01-23] MEDS: FLOMAX PO SCH (08:07)
[2019-01-23] MEDS: RASAGILINE MESYLATE 1 MG PO SCH (08:07)
[2019-01-23] MEDS: SINEMET 25/100 PEG SCH ×2 (08:07→12:35)
[2019-01-23] MEDS: CORDARONE PO SCH (08:09)
--- NOTE | 2019-01-23 10:37 | PROGRESS NOTE ---
DATE: 01/23/2019 INTERVAL HISTORY: GI team had evaluated the patient, and his PEG tube was replaced back. He was resumed on all of his home medications. SUBJECTIVE: The patient is awake. He keeps his mouth open. He follows simple commands, but he is not able to verbalize not in any distress though. VITALS: Temperature 99 degrees, pulse of 69, respiratory 19, blood pressure 130/78, and saturating 100% on room air. PHYSICAL EXAMINATION: General: He does not appear in any acute distress. HEENT: Oral cavity is dry with flecks of mucus that I could see. Lungs: Air entry bilaterally equal. No wheeze or rhonchi. Mild inspiratory crackles, infrascapular region. Heart: S1, S2 normal. Regular. No murmur, rub, or gallop. Abdomen: Scaphoid, soft, and nontender. PEG tube site in place and functioning appropriately. Active bowel sounds. Extremities: No lower extremity edema. Neurologic: He is alert. He is following simple commands like wiggling toes and fingers and coughing though the cough is weak. LABORATORY: No new labs today. His INR is normal systolic. No new labs today. I will follow up with CBC and BMP. His INR on admission was normal. ASSESSMENT AND PLAN: 1. Acute hypoxic respiratory failure due to aspiration pneumonia due to Pseudomonas. Continue Levaquin, day 1 of antibiotics was 01/16 for a total of 14 days and oxygen to maintain saturation more than 94%. 2. PEG tube dislodgement status post replacement by GI team. I will continue abdominal binder, and I will resume his enoxaparin tomorrow. 3. Paroxysmal atrial flutter with rapid ventricular response. Continue amiodarone. 4. Others: History of Parkinson's disease, severe oropharyngeal dysphagia status post PEG tube, Parkinson disease, associated agitation as well as hospital-acquired delirium. Continue his home carbidopa levodopa, rasagiline, Nuplazid, and as needed haloperidol. 5. Others: Chronic gastroesophageal reflux disease. I will continue him on proton pump inhibitors, continue tamsulosin for BPH, tramadol as needed for pain. DISPOSITION: I will continue patient on the floor and transfer him to infected routine medical floor awaiting rehab bed. Plan of care discussed with poem writer at bedside. I also brought up an idea about home with home physical therapy. I will await discussion with patient's family. Their questions have been answered. cc: Sathya Ybarra MD
[2019-01-23 12:08] VITALS: BP 122/68
--- NOTE | 2019-01-23 12:52 | INFECTIOUS DISEASE PROGRESS NO ---
DATE: 01/23/2019 PRESENT ILLNESS: The patient has Pseudomonas pneumonia, which occurred because the patient aspirates. MEDICATIONS: This is the 7th day of treatment with IV Levaquin. PHYSICAL EXAMINATION: Vital Signs: Temperature is 97.8 degrees, pulse 81, respirations 16, blood pressure 112/65. General: This is a chronically ill and malnourished-appearing elderly male. He is in no acute distress. Head, Eyes, Ears, Nose, and Throat: There is no drainage from the nose or ears. I did not see any white patches in his mouth. Neck: No apparent pain with movement of his neck. Lungs: Clear to auscultation. Cardiovascular: Heart rate is regular. Abdomen: Soft and nontender last night. The patient's PEG has been reinserted. Neurologic: The patient seems to be in a delirium today. He just stares ahead. He just stares without moving his eyes, and he does not respond to verbal stimuli. LAB AND X-RAY: There is no new radiographic study. The CBC shows a white count of 5770, hemoglobin 11.4, and platelet count of 220,000. Creatinine is 1.1, GFR is greater than 60. Liver function studies are normal. ASSESSMENT AND PLAN: The patient has Pseudomonas pneumonia. I plan on treating the patient with Levaquin for 7 more days to complete a 14 day treatment course. Since the patient's G-tube is back in, I am going to change the patient from IV Levaquin to Levaquin through the G-tube. COMORBIDITIES: The patient is elderly. He has parkinsonism, gastroesophageal reflux disease, dementia, and aspiration. cc: Trevor Rogers MD
--- NOTE | 2019-01-24 05:56 | DISCHARGE SUMMARY ---
ADMISSION DATE: 01/10/2019 DISCHARGE DATE: 01/23/2019 DISCHARGE DISPOSITION: He is being transferred to [facility] for further care. DISCHARGE CONDITION: Hemodynamically stable. He is breathing well on nasal cannula 3 L. His heart rate is in normal sinus rhythm. DISCHARGE INSTRUCTIONS: Outpatient followup with Cardiology about titration of atrial fibrillation medication including amiodarone. Outpatient followup with regular physician for future medication reconciliation, and monitoring of QTc interval considering he would be on multiple medications which can prolong QTc. Outpatient Neurology follow-up for his Parkinson's disease. DISCHARGE DIAGNOSES: 1. Acute hypoxic respiratory failure. 2. Aspiration pneumonia due to Pseudomonas in left lower lobe. 3. Paroxysmal atrial flutter with rapid ventricular response. 4. PEG tube dislodgement. 5. History of Parkinson's disease with oropharyngeal dysphagia status post PEG tube. 6. Hospital-acquired delirium. 7. Chronic gastroesophageal reflux disease. 8. Essential hypertension. 9. History of Parkinson's disease, status post deep brain stimulator. CURRENT MEDICATIONS: 1. Rasagiline 1 mg daily. 2. Carbidopa-levodopa 2500 mg tablet 1 tablet 4 times a day. 3. Pimavanserin or Nuplazid 34 mg at nighttime. 4. Tamsulosin 0.4 mg b.i.d. 5. Docusate 200 mg daily. 6. Amiodarone 400 mg daily. He should have outpatient Cardiology for dose titration. 7. Albuterol ipratropium 3 mL inhaled every 4 hours for shortness of breath. 8. Haloperidol 2 mg intramuscularly every 4 hours as needed for agitation. 9. [place] cystine 20% 3 mL inhaled routine b.i.d. 10. Lansoprazole 15 mg daily. 11. Tramadol 50 mg every 6 hours as needed for pain. DIET: The patient is strict NPO. He should receive tube feeds and medications through PEG tube. VITALS: At the time of discharge, temperature 98 degrees, pulse 58, respiratory 15, blood pressure 122/68 and saturating 100% on 3 L nasal cannula. PHYSICAL EXAMINATION: He is not in any acute distress. HEENT: Oral cavity is dry. Lungs: Air entry bilaterally equal. No wheeze or rhonchi. Mild left infrascapular crackles. Cardiovascular: S1, S2 normal. Regular. No murmur, rub, or gallop. Chest Wall: Right-sided implanted deep brain stimulator. Abdomen: Scaphoid and nontender. PEG tube site intact without any surrounding erythema or pus. Nontender. Extremities: No lower extremity edema. He does not have urine catheter. Neurologic: He is alert. He is oriented to himself. He follows commands like opening mouth and wiggling fingers and toes. However, he tends to keep his mouth open. SIGNIFICANT LABORATORY DURING HOSPITAL ADMISSION AND DISCHARGE: [place] [address] on admission, which improved to 5.7 on discharge. Hemoglobin is 11.4 and platelets 220,000. His potassium is 4.2, sodium 138, BUN of 25, and creatinine of 1.1. His GFR is more than 60. SIGNIFICANT MICROBIOLOGY DURING HOSPITAL ADMISSION: Blood culture did not have any growth. Sputum culture grew Pseudomonas aeruginosa which was sensitive to amikacin, gentamicin, levofloxacin and tobramycin, and it was resistant to ceftazidime. SIGNIFICANT IMAGING DURING HOSPITAL ADMISSION: Chest CT on 01/10, he had fluid and mucus opacification of several airways bilaterally, multifocal infiltrate in the lung bases. Trace pleural effusions and advanced chronic lung disease. On chest x-ray on 01/17, he had improvement in left lower lobe infiltrate pneumonia with stable pulmonary vascular congestion. However, chest x-ray on 01/21 had worsening left basilar infiltrate. HOSPITAL COURSE SUMMARY: Mr. Kumar is a 73-year-old man with past medical history of Parkinson's disease with oropharyngeal dysphagia status post PEG tube, who initially presented on 01/10/2019 with chief complaints of wheezing and hypoxia with oxygen saturation of 80% on arrival. Apparently, patient was not supposed to be eating by mouth. However, at home, he was drinking and taking some liquid food which he was not able to swallow and he had a coughing spell at home following which he was wheezing which did not get better within 12 hours so he was brought to the emergency room. In the emergency room, he was found to have hypoxia with saturation of 80% on room air and aspiration pneumonia so he was admitted under hospitalist service. Infectious Disease and Pulmonology team were consulted. The patient was started on broad-spectrum intravenous antibiotic, and oxygen therapy through a Ventimask, which improved his symptoms. His sputum culture grew Pseudomonas since antibiotics were changed to levofloxacin. His first day of antibiotics was 01/16, and the ID team had recommended at least 14 days of antibiotics preferably IV. He was continued to be kept NPO. While inside the hospital, he also developed episodes of atrial flutter with heart rate as high as 160 to 180 beats per minute requiring intravenous amiodarone drip and cardiology consultation who had recommended converting him to oral amiodarone. He will be discharged on oral amiodarone. He should also have outpatient Cardiology followup, and have a discussion about future need for blood thinners and amiodarone titration. TIME SPENT: More than 30 minutes were spent in discharging this patient. I went to the bedside and updated patient's about the plan. I also informed her about cardiology follow up, titration of amiodarone. cc: Sathya Ybarra MD MTDD
[2019-01-24] MEDS ORDERED: NON-FORMULARY BULK MED GT SCH (09:00)
== END 2019-01-23 15:20 | disposition short-term general hospital (02) | DRG 177 ==
LOC: ED 07:30 → EDIPHOLD 13:06 → SUATTDRO 13:06 → ICU 16:27 → 2N 01-11 17:57
PROVIDERS: ATTEND Internal Medicine